=== PATIENT | female | born 1960 | race Caucasian/White ===

== ENCOUNTER 2016-10-20 07:35 | Day surgery (SDC) | payer OTHER ==
[2016-10-20] MEDS ORDERED: NS 1000 ML 1,000 ML ONE (08:29)
[2016-10-20] MEDS ORDERED: DIPRIVAN VIAL 20 ML ONE (09:33)
[2016-10-20 09:59] VITALS: BP 138/68
== END 2016-10-20 10:10 | disposition home or self-care (01) ==
LOC: SURG1 07:35
PROVIDERS: ATTEND Internal Medicine Gastroenterology
PROC: 0DB58ZX Excision of Esophagus, Via Natural or Artificial Opening Endoscopic, Diagnostic (ICD-10-PCS; principal; 2016-10-20 10:15)
PROC: 0DB68ZX Excision of Stomach, Via Natural or Artificial Opening Endoscopic, Diagnostic (ICD-10-PCS; principal; 2016-10-20 10:15)
PROC: 0DJ08ZZ Inspection of Upper Intestinal Tract, Via Natural or Artificial Opening Endoscopic (ICD-10-PCS; principal; 2016-10-20 10:15)
DX: K21.9 Gastro-esophageal reflux disease without esophagitis (principal); Z87.19 Personal history of other diseases of the digestive system; K29.60 Other gastritis without bleeding
CPT/HCPCS: A4217; J3490

== ENCOUNTER → 2017-04-19 | Outpatient (CLI) | payer OTHER ==
--- NOTE | 2017-04-19 12:37 | MRI ---
MRI SPINE LUMBAR WITHOUT CONTRAST CLINICAL HISTORY: 56-year-old female with chronic low back pain. COMPARISON: None. Technique: Multiplanar, multisequence MRI images of the lumbar spine were obtained without the admin istration of contrast. FINDINGS: The most caudad, fully-formed intervertebral disc will be labeled L5-S1 for the purpose of this dictation. Mild straightening of the lumbar lordosis as imaged. Alignment is maintained. There i s preservation of vertebral body and disc space height. Marrow signal is unremarkable with mild signa l loss of the disc at L5-S1. Remaining disc signal is normal. Rudimentary disc at S1-S2. Cord signal is normal. The conus medullaris is normal in signal characteristics and morphology and terminates at the L1-2 level. T11-T12: Small symmetric disc bulge without central canal or neural foraminal stenosis. T12-L1: Small symmetric disc bulge with mild facet hypertrophy without central canal or neural forami nal stenosis. L1-L2: Moderate symmetric disc bulge and facet hypertrophy without central canal or neural foraminal stenosis. L2-L3: Moderate symmetric disc bulge with moderate facet hypertrophy and mild thickening of ligamentu m flavum without central canal or neural foraminal stenosis. L3-L4: Large symmetric disc bulge with moderate facet hypertrophy without central canal or neural for aminal stenosis. L4-L5: Large symmetric disc bulge with severe facet hypertrophy and bilateral posterior subcentimeter synovial cysts. Mild bilateral neural foraminal stenosis with flattening of the dorsal aspect of the exiting L4 nerve roots. L5-S1: Large symmetric disc bulge with severe facet hypertrophy and thickening of the ligamentum flav um with fluid within the facet joints. Moderate left neural foraminal stenosis with flattening of the dorsal aspect of the exiting L5 nerve root with mild right-sided neural foraminal stenosis. Paraspinous soft tissues demonstrate mild fatty atrophy of the paraspinous musculature. Remaining par aspinous soft tissues are unremarkable. IMPRESSION: 1. 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 2. See level by level descriptions above. Reported By:
== END ==
LOC: RAD 09:15
PROVIDERS: ATTEND Internal Medicine
DX: M51.36 Other intervertebral disc degeneration, lumbar region (principal); M51.37 Other intervertebral disc degeneration, lumbosacral region
CPT/HCPCS: 72148

== ENCOUNTER 2017-05-04 16:08 | Observation (INO) | payer OTHER ==
[2017-05-04] MEDS: DUONEB 0.5 MG/3 MG NEB SCH ×2 (16:45→21:14)
[2017-05-04] MEDS ORDERED: DUONEB 0.5 MG/3 MG ONE (16:46)
[2017-05-04 18:03] VITALS: BMI 36.4
[2017-05-04 18:32] LABS: BASOPHILS % (AUTO) 0.4 % (0.2-1.0); EOSINOPHILS % (AUTO) 0.2 % (0.9-2.9); HEMATOCRIT 31.1 % (36.0-47.0); HEMOGLOBIN 10.6 g/dL (12.0-16.0); LYMPHOCYTES # (AUTO) 1.5 X10^3/uL (1.3-2.9); LYMPHOCYTES % (AUTO) 22.1 % (21.0-51.0); MEAN CORPUSCULAR HEMOGLOBIN 31.9 pg (27.0-34.0); MEAN CORPUSCULAR VOLUME 93.6 fL (80.0-100.0); MEAN PLATELET VOLUME 9.7 fL (7.4-11.0); MONOCYTES # (AUTO) 0.6 x10^3/uL (0.3-0.8); MONOCYTES % (AUTO) 8.6 % (0.0-13.0); NEUTROPHILS # (AUTO) 4.6 x10^3/uL (2.2-4.8); NEUTROPHILS % (AUTO) 68.7 % (42.0-75.0); PLATELET COUNT 250 X10^3/uL (150.0-450.0); RED BLOOD COUNT 3.32 X10^6/uL (3.5-5.4); RED CELL DISTRIBUTION WIDTH 15.7 % (11.6-16.5); WHITE BLOOD COUNT 6.7 X10^3/uL (3.6-10.0)
[2017-05-04 18:55] LABS: ALANINE AMINOTRANSFERASE 31 Units/L (12-78); ALBUMIN 3.4 g/dL (3.4-5.0); ALKALINE PHOSPHATASE 49 Units/L (46-116); ASPARTATE AMINO TRANSFERASE 17 Units/L (15-37); BLOOD UREA NITROGEN 10 mg/dL (7-18); CALCIUM 8.6 mg/dL (8.5-10.1); CHLORIDE 105 mmol/L (98-107); COR NA(FOR HYPERGLY) 143 mmol/L (136-145); SODIUM 141 mmol/L (136-145); TOTAL PROTEIN 6.8 g/dL (6.4-8.2); eGFR BLACK RACES 55 (>60); eGFR NON BLACK RACES 45 (>60)
--- NOTE | 2017-05-04 18:56 | RAD ---
History: Cough and shortness of breath Study: PA and lateral chest Comparison: April 22, 2016 Reported By:
[2017-05-04] MEDS ORDERED: LEVAQUIN PREMIX IV 750 MG 750 MG/150 ML BAG IV SCH (19:00)
[2017-05-04] MEDS ORDERED: POTASSIUM CHL 40 MEQ/NS 0.45% 500 ML IV PRN (19:16)
[2017-05-04] MEDS ORDERED: POTASSIUM CHLORIDE LIQ 20 MEQ UDC PO PRN (19:16)
[2017-05-04] MEDS ORDERED: MAGNESIUM SULFATE 1 GM/100 mL PREMIX 1 GM/100 ML BAG IV PRN (19:16)
[2017-05-04] MEDS ORDERED: POTASSIUM CHL 60 MEQ/NS 0.45% 500 ML IV PRN (19:16)
[2017-05-04] MEDS ORDERED: K-RIDER 10 MEQ/NS 100 ML 10 MEQ/100 ML BAG IV PRN (19:16)
[2017-05-04] MEDS ORDERED: MAG-OX TAB PO PRN (19:16)
[2017-05-04] MEDS ORDERED: NS 1/2 1000 ML IV 1,000 ML IV ONE (19:19)
[2017-05-04] MEDS: NS 1/2 1000 ML IV 1,000 ML IV SCH (19:27)
[2017-05-04] MEDS: SOLU-Medrol 125 MG VIAL IVP SCH ×2 (19:27→22:48)
[2017-05-04] MEDS: SNACK - Diabetic Appropriate PO SCH (20:45)
[2017-05-04] MEDS: HumuLIN R SUBCUT PRN (21:11)
[2017-05-04] MEDS: K-LYTE EFFERVESCENT PO PRN (21:41)
[2017-05-04] MEDS ORDERED: AMBIEN PO PRN (21:44)
[2017-05-04] MEDS: ZOSYN VIAL 4.5 GM 4.5 GM in NS 100 ML IV + SPIKE MINIBAG* 100 ML IV SCH (22:47)
[2017-05-04] MEDS: ROBITUSSIN DM PO SCH (22:48)
[2017-05-05] MEDS: DUONEB 0.5 MG/3 MG NEB SCH ×6 (01:11→21:40)
[2017-05-05] MEDS: SOLU-Medrol 125 MG VIAL IVP SCH ×3 (05:32→22:13)
[2017-05-05] MEDS: ZOSYN VIAL 4.5 GM 4.5 GM in NS 100 ML IV + SPIKE MINIBAG* 100 ML IV SCH (05:33)
[2017-05-05] MEDS: HumuLIN R SUBCUT PRN ×6 (06:23→22:40)
[2017-05-05 06:31] LABS: BASOPHILS % (AUTO) 0.3 % (0.2-1.0); HEMATOCRIT 32.8 % (36.0-47.0); HEMOGLOBIN 10.9 g/dL (12.0-16.0); LYMPHOCYTES # (AUTO) 0.6 X10^3/uL (1.3-2.9); LYMPHOCYTES % (AUTO) 10.1 % (21.0-51.0); MEAN CORPUSCULAR HEMOGLOBIN 31.5 pg (27.0-34.0); MEAN CORPUSCULAR HGB CONC 33.2 g/dL (33.0-35.0); MEAN CORPUSCULAR VOLUME 94.9 fL (80.0-100.0); MEAN PLATELET VOLUME 10.1 fL (7.4-11.0); MONOCYTES # (AUTO) 0.1 x10^3/uL (0.3-0.8); MONOCYTES % (AUTO) 2.3 % (0.0-13.0); NEUTROPHILS # (AUTO) 5.5 x10^3/uL (2.2-4.8); NEUTROPHILS % (AUTO) 87.3 % (42.0-75.0); PLATELET COUNT 222 X10^3/uL (150.0-450.0); RED BLOOD COUNT 3.46 X10^6/uL (3.5-5.4); RED CELL DISTRIBUTION WIDTH 15.5 % (11.6-16.5); WHITE BLOOD COUNT 6.3 X10^3/uL (3.6-10.0)
[2017-05-05 06:43] LABS: ALBUMIN 3.2 g/dL (3.4-5.0); CALCIUM 8.5 mg/dL (8.5-10.1); CARBON DIOXIDE 18.9 mmol/L (21-32); COR CA(FOR HYPOALB) 9.1 mg/dL (8.5-10.1); CREATININE 1.41 mg/dL (0.55-1.02); MAGNESIUM 1.7 mg/dL (1.7-2.9)
[2017-05-05] MEDS: TUSSIONEX PENNKINETIC SUSP PO PRN (09:50)
[2017-05-05] MEDS: ROBITUSSIN DM PO SCH ×4 (10:01→22:12)
[2017-05-05] MEDS: K-LYTE EFFERVESCENT PO PRN (10:15)
[2017-05-05] MEDS ORDERED: PHENERGAN TAB 25 MG PO PRN (10:46)
[2017-05-05] MEDS ORDERED: LASIX PO PRN (10:46)
[2017-05-05] MEDS ORDERED: AMBIEN PO PRN (10:46)
[2017-05-05] MEDS ORDERED: PriLOSEC PO SCH (11:00)
[2017-05-05] MEDS: BROVANA IN SCH ×2 (11:00→21:40)
[2017-05-05] MEDS: MUCOMYST (RESPIRATORY USE ONLY) NEB SCH ×2 (11:00→21:40)
[2017-05-05] MEDS ORDERED: ZANAFLEX PO PRN (11:09)
[2017-05-05] MEDS: XANAX PO PRN (11:09)
[2017-05-05] MEDS: BUSPAR PO SCH ×2 (11:34→22:10)
[2017-05-05] MEDS: LOPRESSOR TAB 50 MG PO SCH ×2 (11:35→22:11)
[2017-05-05] MEDS: LIPITOR TAB 40 MG PO SCH (11:35)
[2017-05-05] MEDS: MOBIC TAB 15 MG PO SCH (11:35)
[2017-05-05] MEDS: ZESTRIL TAB 5 MG PO SCH (11:36)
[2017-05-05] MEDS: SINGULAIR TAB 10 MG PO SCH (11:36)
[2017-05-05] MEDS: PROTONIX TAB 40 MG PO SCH (11:36)
[2017-05-05] MEDS: AMARYL TAB 4 MG PO SCH (11:38)
[2017-05-05] MEDS: NORCO 10/325 TAB PO PRN ×2 (12:27→22:27)
[2017-05-05] MEDS: TRICOR TAB 160 MG PO SCH (12:28)
[2017-05-05] MEDS: MICRO K EXTEN CAP 10 MEQ PO SCH (12:29)
[2017-05-05] MEDS: ZOSYN VIAL 4.5 GM 4.5 GM in NS 100 ML IV 100 ML IV SCH ×2 (15:43→22:15)
[2017-05-05] MEDS: NEURONTIN CAP 300 MG PO SCH ×2 (15:43→22:13)
--- NOTE | 2017-05-05 15:45 | DR.H&P ---
H&P - History & Physical for Day of: H&P Date: 05/04/17 - Chief Complaint Chief Complaint: FEVER, CHILLS, N/V, CCC - Allergies Allergies/Adverse Reactions: Allergies Allergy/AdvReac Type Severity Reaction Status Date / Time No Known Drug Allergies Allergy Verified 05/04/17 17:08 [NKDA] - History of Present Illness History of Present Illness: PATIENT IS A 56-YEAR-OLD WHITE FEMALE WHO WAS A DIRECT ADMIT FROM dR. Duran'S OFFICE AFTER PRESENTING WITH COMPLAINTS OF FEVER OR CHILLS NAUSEA VOMITING COUGH COLD AND CONGESTION. pATIENT STATES SHE WAS AROUND HER GRANDDAUGHTER WHO WAS SEEING AND HAD A SUDDEN ONSET OF SYMPTOMS. pATIENT DOES HAVE A PAST MEDICAL HISTORY OF copd, DIABETES, HYPERTENSION, AND OSTEOARTHRITIS. pLAN TO ADMIT PATIENT FOR FURTHER EVALUATION OF RESPIRATORY ILLNESS. bLOOD AND SPUTUM CULTURES COLLECTED ON ADMISSION START iv ANTIBIOTICS AND RESPIRATORY THERAPY. - Past Medical History Past Medical History: Anxiety, Arthritis, COPD, Depression, Diabetes, Dyslipidemia, GERD, Hypertension - Past Surgical History Surgical History: Cholecystectomy, Hysterectomy, Ortho Surgery - Family History Family Medical History: Diabetes Mellitus, Cancer, [place], Coronary Artery Disease, Hypertension - Social History Does patient currently use any type of tobacco product: Yes Have you used tobacco products in the last 12 months: Yes Type of Tobacco Use: Cigarettes How many years tobacco product used: 30 Packs per day or dips/chews per day: 1 Does any household member use tobacco: No Alcohol Use: None Drug Use: None - Medications Home Medications: Alprazolam 1 tab PO BID PRN 05/04/17 [History Confirmed 05/04/17] Pantoprazole Sodium 40 mg [PROTONIX 40 MG *] 1 tab PO DAILY 05/04/17 [History Confirmed 05/04/17] Promethazine HCl 1 tab PO Q6H PRN 05/04/17 [History Confirmed 05/04/17] Sertraline HCl [ZOLOFT 100 MG *] 1 tab PO HS 05/04/17 [History Confirmed ] Zolpidem Tartrate [AMBIEN 10 MG *] 10 mg PO HS PRN 05/04/17 [History Confirmed 05/04/17] - Review of Systems Constitutional: Fever, Chills, Weakness Eyes: No Symptoms Reported ENT: No Symptoms Reported Respiratory: Cough, Shortness of Breath, Sputum, Wheezing Cardiovascular: No Symptoms Reported Gastrointestinal: Nausea, Vomiting Genitourinary: No Symptoms Reported Musculoskeletal: Back Pain, Leg Pain Skin: No Symptoms Reported Neurological: Weakness - Physical Exam Vital Signs: Temperature 97.6 F Pulse Rate [Right Brachial] 93 Pulse Rate 83 Respiratory Rate 20 Blood Pressure [Left Arm] 119/56 Blood Pressure [Right Arm] 135/62 Blood Pressure 138/68 O2 Sat by Pulse Oximetry 95 Oriented: Normal Eyes: Normal Ear: Normal Nose: Normal Throat: Red, Dry Respiratory: Wheezes Throughout, RLL Diminished, LLL Diminished Cardiovascular: Tachycardia : Normal Auscultation: Bowel Sounds: Normal Palpation: Normal Tenderness: Epigastric Skin: Decreased Turgur Musculoskeletal: Right, Left, Knee, Back:Lumbar Psychiatric: Anxiety Affect: Anxious Speech Pattern: Clear, Appropriate - Assessment/Plan (1) Flu-like symptoms Status: Acute Plan: ADMIT, IV ATBX THERAPY. BLOOD AND SPUTUM CULTURES. IV HYDRATION, RESP THERAPY, SUPPLEMENTAL O2. SSI, IV STEROIDS, FLU SWAB, RESUME HOME MEDS (2) Acute bronchitis with COPD Status: Acute (3) Essential hypertension Status: Chronic (4) MOE (generalized anxiety disorder) Status: Chronic (5) GERD (gastroesophageal reflux disease) Status: Chronic (6) Hypertension Qualifiers: Status: Chronic
[2017-05-05] MEDS: GLUCOPHAGE PO SCH (17:16)
[2017-05-05] MEDS ORDERED: GLUCOPHAGE ONE (17:19)
[2017-05-05] MEDS: NS 1/2 1000 ML IV 1,000 ML IV SCH (18:57)
[2017-05-05] MEDS: SNACK - Diabetic Appropriate PO SCH (20:30)
[2017-05-05] MEDS ORDERED: ZOLOFT PO ONE (20:51)
[2017-05-05] MEDS: ZOLOFT PO SCH (22:12)
[2017-05-05] MEDS: AMBIEN PO PRN (22:27)
[2017-05-06] MEDS: DUONEB 0.5 MG/3 MG NEB SCH ×6 (01:20→21:24)
[2017-05-06 06:11] LABS: BASOPHILS % (AUTO) 0.2 % (0.2-1.0); HEMATOCRIT 30.1 % (36.0-47.0); HEMOGLOBIN 10.3 g/dL (12.0-16.0); LYMPHOCYTES # (AUTO) 0.7 X10^3/uL (1.3-2.9); LYMPHOCYTES % (AUTO) 6.3 % (21.0-51.0); MEAN CORPUSCULAR HEMOGLOBIN 32.3 pg (27.0-34.0); MEAN CORPUSCULAR HGB CONC 34.4 g/dL (33.0-35.0); MEAN CORPUSCULAR VOLUME 93.9 fL (80.0-100.0); MEAN PLATELET VOLUME 9.8 fL (7.4-11.0); MONOCYTES # (AUTO) 0.5 x10^3/uL (0.3-0.8); MONOCYTES % (AUTO) 4.4 % (0.0-13.0); NEUTROPHILS # (AUTO) 9.6 x10^3/uL (2.2-4.8); NEUTROPHILS % (AUTO) 89.1 % (42.0-75.0); PLATELET COUNT 280 X10^3/uL (150.0-450.0); WHITE BLOOD COUNT 10.8 X10^3/uL (3.6-10.0)
[2017-05-06] MEDS ORDERED: GLUCOPHAGE ONE ×2 (06:15→17:02)
[2017-05-06 06:25] LABS: ALBUMIN 3.1 g/dL (3.4-5.0); CALCIUM 8.4 mg/dL (8.5-10.1); CARBON DIOXIDE 22.9 mmol/L (21-32); COR CA(FOR HYPOALB) 9.1 mg/dL (8.5-10.1); CREATININE 1.32 mg/dL (0.55-1.02); TOTAL PROTEIN 6.4 g/dL (6.4-8.2)
[2017-05-06] MEDS: AMARYL TAB 4 MG PO SCH (06:25)
[2017-05-06] MEDS: NEURONTIN CAP 300 MG PO SCH ×3 (06:25→21:32)
[2017-05-06] MEDS: SOLU-Medrol 125 MG VIAL IVP SCH ×3 (06:26→22:26)
[2017-05-06] MEDS: GLUCOPHAGE PO SCH ×2 (06:28→17:19)
[2017-05-06] MEDS: HumuLIN R SUBCUT PRN ×2 (06:28→22:41)
[2017-05-06] MEDS: ZOSYN VIAL 4.5 GM 4.5 GM in NS 100 ML IV 100 ML IV SCH ×3 (06:31→21:33)
[2017-05-06] MEDS ORDERED: LEVAQUIN PREMIX IV 750 MG 750 MG/150 ML BAG IV SCH (09:00)
[2017-05-06] MEDS: BUSPAR PO SCH ×2 (09:21→21:41)
[2017-05-06] MEDS: NORCO 10/325 TAB PO PRN ×2 (09:21→18:48)
[2017-05-06] MEDS: ZyrTEC TAB 10 MG PO SCH (09:22)
[2017-05-06] MEDS: LOPRESSOR TAB 50 MG PO SCH ×2 (09:22→21:33)
[2017-05-06] MEDS: PROTONIX TAB 40 MG PO SCH (09:22)
[2017-05-06] MEDS: ZESTRIL TAB 5 MG PO SCH (09:22)
[2017-05-06] MEDS: SINGULAIR TAB 10 MG PO SCH (09:23)
[2017-05-06] MEDS: ROBITUSSIN DM PO SCH ×4 (09:23→21:32)
[2017-05-06] MEDS: MICRO K EXTEN CAP 10 MEQ PO SCH (09:23)
[2017-05-06] MEDS: LIPITOR TAB 40 MG PO SCH (09:23)
[2017-05-06] MEDS: MOBIC TAB 15 MG PO SCH (09:23)
[2017-05-06] MEDS: TUSSIONEX PENNKINETIC SUSP PO PRN (09:23)
[2017-05-06] MEDS: TRICOR TAB 160 MG PO SCH (09:23)
[2017-05-06] MEDS: XANAX PO PRN ×2 (09:28→21:41)
[2017-05-06] MEDS: MUCOMYST (RESPIRATORY USE ONLY) NEB SCH ×2 (09:40→21:24)
[2017-05-06] MEDS: BROVANA IN SCH ×2 (09:40→21:24)
[2017-05-06] MEDS: NS 1/2 1000 ML IV 1,000 ML IV SCH (17:19)
[2017-05-06] MEDS ORDERED: ZOLOFT PO ONE (19:34)
[2017-05-06] MEDS: SNACK - Diabetic Appropriate PO SCH (20:00)
[2017-05-06] MEDS: ZOLOFT PO SCH (21:33)
[2017-05-06] MEDS: AMBIEN PO PRN (21:42)
[2017-05-07] MEDS: DUONEB 0.5 MG/3 MG NEB SCH ×4 (01:14→12:16)
[2017-05-07] MEDS: NS 1/2 1000 ML IV 1,000 ML IV SCH (02:40)
[2017-05-07] MEDS ORDERED: GLUCOPHAGE ONE (05:28)
[2017-05-07] MEDS: ZOSYN VIAL 4.5 GM 4.5 GM in NS 100 ML IV 100 ML IV SCH (05:39)
[2017-05-07] MEDS: NEURONTIN CAP 300 MG PO SCH ×2 (05:39→14:14)
[2017-05-07] MEDS: SOLU-Medrol 125 MG VIAL IVP SCH ×2 (05:40→14:14)
[2017-05-07 06:02] LABS: BASOPHILS % (AUTO) 0.2 % (0.2-1.0); HEMATOCRIT 30.8 % (36.0-47.0); HEMOGLOBIN 10.4 g/dL (12.0-16.0); LYMPHOCYTES # (AUTO) 0.8 X10^3/uL (1.3-2.9); LYMPHOCYTES % (AUTO) 7.4 % (21.0-51.0); MEAN CORPUSCULAR HEMOGLOBIN 32.2 pg (27.0-34.0); MEAN CORPUSCULAR HGB CONC 33.8 g/dL (33.0-35.0); MEAN CORPUSCULAR VOLUME 95.3 fL (80.0-100.0); MEAN PLATELET VOLUME 9.8 fL (7.4-11.0); MONOCYTES # (AUTO) 0.4 x10^3/uL (0.3-0.8); MONOCYTES % (AUTO) 3.9 % (0.0-13.0); NEUTROPHILS # (AUTO) 9.6 x10^3/uL (2.2-4.8); NEUTROPHILS % (AUTO) 88.5 % (42.0-75.0); PLATELET COUNT 267 X10^3/uL (150.0-450.0); RED BLOOD COUNT 3.24 X10^6/uL (3.5-5.4); WHITE BLOOD COUNT 10.8 X10^3/uL (3.6-10.0)
[2017-05-07] MEDS: AMARYL TAB 4 MG PO SCH (06:03)
[2017-05-07] MEDS: GLUCOPHAGE PO SCH (06:04)
[2017-05-07] MEDS: HumuLIN R SUBCUT PRN ×2 (06:18→11:56)
[2017-05-07 06:56] LABS: CALCIUM 8.1 mg/dL (8.5-10.1); CARBON DIOXIDE 21.2 mmol/L (21-32); COR CA(FOR HYPOALB) 8.9 mg/dL (8.5-10.1); CREATININE 1.35 mg/dL (0.55-1.02); TOTAL PROTEIN 6.3 g/dL (6.4-8.2)
--- NOTE | 2017-05-07 07:59 | RAD ---
The Examination: Portable AP upright chest History: COPD Comparison reference 05/04/2017 Findings: Continued normal heart size. There is moderate distention and congestion of the central pul monary vessels. This is probably significant in light of the erect patient position on this mobile ex amination. There is no evidence for superimposed consolidation, pleural fluid or pulmonary edema. Impression: Pulmonary vascular congestion. No evidence for pneumonia or pulmonary edema. Reported By:
[2017-05-07] MEDS: MUCOMYST (RESPIRATORY USE ONLY) NEB SCH (08:53)
[2017-05-07] MEDS: BROVANA IN SCH (08:53)
[2017-05-07] MEDS: MICRO K EXTEN CAP 10 MEQ PO SCH (09:41)
[2017-05-07] MEDS: LOPRESSOR TAB 50 MG PO SCH (09:41)
[2017-05-07] MEDS: ZyrTEC TAB 10 MG PO SCH (09:41)
[2017-05-07] MEDS: ROBITUSSIN DM PO SCH ×2 (09:41→14:14)
[2017-05-07] MEDS: ZESTRIL TAB 5 MG PO SCH (09:41)
[2017-05-07] MEDS: MOBIC TAB 15 MG PO SCH (09:41)
[2017-05-07] MEDS: SINGULAIR TAB 10 MG PO SCH (09:41)
[2017-05-07] MEDS: LIPITOR TAB 40 MG PO SCH (09:41)
[2017-05-07] MEDS: TRICOR TAB 160 MG PO SCH (09:41)
[2017-05-07] MEDS: BUSPAR PO SCH (09:42)
[2017-05-07] MEDS: PROTONIX TAB 40 MG PO SCH (09:42)
[2017-05-07 12:20] VITALS: BP 150/70
== END 2017-05-07 15:30 | disposition home or self-care (01) ==
LOC: MED/SURG 16:08
PROVIDERS: ADMIT Internal Medicine; ATTEND Internal Medicine
DX: J20.8 Acute bronchitis due to other specified organisms (principal); J44.9 Chronic obstructive pulmonary disease, unspecified; E11.65 Type 2 diabetes mellitus with hyperglycemia; R11.2 Nausea with vomiting, unspecified; I10 Essential (primary) hypertension; F41.8 Other specified anxiety disorders; E78.2 Mixed hyperlipidemia; K21.9 Gastro-esophageal reflux disease without esophagitis; R06.02 Shortness of breath
CPT/HCPCS: 36415; 71010; 71020; 80053; 83735; 84132; 85025; 87040; 87070; 87205; 87502; 94640; 94760; 99231; 99238; A4222; G0378; J1815; J1956; J2543; J2930; J7620

== ENCOUNTER 2017-11-14 16:58 | Inpatient (IN) ==
[2017-11-14 19:10] VITALS: BMI 33.2
[2017-11-14 19:43] LABS: ABG BASE EXCESS 1.1 mmol/L (-2.0-2.0); ABG HCO3 26.6 mmol/L (22-26)
[2017-11-14 19:44] LABS: ABG ALLEN TEST POS
[2017-11-14 19:53] LABS: BASOPHILS # (AUTO) 0.1 X10^3/uL (0.0-0.1); BASOPHILS % (AUTO) 0.9 % (0.2-1.0); EOSINOPHILS # (AUTO) 0.1 x10^3/uL (0.0-0.2); EOSINOPHILS % (AUTO) 1.2 % (0.9-2.9); HEMATOCRIT 35.8 % (36.0-47.0); HEMOGLOBIN 12.2 g/dL (12.0-16.0); LYMPHOCYTES # (AUTO) 2.2 X10^3/uL (1.3-2.9); LYMPHOCYTES % (AUTO) 25.1 % (21.0-51.0); MEAN CORPUSCULAR HEMOGLOBIN 31.1 pg (27.0-34.0); MEAN CORPUSCULAR VOLUME 91.7 fL (80.0-100.0); MEAN PLATELET VOLUME 9.1 fL (7.4-11.0); MONOCYTES # (AUTO) 0.7 x10^3/uL (0.3-0.8); MONOCYTES % (AUTO) 7.5 % (0.0-13.0); NEUTROPHILS # (AUTO) 5.8 x10^3/uL (2.2-4.8); NEUTROPHILS % (AUTO) 65.3 % (42.0-75.0); PLATELET COUNT 274 X10^3/uL (150.0-450.0); RED CELL DISTRIBUTION WIDTH 14.9 % (11.6-16.5)
[2017-11-14 20:01] LABS: CALCIUM 9.1 mg/dL (8.5-10.1); CARBON DIOXIDE 27.8 mmol/L (21-32); CREATININE 1.99 mg/dL (0.55-1.02)
[2017-11-14] MEDS: ROBITUSSIN DM PO PRN (20:24)
[2017-11-14] MEDS: NORCO 5/325 MG TAB PO PRN (20:25)
[2017-11-14] MEDS: ZITHROMAX INJ 500 MG VIAL 500 MG in NS 250 ML IV 250 ML IV SCH (20:25)
[2017-11-14] MEDS: NS 1000 ML 1,000 ML IV SCH (20:26)
[2017-11-14] MEDS: DUONEB 0.5 MG/3 MG NEB SCH (20:39)
[2017-11-14] MEDS ORDERED: NS 100 ML IV + SPIKE MINIBAG* 100 ML IV ONE (20:57)
--- NOTE | 2017-11-14 20:58 | RAD ---
Chest, PA and lateral Indication: Cough, congestion Comparison: 05/07/2017 Findings: The cardiac silhouette is unremarkable. The lungs are grossly clear. No pleural effusion or pneumothorax. Impression: No acute chest process. Reported By:
[2017-11-14] MEDS: FORTAZ or TAZICEF VIAL INJ 1 G in NS 50 ML IV + SPIKE MINIBAG* 50 ML IV SCH (21:20)
[2017-11-14] MEDS ORDERED: LASIX PO PRN (22:08)
--- NOTE | 2017-11-14 23:18 | DR.H&P ---
H&P - History & Physical for Day of: H&P Date: 11/14/17 - Chief Complaint Chief Complaint: Cough and Congestion with SOB - History of Present Illness History of Present Illness: Patient presents today with upper respiratory congestion X 1 weeks . Patient reports productive clear sputum with cough. Does have wheezing and SOB with exertion. The patient reports fever with chills . Patient reports nasal congestion , sore throat , no dizziness , decreased oral intake , fatigue . Patient has been taking Nebs and not helping. Has taken Robitussin, used essential oils without improvement as well. - Past Medical History Past Medical History: Anxiety, Arthritis, COPD, Depression, Diabetes, Dyslipidemia, GERD, Hypertension - Past Surgical History Surgical History: Cholecystectomy, Hysterectomy, Ortho Surgery - Family History Family Medical History: Diabetes Mellitus, Cancer, [place], Coronary Artery Disease, Hypertension - Social History Does patient currently use any type of tobacco product: Yes Have you used tobacco products in the last 12 months: Yes Type of Tobacco Use: Cigarettes How many years tobacco product used: 21 Does any household member use tobacco: No Alcohol Use: None Drug Use: None - Medications Home Medications: No Known Drug Allergies [NKDA] Allergy (Verified 05/04/17 17:08) CONTINUE taking the following medications zolpidem [Ambien] 10 mg PO HS 11/14/17 [History] - Review of Systems Constitutional: Malaise Eyes: No Symptoms Reported ENT: Nose Congestion Respiratory: Cough, Shortness of Breath, SOB with Excertion, Sputum, Wheezing Cardiovascular: No Symptoms Reported Gastrointestinal: No Symptoms Reported Genitourinary: No Symptoms Reported Musculoskeletal: No Symptoms Reported Skin: No Symptoms Reported Neurological: No Symptoms Reported - Physical Exam Vital Signs: Temperature 98.3 F Pulse Rate [Right Radial] 87 Pulse Rate 88 Respiratory Rate 20 Blood Pressure [Left Arm] 91/55 Blood Pressure [Right Arm] 135/62 Blood Pressure 150/70 O2 Sat by Pulse Oximetry 93 Oriented: Normal Eyes: Normal Ear: Normal Nose: Normal Throat: Normal Respiratory: Diminished Throughout (Coarse) Cardiovascular: Normal : Normal Auscultation: Bowel Sounds: Normal Palpation: Normal Tenderness: Normal Skin: Normal Musculoskeletal: Normal Psychiatric: Normal Mood Description: Calm Affect: Normal Speech Pattern: Clear - Assessment/Plan (1) Acute bronchitis with COPD Status: Acute Plan: CXR. IV ANTIBIOTICS, NEBS. LABS (2) COPD exacerbation Status: Acute Plan: CXR. IV ANTIBIOTICS, NEBS. LABS (3) Diabetes mellitus type 2 Status: Chronic Plan: MONITOR BS. SSRI. (4) Essential hypertension Status: Chronic Plan: MONITOR BP. HOME MEDS. - Allergies Allergies/Adverse Reactions: Allergies Allergy/AdvReac Type Severity Reaction Status Date / Time No Known Drug Allergies Allergy Verified 05/04/17 17:08 [NKDA]
[2017-11-14] MEDS: LOPRESSOR TAB 50 MG PO SCH (23:22)
[2017-11-15] MEDS: DUONEB 0.5 MG/3 MG NEB SCH ×6 (00:31→20:59)
[2017-11-15] MEDS ORDERED: NS 100 ML IV + SPIKE MINIBAG* 100 ML IV ONE ×2 (01:35→20:39)
[2017-11-15] MEDS ORDERED: FORTAZ or TAZICEF VIAL INJ ONE ×2 (01:35→20:39)
[2017-11-15 02:52] LABS: BILIRUBIN,URINE NEGATIVE (NEGATIVE); BLOOD/HEMOGLOBIN,URINE 1+ (NEGATIVE); GLUCOSE, URINE NEGATIVE (NEGATIVE); KETONES,URINE NEGATIVE (NEGATIVE); LEUKOCYTE ESTERASE ,URINE 3+ (NEGATIVE); NITRITES,URINE NEGATIVE (NEGATIVE); PROTEIN,URINE 1+ (NEGATIVE); UROBILINOGEN,URINE NORMAL (NORMAL)
[2017-11-15 03:05] LABS: APPEARANCE,URINE CLOUDY (CLEAR); COLOR,URINE YELLOW (YELLOW)
[2017-11-15 03:06] LABS: BACTERIA,URINE TRACE /HPF (NEGATIVE); SQUAMOUS EPITHELIAL CELL,UR FEW /HPF (NEGATIVE)
[2017-11-15 05:07] LABS: BASOPHILS % (AUTO) 0.7 % (0.2-1.0); EOSINOPHILS # (AUTO) 0.1 x10^3/uL (0.0-0.2); EOSINOPHILS % (AUTO) 1.4 % (0.9-2.9); HEMATOCRIT 31.4 % (36.0-47.0); HEMOGLOBIN 10.9 g/dL (12.0-16.0); LYMPHOCYTES # (AUTO) 2.1 X10^3/uL (1.3-2.9); LYMPHOCYTES % (AUTO) 36.6 % (21.0-51.0); MEAN CORPUSCULAR HEMOGLOBIN 31.9 pg (27.0-34.0); MEAN CORPUSCULAR HGB CONC 34.9 g/dL (33.0-35.0); MEAN CORPUSCULAR VOLUME 91.6 fL (80.0-100.0); MEAN PLATELET VOLUME 9.2 fL (7.4-11.0); MONOCYTES # (AUTO) 0.5 x10^3/uL (0.3-0.8); MONOCYTES % (AUTO) 8.5 % (0.0-13.0); NEUTROPHILS % (AUTO) 52.8 % (42.0-75.0); PLATELET COUNT 236 X10^3/uL (150.0-450.0); RED BLOOD COUNT 3.42 X10^6/uL (3.5-5.4); WHITE BLOOD COUNT 5.6 X10^3/uL (3.6-10.0)
[2017-11-15 05:15] LABS: ALANINE AMINOTRANSFERASE 29 Units/L (12-78); ALBUMIN 3.3 g/dL (3.4-5.0); ALKALINE PHOSPHATASE 53 Units/L (46-116); ASPARTATE AMINO TRANSFERASE 21 Units/L (15-37); BLOOD UREA NITROGEN 28 mg/dL (7-18); CALCIUM 8.4 mg/dL (8.5-10.1); CARBON DIOXIDE 28.9 mmol/L (21-32); CHLORIDE 105 mmol/L (98-107); CREATININE 1.59 mg/dL (0.55-1.02); SODIUM 142 mmol/L (136-145); TOTAL PROTEIN 6.7 g/dL (6.4-8.2); eGFR NON BLACK RACES 36 (>60)
[2017-11-15] MEDS: NEURONTIN CAP 300 MG PO SCH ×3 (05:55→21:03)
[2017-11-15] MEDS: FORTAZ or TAZICEF VIAL INJ 1 G in NS 50 ML IV + SPIKE MINIBAG* 50 ML IV SCH ×3 (05:55→21:02)
[2017-11-15] MEDS: AMARYL TAB 4 MG PO SCH (05:59)
[2017-11-15] MEDS ORDERED: GLUCOPHAGE PO SCH (09:00)
[2017-11-15] MEDS ORDERED: FENOFIBRATE PO SCH (09:00)
[2017-11-15] MEDS ORDERED: PATIENT'S HOME MEDICATION (Levocetirizine [Levocetirizine] 1 TAB) PO SCH (09:00)
[2017-11-15] MEDS ORDERED: GLIMEPIRIDE PO SCH (09:00)
[2017-11-15] MEDS ORDERED: PATIENT'S HOME MEDICATION (Lisinopril 5 MG) PO SCH (09:00)
[2017-11-15] MEDS ORDERED: PATIENT'S HOME MEDICATION (Potassium Chloride [K-Tab] 1 TAB) PO SCH (09:00)
[2017-11-15] MEDS: PROTONIX TAB 40 MG PO SCH (09:26)
[2017-11-15] MEDS: SINGULAIR TAB 10 MG PO SCH (09:26)
[2017-11-15] MEDS: ZyrTEC TAB 10 MG PO SCH (09:27)
[2017-11-15] MEDS: LIPITOR TAB 40 MG PO SCH (09:27)
[2017-11-15] MEDS: BUSPAR PO SCH ×2 (09:27→20:17)
[2017-11-15] MEDS: MICRO K EXTEN CAP 10 MEQ PO SCH (09:28)
[2017-11-15] MEDS: TRICOR TAB 160 MG PO SCH (09:28)
[2017-11-15] MEDS: LOPRESSOR TAB 50 MG PO SCH ×2 (09:29→20:18)
[2017-11-15] MEDS: ZESTRIL TAB 5 MG PO SCH (09:30)
[2017-11-15] MEDS: ZITHROMAX INJ 500 MG VIAL 500 MG in NS 250 ML IV 250 ML IV SCH (09:30)
[2017-11-15] MEDS: SOLU-Medrol 40 MG VIAL IVP SCH ×2 (09:38→17:49)
[2017-11-15] MEDS: ROBITUSSIN DM PO PRN (09:39)
[2017-11-15] MEDS: XANAX PO PRN ×2 (10:25→20:30)
[2017-11-15] MEDS: HumuLIN R SUBCUT PRN ×3 (11:30→21:22)
--- NOTE | 2017-11-15 12:14 | PCM.PROG ---
Progress Note - Progress Note for Day of Date of Exam: 11/15/17 - Subjective Subjective: 57YO WF ADMITTED WITH COPD EXACERBATION. CONTINUES TO HAVE CONGESTED COUGH, NASAL CONGESTION AND DYSPNEA. STATES SOB WITH EXERTION. WAS NOTED TO HAVE UTI. KIDNEY FUNCTION IMPROVED WITH HYDRATION. - Past Medical Family Social History Past Med/Fam/Surg Hx: No changes since H&P Allergies: Allergies No Known Drug Allergies [NKDA] Allergy (Verified 05/04/17 17:08) - Review of Systems ROS: No change since H&P - Vital Signs and I&O's Vital Signs: Temperature 97.7 F Pulse Rate [Right Radial] 107 Pulse Rate 89 Respiratory Rate 22 Blood Pressure [Left Arm] 107/52 Blood Pressure [Right Arm] 135/62 Blood Pressure 150/70 O2 Sat by Pulse Oximetry 91 Intake and Output: Intake & Output 11/13/17 11/14/17 11/15/17 11/16/17 11:59 11:59 11:59 11:59 Intake Total 2440 / 2440 Balance 2440 / 2440 - Physical Exam Oriented: Normal Eyes: Normal Ear: Normal Nose: Normal Throat: Normal Cardiovascular: Normal : Normal Auscultation: Bowel Sounds: Normal Palpation: Normal Tenderness: Normal Skin: Normal Musculoskeletal: Normal Psychiatric: Normal Mood Description: Calm Affect: Normal Speech Pattern: Clear, Appropriate - Laboratory and Diagnostics Result Diagrams: 11/15/17 04:24 11/15/17 04:24 Labs: 11/15/17 02:28 Sputum - Expectorated Sputum - Final Laboratory WBC 5.6 X10^3/uL (3.6-10.0) 11/15/17 04:24 RBC 3.42 X10^6/uL (3.5-5.4) L 11/15/17 04:24 Hgb 10.9 g/dL (12.0-16.0) L 11/15/17 04:24 Hct 31.4 % (36.0-47.0) L 11/15/17 04:24 MCV 91.6 fL (80.0-100.0) 11/15/17 04:24 MCH 31.9 pg (27.0-34.0) 11/15/17 04:24 MCHC 34.9 g/dL (33.0-35.0) 11/15/17 04:24 RDW 15.0 % (11.6-16.5) 11/15/17 04:24 Plt Count 236 X10^3/uL (150.0-450.0) 11/15/17 04:24 MPV 9.2 fL (7.4-11.0) 11/15/17 04:24 Neut % (Auto) 52.8 % (42.0-75.0) 11/15/17 04:24 Lymph % (Auto) 36.6 % (21.0-51.0) 11/15/17 04:24 [place] % (Auto) 8.5 % (0.0-13.0) 11/15/17 04:24 Eos % (Auto) 1.4 % (0.9-2.9) 11/15/17 04:24 Baso % (Auto) 0.7 % (0.2-1.0) 11/15/17 04:24 Neut # (Auto) 3.0 x10^3/uL (2.2-4.8) 11/15/17 04:24 Lymph # (Auto) 2.1 X10^3/uL (1.3-2.9) 11/15/17 04:24 [place] # (Auto) 0.5 x10^3/uL (0.3-0.8) 11/15/17 04:24 Eos # (Auto) 0.1 x10^3/uL (0.0-0.2) 11/15/17 04:24 Baso # (Auto) 0.0 X10^3/uL (0.0-0.1) 11/15/17 04:24 Absolute Nucleated RBC 0.0 /100WBC 11/15/17 04:24 Sample Site Lr 11/14/17 19:32 ABG pH 7.380 (7.35-7.45) 11/14/17 19:32 ABG pCO2 45.0 mmHg (35.0-45.0) 11/14/17 19:32 ABG pO2 68.0 mmHg (80.0-100.0) L 11/14/17 19:32 ABG HCO3 26.6 mmol/L (22-26) H 11/14/17 19:32 ABG O2 Saturation 93.0 % (90-100) 11/14/17 19:32 ABG Base Excess 1.1 mmol/L (-2.0-2.0) 11/14/17 19:32 Rip Test Pos 11/14/17 19:32 A-a Gradient 75.0 mmHg 11/14/17 19:32 FiO2 28.000 11/14/17 19:32 Blood Gas Comments Jeff well ae 11/14/17 19:32 Sodium 142 mmol/L (136-145) 11/15/17 04:24 Corrected Sodium TNP 11/15/17 04:24 Potassium 3.8 mmol/L (3.5-5.1) 11/15/17 04:24 Chloride 105 mmol/L (98-107) 11/15/17 04:24 Carbon Dioxide 28.9 mmol/L (21-32) 11/15/17 04:24 BUN 28 mg/dL (7-18) H 11/15/17 04:24 Creatinine 1.59 mg/dL (0.55-1.02) H 11/15/17 04:24 Est GFR (MDRD) Af Amer 43 (>60) L 11/15/17 04:24 Est GFR (MDRD) Non-Af 36 (>60) L 11/15/17 04:24 Glucose 91 mg/dL (65-99) 11/15/17 04:24 POC Glucose (mg/dL) 339 mg/dL (65-99) H 11/15/17 11:15 Calcium 8.4 mg/dL (8.5-10.1) L 11/15/17 04:24 Corrected Calcium 9.0 mg/dL (8.5-10.1) 11/15/17 04:24 Total Bilirubin 0.30 mg/dL (0.2-1.0) 11/15/17 04:24 AST 21 Units/L (15-37) 11/15/17 04:24 ALT 29 Units/L (12-78) 11/15/17 04:24 Alkaline Phosphatase 53 Units/L (46-116) 11/15/17 04:24 Total Protein 6.7 g/dL (6.4-8.2) 11/15/17 04:24 Albumin 3.3 g/dL (3.4-5.0) L 11/15/17 04:24 Globulin 3.4 g/dL (2.5-4.5) 11/15/17 04:24 Albumin/Globulin Ratio 1.0 Ratio (1.1-2.1) L 11/15/17 04:24 Specimen Type Clean catch urine 11/15/17 02:38 Urine Color Yellow (YELLOW) 11/15/17 02:38 Urine Appearance Cloudy (CLEAR) 11/15/17 02:38 Urine pH 6.0 (5.0 - 8.0) 11/15/17 02:38 Ur Specific [place] 1.005 (1.000-1.030) 11/15/17 02:38 Urine Protein 1+ (NEGATIVE) 11/15/17 02:38 Urine Glucose (UA) Negative (NEGATIVE) 11/15/17 02:38 Urine Ketones Negative (NEGATIVE) 11/15/17 02:38 Urine Occult Blood 1+ (NEGATIVE) 11/15/17 02:38 Urine Nitrite Negative (NEGATIVE) 11/15/17 02:38 Urine Bilirubin Negative (NEGATIVE) 11/15/17 02:38 Urine Urobilinogen Normal (NORMAL) 11/15/17 02:38 Ur Leukocyte Esterase 3+ (NEGATIVE) 11/15/17 02:38 Urine RBC 3-5 /HPF (NONE SEEN) 11/15/17 02:38 Urine WBC 20-30 /HPF (NONE SEEN) 11/15/17 02:38 Ur Squamous Epith Cells Few /HPF (NEGATIVE) 11/15/17 02:38 Urine Bacteria Trace /HPF (NEGATIVE) 11/15/17 02:38 Ur Culture Indicated? Yes/culture set up 11/15/17 02:38 - Plan (1) Acute bronchitis with COPD Status: Acute Plan: CXR. IV ANTIBIOTICS, NEBS. LABS (2) COPD exacerbation Status: Acute Plan: CXR. IV ANTIBIOTICS, NEBS. LABS (3) Diabetes mellitus type 2 Status: Chronic Plan: MONITOR BS. SSRI. (4) Essential hypertension Status: Chronic Plan: MONITOR BP. HOME MEDS. (5) Acute on chronic kidney failure Status: Acute Plan: IV HYDRATION. MONITOR KIDNEY FUNCTION (6) UTI (urinary tract infection) Status: Acute Plan: IV ANTIBIOTICS
[2017-11-15] MEDS: NORCO 10/325 TAB PO PRN (13:22)
[2017-11-15] MEDS ORDERED: NS 100 ML IV + SPIKE MINIBAG IV ONE (13:22)
[2017-11-15] MEDS: NS 1000 ML 1,000 ML IV SCH ×2 (17:50→20:34)
[2017-11-15] MEDS ORDERED: ZOLOFT PO ONE (19:47)
[2017-11-15] MEDS: AMBIEN PO SCH (20:19)
[2017-11-15] MEDS: SNACK - Diabetic Appropriate PO SCH (20:29)
[2017-11-15] MEDS: LOVENOX INJ 40 MG SYR SC SCH (20:29)
[2017-11-15] MEDS: NORCO 5/325 MG TAB PO PRN (20:30)
[2017-11-15] MEDS: ZOLOFT PO SCH (20:43)
[2017-11-16] MEDS: SOLU-Medrol 40 MG VIAL IVP SCH ×3 (01:05→17:11)
[2017-11-16] MEDS: ROBITUSSIN DM PO PRN ×4 (01:05→20:13)
[2017-11-16] MEDS: DUONEB 0.5 MG/3 MG NEB SCH ×6 (01:08→20:03)
[2017-11-16] MEDS ORDERED: NS 100 ML IV + SPIKE MINIBAG* 100 ML IV ONE (05:15)
[2017-11-16] MEDS ORDERED: FORTAZ or TAZICEF VIAL INJ ONE (05:15)
[2017-11-16] MEDS: FORTAZ or TAZICEF VIAL INJ 1 G in NS 50 ML IV + SPIKE MINIBAG* 50 ML IV SCH (05:24)
[2017-11-16] MEDS: NEURONTIN CAP 300 MG PO SCH ×3 (05:24→21:08)
[2017-11-16 05:28] LABS: BASOPHILS % (AUTO) 0.1 % (0.2-1.0); HEMATOCRIT 30.1 % (36.0-47.0); HEMOGLOBIN 10.4 g/dL (12.0-16.0); LYMPHOCYTES # (AUTO) 0.7 X10^3/uL (1.3-2.9); LYMPHOCYTES % (AUTO) 5.3 % (21.0-51.0); MEAN CORPUSCULAR HEMOGLOBIN 31.7 pg (27.0-34.0); MEAN CORPUSCULAR HGB CONC 34.4 g/dL (33.0-35.0); MEAN CORPUSCULAR VOLUME 92.1 fL (80.0-100.0); MEAN PLATELET VOLUME 9.6 fL (7.4-11.0); MONOCYTES # (AUTO) 0.4 x10^3/uL (0.3-0.8); MONOCYTES % (AUTO) 2.9 % (0.0-13.0); NEUTROPHILS # (AUTO) 12.8 x10^3/uL (2.2-4.8); NEUTROPHILS % (AUTO) 91.7 % (42.0-75.0); PLATELET COUNT 264 X10^3/uL (150.0-450.0); RED BLOOD COUNT 3.27 X10^6/uL (3.5-5.4); WHITE BLOOD COUNT 13.9 X10^3/uL (3.6-10.0)
[2017-11-16] MEDS: HumuLIN R SUBCUT PRN ×4 (05:30→20:55)
[2017-11-16 05:34] LABS: ALBUMIN 3.2 g/dL (3.4-5.0); CALCIUM 8.3 mg/dL (8.5-10.1); CARBON DIOXIDE 23.8 mmol/L (21-32); COR CA(FOR HYPOALB) 8.9 mg/dL (8.5-10.1); CREATININE 1.4 mg/dL (0.55-1.02); TOTAL PROTEIN 6.6 g/dL (6.4-8.2)
[2017-11-16 05:52] LABS: BAND NEUTROPHILS % 3 % (0-10); PLATELET MORPHOLOGY COMMENT NORMAL (NORMAL)
[2017-11-16] MEDS: AMARYL TAB 4 MG PO SCH (06:05)
--- NOTE | 2017-11-16 06:42 | RAD ---
HISTORY: Cough, congestion Study: Chest AP portable Comparison: 11/14/2017 Findings: The heart is within normal limits in size. The radha are normal. The lung amado are clear. No pleural effusions are identified. The bony thorax is unremarkable. IMPRESSION: No significant abnormality identified Reported By:
[2017-11-16] MEDS: ZITHROMAX INJ 500 MG VIAL 500 MG in NS 250 ML IV 250 ML IV SCH (08:45)
[2017-11-16] MEDS: ZESTRIL TAB 5 MG PO SCH (08:46)
[2017-11-16] MEDS: PROTONIX TAB 40 MG PO SCH (08:46)
[2017-11-16] MEDS: LIPITOR TAB 40 MG PO SCH (08:46)
[2017-11-16] MEDS: TRICOR TAB 160 MG PO SCH (08:46)
[2017-11-16] MEDS: LOPRESSOR TAB 50 MG PO SCH ×2 (08:46→20:19)
[2017-11-16] MEDS: SINGULAIR TAB 10 MG PO SCH (08:46)
[2017-11-16] MEDS: MICRO K EXTEN CAP 10 MEQ PO SCH (08:47)
[2017-11-16] MEDS: BUSPAR PO SCH ×2 (08:47→20:14)
[2017-11-16] MEDS: LOVENOX INJ 40 MG SYR SC SCH (08:48)
[2017-11-16] MEDS: XANAX PO PRN ×2 (08:56→20:20)
[2017-11-16] MEDS: ZyrTEC TAB 10 MG PO SCH (08:57)
[2017-11-16] MEDS: NORCO 5/325 MG TAB PO PRN (13:32)
[2017-11-16] MEDS: FORTAZ or TAZICEF VIAL INJ 1 G in NS 100 ML IV + SPIKE MINIBAG* 100 ML IV SCH ×2 (14:01→21:08)
[2017-11-16] MEDS: ZANAFLEX PO PRN ×2 (14:02→22:03)
[2017-11-16] MEDS ORDERED: ZOLOFT PO ONE (19:56)
[2017-11-16] MEDS: AMBIEN PO SCH (20:19)
[2017-11-16] MEDS: SNACK - Diabetic Appropriate PO SCH (20:19)
[2017-11-16] MEDS: NS 1000 ML 1,000 ML IV SCH ×2 (20:19→23:49)
[2017-11-16] MEDS: ZOLOFT PO SCH (20:19)
[2017-11-16] MEDS: NORCO 10/325 TAB PO PRN (20:21)
[2017-11-17] MEDS: SOLU-Medrol 40 MG VIAL IVP SCH ×3 (00:03→16:20)
[2017-11-17] MEDS: DUONEB 0.5 MG/3 MG NEB SCH ×6 (01:15→20:59)
[2017-11-17 05:22] LABS: BASOPHILS % (AUTO) 0.2 % (0.2-1.0); HEMATOCRIT 28.8 % (36.0-47.0); HEMOGLOBIN 9.7 g/dL (12.0-16.0); LYMPHOCYTES % (AUTO) 6.6 % (21.0-51.0); MEAN CORPUSCULAR HGB CONC 33.6 g/dL (33.0-35.0); MEAN CORPUSCULAR VOLUME 92.4 fL (80.0-100.0); MEAN PLATELET VOLUME 9.2 fL (7.4-11.0); MONOCYTES # (AUTO) 0.4 x10^3/uL (0.3-0.8); MONOCYTES % (AUTO) 2.9 % (0.0-13.0); NEUTROPHILS # (AUTO) 13.1 x10^3/uL (2.2-4.8); NEUTROPHILS % (AUTO) 90.3 % (42.0-75.0); PLATELET COUNT 260 X10^3/uL (150.0-450.0); RED BLOOD COUNT 3.12 X10^6/uL (3.5-5.4); RED CELL DISTRIBUTION WIDTH 14.8 % (11.6-16.5); WHITE BLOOD COUNT 14.5 X10^3/uL (3.6-10.0)
[2017-11-17] MEDS: NEURONTIN CAP 300 MG PO SCH ×3 (05:29→21:05)
[2017-11-17] MEDS: FORTAZ or TAZICEF VIAL INJ 1 G in NS 100 ML IV + SPIKE MINIBAG* 100 ML IV SCH ×3 (05:29→21:05)
[2017-11-17] MEDS: HumuLIN R SUBCUT PRN ×4 (05:36→21:05)
[2017-11-17 05:41] LABS: ALBUMIN 3.2 g/dL (3.4-5.0); CALCIUM 8.1 mg/dL (8.5-10.1); CARBON DIOXIDE 21.2 mmol/L (21-32); COR CA(FOR HYPOALB) 8.7 mg/dL (8.5-10.1); CREATININE 1.31 mg/dL (0.55-1.02); TOTAL PROTEIN 6.5 g/dL (6.4-8.2)
[2017-11-17 05:52] LABS: BAND NEUTROPHILS % 7 % (0-10); PLATELET MORPHOLOGY COMMENT NORMAL (NORMAL)
[2017-11-17] MEDS: AMARYL TAB 4 MG PO SCH (06:00)
[2017-11-17] MEDS: ROBITUSSIN DM PO PRN ×3 (09:02→21:50)
[2017-11-17] MEDS: SINGULAIR TAB 10 MG PO SCH (09:02)
[2017-11-17] MEDS: ZANAFLEX PO PRN ×2 (09:02→21:51)
[2017-11-17] MEDS: LIPITOR TAB 40 MG PO SCH (09:02)
[2017-11-17] MEDS: ZESTRIL TAB 5 MG PO SCH (09:03)
[2017-11-17] MEDS: PROTONIX TAB 40 MG PO SCH (09:03)
[2017-11-17] MEDS: TRICOR TAB 160 MG PO SCH (09:03)
[2017-11-17] MEDS: BUSPAR PO SCH ×2 (09:03→20:40)
[2017-11-17] MEDS: ZyrTEC TAB 10 MG PO SCH (09:03)
[2017-11-17] MEDS: MICRO K EXTEN CAP 10 MEQ PO SCH (09:03)
[2017-11-17] MEDS: LOPRESSOR TAB 50 MG PO SCH ×2 (09:03→20:41)
[2017-11-17] MEDS: ZITHROMAX INJ 500 MG VIAL 500 MG in NS 250 ML IV 250 ML IV SCH (09:04)
[2017-11-17] MEDS: LOVENOX INJ 40 MG SYR SC SCH (09:04)
[2017-11-17] MEDS: XANAX PO PRN ×2 (15:42→22:51)
[2017-11-17] MEDS ORDERED: ZOLOFT PO ONE (19:59)
[2017-11-17] MEDS: SNACK - Diabetic Appropriate PO SCH (20:40)
[2017-11-17] MEDS: NS 1000 ML 1,000 ML IV SCH (20:40)
[2017-11-17] MEDS: AMBIEN PO SCH (20:40)
[2017-11-17] MEDS: ZOLOFT PO SCH (20:41)
[2017-11-18] MEDS: SOLU-Medrol 40 MG VIAL IVP SCH (00:22)
[2017-11-18] MEDS: DUONEB 0.5 MG/3 MG NEB SCH ×6 (01:38→20:50)
[2017-11-18] MEDS: NEURONTIN CAP 300 MG PO SCH ×3 (05:09→21:57)
[2017-11-18] MEDS: FORTAZ or TAZICEF VIAL INJ 1 G in NS 100 ML IV + SPIKE MINIBAG* 100 ML IV SCH ×3 (05:09→21:57)
[2017-11-18] MEDS: HumuLIN R SUBCUT PRN ×2 (05:40→11:46)
[2017-11-18] MEDS: AMARYL TAB 4 MG PO SCH (06:01)
--- NOTE | 2017-11-18 06:15 | RAD ---
Examination: Portable AP chest History: SOB Comparison reference 11/16/2017 Findings: Continued normal transverse heart diameter with no acute pulmonary or pleural abnormality d emonstrated. Impression: No change; no acute findings. Reported By:
[2017-11-18 06:46] LABS: ALANINE AMINOTRANSFERASE 27 Units/L (12-78); ALBUMIN 3.1 g/dL (3.4-5.0); ALKALINE PHOSPHATASE 48 Units/L (46-116); BLOOD UREA NITROGEN 22 mg/dL (7-18); CARBON DIOXIDE 21.4 mmol/L (21-32); CHLORIDE 107 mmol/L (98-107); COR CA(FOR HYPOALB) 8.7 mg/dL (8.5-10.1); COR NA(FOR HYPERGLY) 142 mmol/L (136-145); CREATININE 1.16 mg/dL (0.55-1.02); SODIUM 139 mmol/L (136-145); TOTAL PROTEIN 6.3 g/dL (6.4-8.2); eGFR NON BLACK RACES 52 (>60)
[2017-11-18 06:54] LABS: ASPARTATE AMINO TRANSFERASE 15 Units/L (15-37)
[2017-11-18 07:06] LABS: BASOPHILS % (AUTO) 0.3 % (0.2-1.0); HEMATOCRIT 28.4 % (36.0-47.0); HEMOGLOBIN 9.6 g/dL (12.0-16.0); LYMPHOCYTES # (AUTO) 1.5 X10^3/uL (1.3-2.9); LYMPHOCYTES % (AUTO) 9.2 % (21.0-51.0); MEAN CORPUSCULAR HEMOGLOBIN 31.3 pg (27.0-34.0); MEAN CORPUSCULAR HGB CONC 33.9 g/dL (33.0-35.0); MEAN CORPUSCULAR VOLUME 92.4 fL (80.0-100.0); MEAN PLATELET VOLUME 9.8 fL (7.4-11.0); MONOCYTES # (AUTO) 0.5 x10^3/uL (0.3-0.8); MONOCYTES % (AUTO) 3.4 % (0.0-13.0); NEUTROPHILS # (AUTO) 14.1 x10^3/uL (2.2-4.8); NEUTROPHILS % (AUTO) 87.1 % (42.0-75.0); PLATELET COUNT 261 X10^3/uL (150.0-450.0); RED BLOOD COUNT 3.07 X10^6/uL (3.5-5.4); RED CELL DISTRIBUTION WIDTH 15.3 % (11.6-16.5); WHITE BLOOD COUNT 16.1 X10^3/uL (3.6-10.0)
[2017-11-18 07:10] LABS: PLATELET MORPHOLOGY COMMENT NORMAL (NORMAL)
[2017-11-18] MEDS: LIPITOR TAB 40 MG PO SCH (09:15)
[2017-11-18] MEDS: LOPRESSOR TAB 50 MG PO SCH ×2 (09:15→20:54)
[2017-11-18] MEDS: BUSPAR PO SCH ×2 (09:15→20:54)
[2017-11-18] MEDS: ZITHROMAX INJ 500 MG VIAL 500 MG in NS 250 ML IV 250 ML IV SCH (09:16)
[2017-11-18] MEDS: TRICOR TAB 160 MG PO SCH (09:16)
[2017-11-18] MEDS: ZyrTEC TAB 10 MG PO SCH (09:16)
[2017-11-18] MEDS: MILK OF MAGNESIA PO SCH ×2 (09:16→10:14)
[2017-11-18] MEDS: MICRO K EXTEN CAP 10 MEQ PO SCH (09:16)
[2017-11-18] MEDS: SINGULAIR TAB 10 MG PO SCH (09:17)
[2017-11-18] MEDS: LOVENOX INJ 40 MG SYR SC SCH (09:17)
[2017-11-18] MEDS: PROTONIX TAB 40 MG PO SCH (09:17)
[2017-11-18] MEDS: ZESTRIL TAB 5 MG PO SCH (09:17)
[2017-11-18] MEDS: NORCO 5/325 MG TAB PO PRN (09:29)
[2017-11-18] MEDS: XANAX PO PRN ×2 (09:29→20:56)
[2017-11-18] MEDS: ZANAFLEX PO PRN ×2 (09:30→20:56)
[2017-11-18] MEDS: ROBITUSSIN DM PO PRN ×2 (11:47→20:56)
[2017-11-18] MEDS: NS 1000 ML 1,000 ML IV SCH ×2 (13:35→20:53)
--- NOTE | 2017-11-18 18:04 | PCM.PROG ---
Progress Note - Progress Note for Day of Date of Exam: 11/16/17 - Subjective Subjective: WAS ADMITTED FOR COPD EXACERBATION WITH ACUTE BRONCHITIS. TODAY, SHE CONTINUES WITH COMPLAINTS OF SHORTNESS OF BREATH AND A PRODUCTIVE COUGH. SHE REPORTS THAT SPUTUM IS THICK AND YELLOW IN COLOR. ON EXAMINATION, BILATERAL LUNGS ARE NOTED WITH SCATTERED WHEEZING THROUGHOUT. HER VITALS TODAY ARE 98.0-107-20-97%-124/71. ABNORMAL LAB VALUES INCLUDE THE FOLLOWING: WBC 13.9 , RBC 3.27, HGB 10.4, HCT 30.1, BUN 22, AST 13, CREATININE 1.40, GLUCOSE 358, CALCIUM 8.3, ALBUMIN 3.2. SHE IS CURRENTLY RECEIVING IV ANTIBIOTICS, RESPIRATORY TREATMENTS, AND IV STEROIDS. WE WILL CONTINUE WITH CURRENT PLAN OF CARE TODAY. OTHERWISE, WE WILL FOLLOW UP WITH AM LABS AND CONTINUE TO MONITOR PATIENT. - Past Medical Family Social History Past Med/Fam/Surg Hx: No changes since H&P Allergies: Allergies No Known Drug Allergies [NKDA] Allergy (Verified 05/04/17 17:08) - Review of Systems ROS: No change since H&P - Vital Signs and I&O's Vital Signs: Temperature 97.7 F Pulse Rate [Left Brachial] 79 Pulse Rate [Right Radial] 74 Pulse Rate 86 Respiratory Rate 22 Blood Pressure [Left Arm] 143/78 Blood Pressure [Right Arm] 134/67 Blood Pressure 150/70 O2 Sat by Pulse Oximetry 97 Intake and Output: Intake & Output 11/16/17 11/17/17 11/18/17 11/19/17 11:59 11:59 11:59 11:59 Intake Total 4400 / 4400 4440 / 4440 3730 / 3730 1680 / 1680 Balance 4400 / 4400 4440 / 4440 3730 / 3730 1680 / 1680 - Physical Exam Oriented: Normal Eyes: Normal Ear: Normal Nose: Normal Throat: Normal Respiratory: Generalized, Wheezes Cardiovascular: Normal : Normal Auscultation: Bowel Sounds: Normal Palpation: Normal Tenderness: Normal Skin: Normal Musculoskeletal: Normal Psychiatric: Normal Mood Description: Calm Affect: Normal Speech Pattern: Clear, Appropriate - Laboratory and Diagnostics Result Diagrams: 11/18/17 05:30 11/18/17 05:30 Labs: 11/17/17 12:12 Sputum - Expectorated Sputum Sputum Culture - Final 11/17/17 12:12 Sputum - Expectorated Sputum - Final 11/15/17 02:37 Urine,Clean Catch Urine Culture - Final 11/15/17 02:28 Sputum - Expectorated Sputum Sputum Culture - Final 11/15/17 02:28 Sputum - Expectorated Sputum - Final 11/14/17 19:43 Blood Blood Culture - Preliminary Laboratory WBC 16.1 X10^3/uL (3.6-10.0) H 11/18/17 05:30 RBC 3.07 X10^6/uL (3.5-5.4) L 11/18/17 05:30 Hgb 9.6 g/dL (12.0-16.0) L 11/18/17 05:30 Hct 28.4 % (36.0-47.0) L 11/18/17 05:30 MCV 92.4 fL (80.0-100.0) 11/18/17 05:30 MCH 31.3 pg (27.0-34.0) 11/18/17 05:30 MCHC 33.9 g/dL (33.0-35.0) 11/18/17 05:30 RDW 15.3 % (11.6-16.5) 11/18/17 05:30 Plt Count 261 X10^3/uL (150.0-450.0) 11/18/17 05:30 Plt Count Comment Adequate (ADEQUATE) 11/18/17 05:30 MPV 9.8 fL (7.4-11.0) 11/18/17 05:30 Neut % (Auto) 87.1 % (42.0-75.0) H 11/18/17 05:30 Lymph % (Auto) 9.2 % (21.0-51.0) L 11/18/17 05:30 [place] % (Auto) 3.4 % (0.0-13.0) 11/18/17 05:30 Eos % (Auto) 0.0 % (0.9-2.9) L 11/18/17 05:30 Baso % (Auto) 0.3 % (0.2-1.0) 11/18/17 05:30 Neut # (Auto) 14.1 x10^3/uL (2.2-4.8) H 11/18/17 05:30 Lymph # (Auto) 1.5 X10^3/uL (1.3-2.9) 11/18/17 05:30 [place] # (Auto) 0.5 x10^3/uL (0.3-0.8) 11/18/17 05:30 Eos # (Auto) 0.0 x10^3/uL (0.0-0.2) 11/18/17 05:30 Baso # (Auto) 0.0 X10^3/uL (0.0-0.1) 11/18/17 05:30 Absolute Nucleated RBC 0.1 /100WBC 11/18/17 05:30 Total Counted 100 11/17/17 04:56 Neutrophils % (Manual) 86 % (39-76) H 11/17/17 04:56 Band Neutrophils % 7 % (0-10) 11/17/17 04:56 Lymphocytes % (Manual) 4 % (13-43) L 11/17/17 04:56 Monocytes % (Manual) 3 % (4-9) L 11/17/17 04:56 Plt Clumps, EDTA Rare 11/18/17 05:30 Plt Morphology Comment Normal (NORMAL) 11/18/17 05:30 RBC Morphology Normal (NORMAL) 11/18/17 05:30 Sample Site Lr 11/14/17 19:32 ABG pH 7.380 (7.35-7.45) 11/14/17 19:32 ABG pCO2 45.0 mmHg (35.0-45.0) 11/14/17 19:32 ABG pO2 68.0 mmHg (80.0-100.0) L 11/14/17 19:32 ABG HCO3 26.6 mmol/L (22-26) H 11/14/17 19:32 ABG O2 Saturation 93.0 % (90-100) 11/14/17 19:32 ABG Base Excess 1.1 mmol/L (-2.0-2.0) 11/14/17 19:32 Rip Test Pos 11/14/17 19:32 A-a Gradient 75.0 mmHg 11/14/17 19:32 FiO2 28.000 11/14/17 19:32 Blood Gas Comments Jeff well ae 11/14/17 19:32 Sodium 139 mmol/L (136-145) 11/18/17 05:30 Corrected Sodium 142 mmol/L (136-145) 11/18/17 05:30 Potassium 4.9 mmol/L (3.5-5.1) 11/18/17 05:30 Chloride 107 mmol/L (98-107) 11/18/17 05:30 Carbon Dioxide 21.4 mmol/L (21-32) 11/18/17 05:30 BUN 22 mg/dL (7-18) H 11/18/17 05:30 Creatinine 1.16 mg/dL (0.55-1.02) H 11/18/17 05:30 Est GFR (MDRD) Af Amer > 60 (>60) 11/18/17 05:30 Est GFR (MDRD) Non-Af 52 (>60) L 11/18/17 05:30 Glucose 227 mg/dL (65-99) H 11/18/17 05:30 POC Glucose (mg/dL) 119 mg/dL (65-99) H 11/18/17 16:33 Calcium 8.0 mg/dL (8.5-10.1) L 11/18/17 05:30 Corrected Calcium 8.7 mg/dL (8.5-10.1) 11/18/17 05:30 Total Bilirubin 0.20 mg/dL (0.2-1.0) 11/18/17 05:30 AST 15 Units/L (15-37) 11/18/17 05:30 ALT 27 Units/L (12-78) 11/18/17 05:30 Alkaline Phosphatase 48 Units/L (46-116) 11/18/17 05:30 Total Protein 6.3 g/dL (6.4-8.2) L 11/18/17 05:30 Albumin 3.1 g/dL (3.4-5.0) L 11/18/17 05:30 Globulin 3.2 g/dL (2.5-4.5) 11/18/17 05:30 Albumin/Globulin Ratio 1.0 Ratio (1.1-2.1) L 11/18/17 05:30 Specimen Type Clean catch urine 11/15/17 02:38 Urine Color Yellow (YELLOW) 11/15/17 02:38 Urine Appearance Cloudy (CLEAR) 11/15/17 02:38 Urine pH 6.0 (5.0 - 8.0) 11/15/17 02:38 Ur Specific [place] 1.005 (1.000-1.030) 11/15/17 02:38 Urine Protein 1+ (NEGATIVE) 11/15/17 02:38 Urine Glucose (UA) Negative (NEGATIVE) 11/15/17 02:38 Urine Ketones Negative (NEGATIVE) 11/15/17 02:38 Urine Occult Blood 1+ (NEGATIVE) 11/15/17 02:38 Urine Nitrite Negative (NEGATIVE) 11/15/17 02:38 Urine Bilirubin Negative (NEGATIVE) 11/15/17 02:38 Urine Urobilinogen Normal (NORMAL) 11/15/17 02:38 Ur Leukocyte Esterase 3+ (NEGATIVE) 11/15/17 02:38 Urine RBC 3-5 /HPF (NONE SEEN) 11/15/17 02:38 Urine WBC 20-30 /HPF (NONE SEEN) 11/15/17 02:38 Ur Squamous Epith Cells Few /HPF (NEGATIVE) 11/15/17 02:38 Urine Bacteria Trace /HPF (NEGATIVE) 11/15/17 02:38 Ur Culture Indicated? Yes/culture set up 11/15/17 02:38
[2017-11-18] MEDS ORDERED: ZOLOFT PO ONE (19:46)
[2017-11-18] MEDS: AMBIEN PO SCH (20:54)
[2017-11-18] MEDS: SNACK - Diabetic Appropriate PO SCH (20:54)
[2017-11-18] MEDS: NORCO 10/325 TAB PO PRN (20:55)
[2017-11-18] MEDS: ZOLOFT PO SCH (20:55)
[2017-11-18] MEDS ORDERED: COLACE CAP 100 MG PO SCH (21:00)
--- NOTE | 2017-11-18 21:50 | PCM.PROG ---
Progress Note - Progress Note for Day of Date of Exam: 11/17/17 - Subjective Subjective: WAS ADMITTED FOR COPD EXACERBATION WITH ACUTE BRONCHITIS. TODAY, SHE CONTINUES WITH COMPLAINTS OF SHORTNESS OF BREATH AND A PRODUCTIVE COUGH. SHE REPORTS THAT SYMPTOMS HAVE SLIGHTLY IMPROVED SINCE YESTERDAY. ON EXAMINATION, BILATERAL LUNGS ARE NOTED WITH SCATTERED WHEEZING THROUGHOUT. HER VITALS TODAY ARE 98.0-106-20-96%-128/64. ABNORMAL LAB VALUES INCLUDE THE FOLLOWING: WBC 14.5, RBC 3.12, HGB 9.7, HCT 28.8, BUN 22, CREATININE 1.31, GLUCOSE 284, CALCIUM 8.1, AST 9, ALBUMIN 3.2. BLOOD, URINE, AND SPUTUM CULTURES ARE PENDING. SHE IS CURRENTLY RECEIVING IV ANTIBIOTICS, RESPIRATORY TREATMENTS, AND IV STEROIDS. WE WILL CONTINUE WITH CURRENT PLAN OF CARE TODAY. OTHERWISE, WE WILL FOLLOW UP WITH AM LABS AND CONTINUE TO MONITOR PATIENT. - Past Medical Family Social History Past Med/Fam/Surg Hx: No changes since H&P Allergies: Allergies No Known Drug Allergies [NKDA] Allergy (Verified 05/04/17 17:08) - Review of Systems ROS: No change since H&P - Vital Signs and I&O's Vital Signs: Temperature 98.6 F Pulse Rate [Left Brachial] 102 Pulse Rate [Right Radial] 74 Pulse Rate 81 Respiratory Rate 20 Blood Pressure [Left Arm] 150/75 Blood Pressure [Right Arm] 134/67 Blood Pressure 150/70 O2 Sat by Pulse Oximetry 95 Intake and Output: Intake & Output 11/16/17 11/17/17 11/18/17 11/19/17 11:59 11:59 11:59 11:59 Intake Total 4400 / 4400 4440 / 4440 3730 / 3730 1680 / 1680 Balance 4400 / 4400 4440 / 4440 3730 / 3730 1680 / 1680 - Physical Exam Oriented: Normal Eyes: Normal Ear: Normal Nose: Normal Throat: Normal Respiratory: Generalized, Wheezes Cardiovascular: Normal : Normal Auscultation: Bowel Sounds: Normal Tenderness: Normal Skin: Normal Musculoskeletal: Normal Psychiatric: Normal Mood Description: Calm Affect: Normal Speech Pattern: Clear, Appropriate - Laboratory and Diagnostics Result Diagrams: 11/18/17 05:30 11/18/17 05:30 Labs: 11/17/17 12:12 Sputum - Expectorated Sputum Sputum Culture - Final 11/17/17 12:12 Sputum - Expectorated Sputum - Final 11/15/17 02:37 Urine,Clean Catch Urine Culture - Final 11/15/17 02:28 Sputum - Expectorated Sputum Sputum Culture - Final 11/15/17 02:28 Sputum - Expectorated Sputum - Final 11/14/17 19:43 Blood Blood Culture - Preliminary Laboratory WBC 16.1 X10^3/uL (3.6-10.0) H 11/18/17 05:30 RBC 3.07 X10^6/uL (3.5-5.4) L 11/18/17 05:30 Hgb 9.6 g/dL (12.0-16.0) L 11/18/17 05:30 Hct 28.4 % (36.0-47.0) L 11/18/17 05:30 MCV 92.4 fL (80.0-100.0) 11/18/17 05:30 MCH 31.3 pg (27.0-34.0) 11/18/17 05:30 MCHC 33.9 g/dL (33.0-35.0) 11/18/17 05:30 RDW 15.3 % (11.6-16.5) 11/18/17 05:30 Plt Count 261 X10^3/uL (150.0-450.0) 11/18/17 05:30 Plt Count Comment Adequate (ADEQUATE) 11/18/17 05:30 MPV 9.8 fL (7.4-11.0) 11/18/17 05:30 Neut % (Auto) 87.1 % (42.0-75.0) H 11/18/17 05:30 Lymph % (Auto) 9.2 % (21.0-51.0) L 11/18/17 05:30 [place] % (Auto) 3.4 % (0.0-13.0) 11/18/17 05:30 Eos % (Auto) 0.0 % (0.9-2.9) L 11/18/17 05:30 Baso % (Auto) 0.3 % (0.2-1.0) 11/18/17 05:30 Neut # (Auto) 14.1 x10^3/uL (2.2-4.8) H 11/18/17 05:30 Lymph # (Auto) 1.5 X10^3/uL (1.3-2.9) 11/18/17 05:30 [place] # (Auto) 0.5 x10^3/uL (0.3-0.8) 11/18/17 05:30 Eos # (Auto) 0.0 x10^3/uL (0.0-0.2) 11/18/17 05:30 Baso # (Auto) 0.0 X10^3/uL (0.0-0.1) 11/18/17 05:30 Absolute Nucleated RBC 0.1 /100WBC 11/18/17 05:30 Total Counted 100 11/17/17 04:56 Neutrophils % (Manual) 86 % (39-76) H 11/17/17 04:56 Band Neutrophils % 7 % (0-10) 11/17/17 04:56 Lymphocytes % (Manual) 4 % (13-43) L 11/17/17 04:56 Monocytes % (Manual) 3 % (4-9) L 11/17/17 04:56 Plt Clumps, EDTA Rare 11/18/17 05:30 Plt Morphology Comment Normal (NORMAL) 11/18/17 05:30 RBC Morphology Normal (NORMAL) 11/18/17 05:30 Sample Site Lr 11/14/17 19:32 ABG pH 7.380 (7.35-7.45) 11/14/17 19:32 ABG pCO2 45.0 mmHg (35.0-45.0) 11/14/17 19:32 ABG pO2 68.0 mmHg (80.0-100.0) L 11/14/17 19:32 ABG HCO3 26.6 mmol/L (22-26) H 11/14/17 19:32 ABG O2 Saturation 93.0 % (90-100) 11/14/17 19:32 ABG Base Excess 1.1 mmol/L (-2.0-2.0) 11/14/17 19:32 Rip Test Pos 11/14/17 19:32 A-a Gradient 75.0 mmHg 11/14/17 19:32 FiO2 28.000 11/14/17 19:32 Blood Gas Comments Jeff well ae 11/14/17 19:32 Sodium 139 mmol/L (136-145) 11/18/17 05:30 Corrected Sodium 142 mmol/L (136-145) 11/18/17 05:30 Potassium 4.9 mmol/L (3.5-5.1) 11/18/17 05:30 Chloride 107 mmol/L (98-107) 11/18/17 05:30 Carbon Dioxide 21.4 mmol/L (21-32) 11/18/17 05:30 BUN 22 mg/dL (7-18) H 11/18/17 05:30 Creatinine 1.16 mg/dL (0.55-1.02) H 11/18/17 05:30 Est GFR (MDRD) Af Amer > 60 (>60) 11/18/17 05:30 Est GFR (MDRD) Non-Af 52 (>60) L 11/18/17 05:30 Glucose 227 mg/dL (65-99) H 11/18/17 05:30 POC Glucose (mg/dL) 124 mg/dL (65-99) H 11/18/17 20:14 Calcium 8.0 mg/dL (8.5-10.1) L 11/18/17 05:30 Corrected Calcium 8.7 mg/dL (8.5-10.1) 11/18/17 05:30 Total Bilirubin 0.20 mg/dL (0.2-1.0) 11/18/17 05:30 AST 15 Units/L (15-37) 11/18/17 05:30 ALT 27 Units/L (12-78) 11/18/17 05:30 Alkaline Phosphatase 48 Units/L (46-116) 11/18/17 05:30 Total Protein 6.3 g/dL (6.4-8.2) L 11/18/17 05:30 Albumin 3.1 g/dL (3.4-5.0) L 11/18/17 05:30 Globulin 3.2 g/dL (2.5-4.5) 11/18/17 05:30 Albumin/Globulin Ratio 1.0 Ratio (1.1-2.1) L 11/18/17 05:30 Specimen Type Clean catch urine 11/15/17 02:38 Urine Color Yellow (YELLOW) 11/15/17 02:38 Urine Appearance Cloudy (CLEAR) 11/15/17 02:38 Urine pH 6.0 (5.0 - 8.0) 11/15/17 02:38 Ur Specific [place] 1.005 (1.000-1.030) 11/15/17 02:38 Urine Protein 1+ (NEGATIVE) 11/15/17 02:38 Urine Glucose (UA) Negative (NEGATIVE) 11/15/17 02:38 Urine Ketones Negative (NEGATIVE) 11/15/17 02:38 Urine Occult Blood 1+ (NEGATIVE) 11/15/17 02:38 Urine Nitrite Negative (NEGATIVE) 11/15/17 02:38 Urine Bilirubin Negative (NEGATIVE) 11/15/17 02:38 Urine Urobilinogen Normal (NORMAL) 11/15/17 02:38 Ur Leukocyte Esterase 3+ (NEGATIVE) 11/15/17 02:38 Urine RBC 3-5 /HPF (NONE SEEN) 11/15/17 02:38 Urine WBC 20-30 /HPF (NONE SEEN) 11/15/17 02:38 Ur Squamous Epith Cells Few /HPF (NEGATIVE) 11/15/17 02:38 Urine Bacteria Trace /HPF (NEGATIVE) 11/15/17 02:38 Ur Culture Indicated? Yes/culture set up 11/15/17 02:38
--- NOTE | 2017-11-19 00:09 | PCM.PROG ---
Progress Note - Progress Note for Day of Date of Exam: 11/18/17 - Subjective Subjective: WAS ADMITTED FOR COPD EXACERBATION WITH ACUTE BRONCHITIS. TODAY, SHE CONTINUES WITH COMPLAINTS OF SHORTNESS OF BREATH AND A PRODUCTIVE COUGH. SHE REPORTS THAT SYMPTOMS HAVE SLIGHTLY IMPROVED SINCE YESTERDAY. ON EXAMINATION, BILATERAL LUNGS ARE NOTED WITH SCATTERED WHEEZING THROUGHOUT. HER VITALS TODAY ARE 97.7-79-20-95%NC-143/78. ABNORMAL LAB VALUES INCLUDE THE FOLLOWING: WBC 16.1, RBC 3.07, HGB 9.6, HCT 28.4, BUN 22, CREATININE 1.16, GLUCOSE 227, CALCIUM 8.0, TOTAL PROTEIN 6.3, ALBUMIN 3.1. TODAYS CHEST XRAY REVEALED: Continued normal transverse heart diameter with no acute pulmonary or pleural abnormality demonstrated. SHE IS CURRENTLY RECEIVING IV ANTIBIOTICS, RESPIRATORY TREATMENTS, AND IV STEROIDS. WE WILL CONTINUE WITH CURRENT PLAN OF CARE TODAY. OTHERWISE, WE WILL FOLLOW UP WITH AM LABS AND CONTINUE TO MONITOR PATIENT. - Past Medical Family Social History Past Med/Fam/Surg Hx: No changes since H&P Allergies: Allergies No Known Drug Allergies [NKDA] Allergy (Verified 05/04/17 17:08) - Review of Systems ROS: No change since H&P - Vital Signs and I&O's Vital Signs: Temperature 99.1 F Pulse Rate [Left Brachial] 78 Pulse Rate [Right Radial] 74 Pulse Rate 81 Respiratory Rate 21 Blood Pressure [Left Arm] 115/57 Blood Pressure [Right Arm] 134/67 Blood Pressure 150/70 O2 Sat by Pulse Oximetry 95 Intake and Output: Intake & Output 11/16/17 11/17/17 11/18/17 11/19/17 11:59 11:59 11:59 11:59 Intake Total 4400 / 4400 4440 / 4440 3730 / 3730 3060 / 3060 Balance 4400 / 4400 4440 / 4440 3730 / 3730 3060 / 3060 - Physical Exam Oriented: Normal Eyes: Normal Ear: Normal Nose: Normal Throat: Normal Respiratory: Generalized, Wheezes Cardiovascular: Normal : Normal Auscultation: Bowel Sounds: Normal Tenderness: Normal Skin: Normal Musculoskeletal: Normal Psychiatric: Normal Mood Description: Calm Affect: Normal Speech Pattern: Clear, Appropriate - Laboratory and Diagnostics Result Diagrams: 11/18/17 05:30 11/18/17 05:30 Labs: 11/17/17 12:12 Sputum - Expectorated Sputum Sputum Culture - Final 11/17/17 12:12 Sputum - Expectorated Sputum - Final 11/15/17 02:37 Urine,Clean Catch Urine Culture - Final 11/15/17 02:28 Sputum - Expectorated Sputum Sputum Culture - Final 11/15/17 02:28 Sputum - Expectorated Sputum - Final 11/14/17 19:43 Blood Blood Culture - Preliminary Laboratory WBC 16.1 X10^3/uL (3.6-10.0) H 11/18/17 05:30 RBC 3.07 X10^6/uL (3.5-5.4) L 11/18/17 05:30 Hgb 9.6 g/dL (12.0-16.0) L 11/18/17 05:30 Hct 28.4 % (36.0-47.0) L 11/18/17 05:30 MCV 92.4 fL (80.0-100.0) 11/18/17 05:30 MCH 31.3 pg (27.0-34.0) 11/18/17 05:30 MCHC 33.9 g/dL (33.0-35.0) 11/18/17 05:30 RDW 15.3 % (11.6-16.5) 11/18/17 05:30 Plt Count 261 X10^3/uL (150.0-450.0) 11/18/17 05:30 Plt Count Comment Adequate (ADEQUATE) 11/18/17 05:30 MPV 9.8 fL (7.4-11.0) 11/18/17 05:30 Neut % (Auto) 87.1 % (42.0-75.0) H 11/18/17 05:30 Lymph % (Auto) 9.2 % (21.0-51.0) L 11/18/17 05:30 [place] % (Auto) 3.4 % (0.0-13.0) 11/18/17 05:30 Eos % (Auto) 0.0 % (0.9-2.9) L 11/18/17 05:30 Baso % (Auto) 0.3 % (0.2-1.0) 11/18/17 05:30 Neut # (Auto) 14.1 x10^3/uL (2.2-4.8) H 11/18/17 05:30 Lymph # (Auto) 1.5 X10^3/uL (1.3-2.9) 11/18/17 05:30 [place] # (Auto) 0.5 x10^3/uL (0.3-0.8) 11/18/17 05:30 Eos # (Auto) 0.0 x10^3/uL (0.0-0.2) 11/18/17 05:30 Baso # (Auto) 0.0 X10^3/uL (0.0-0.1) 11/18/17 05:30 Absolute Nucleated RBC 0.1 /100WBC 11/18/17 05:30 Total Counted 100 11/17/17 04:56 Neutrophils % (Manual) 86 % (39-76) H 11/17/17 04:56 Band Neutrophils % 7 % (0-10) 11/17/17 04:56 Lymphocytes % (Manual) 4 % (13-43) L 11/17/17 04:56 Monocytes % (Manual) 3 % (4-9) L 11/17/17 04:56 Plt Clumps, EDTA Rare 11/18/17 05:30 Plt Morphology Comment Normal (NORMAL) 11/18/17 05:30 RBC Morphology Normal (NORMAL) 11/18/17 05:30 Sample Site Lr 11/14/17 19:32 ABG pH 7.380 (7.35-7.45) 11/14/17 19:32 ABG pCO2 45.0 mmHg (35.0-45.0) 11/14/17 19:32 ABG pO2 68.0 mmHg (80.0-100.0) L 11/14/17 19:32 ABG HCO3 26.6 mmol/L (22-26) H 11/14/17 19:32 ABG O2 Saturation 93.0 % (90-100) 11/14/17 19:32 ABG Base Excess 1.1 mmol/L (-2.0-2.0) 11/14/17 19:32 Rip Test Pos 11/14/17 19:32 A-a Gradient 75.0 mmHg 11/14/17 19:32 FiO2 28.000 11/14/17 19:32 Blood Gas Comments Jeff well ae 11/14/17 19:32 Sodium 139 mmol/L (136-145) 11/18/17 05:30 Corrected Sodium 142 mmol/L (136-145) 11/18/17 05:30 Potassium 4.9 mmol/L (3.5-5.1) 11/18/17 05:30 Chloride 107 mmol/L (98-107) 11/18/17 05:30 Carbon Dioxide 21.4 mmol/L (21-32) 11/18/17 05:30 BUN 22 mg/dL (7-18) H 11/18/17 05:30 Creatinine 1.16 mg/dL (0.55-1.02) H 11/18/17 05:30 Est GFR (MDRD) Af Amer > 60 (>60) 11/18/17 05:30 Est GFR (MDRD) Non-Af 52 (>60) L 11/18/17 05:30 Glucose 227 mg/dL (65-99) H 11/18/17 05:30 POC Glucose (mg/dL) 124 mg/dL (65-99) H 11/18/17 20:14 Calcium 8.0 mg/dL (8.5-10.1) L 11/18/17 05:30 Corrected Calcium 8.7 mg/dL (8.5-10.1) 11/18/17 05:30 Total Bilirubin 0.20 mg/dL (0.2-1.0) 11/18/17 05:30 AST 15 Units/L (15-37) 11/18/17 05:30 ALT 27 Units/L (12-78) 11/18/17 05:30 Alkaline Phosphatase 48 Units/L (46-116) 11/18/17 05:30 Total Protein 6.3 g/dL (6.4-8.2) L 11/18/17 05:30 Albumin 3.1 g/dL (3.4-5.0) L 11/18/17 05:30 Globulin 3.2 g/dL (2.5-4.5) 11/18/17 05:30 Albumin/Globulin Ratio 1.0 Ratio (1.1-2.1) L 11/18/17 05:30 Specimen Type Clean catch urine 11/15/17 02:38 Urine Color Yellow (YELLOW) 11/15/17 02:38 Urine Appearance Cloudy (CLEAR) 11/15/17 02:38 Urine pH 6.0 (5.0 - 8.0) 11/15/17 02:38 Ur Specific [place] 1.005 (1.000-1.030) 11/15/17 02:38 Urine Protein 1+ (NEGATIVE) 11/15/17 02:38 Urine Glucose (UA) Negative (NEGATIVE) 11/15/17 02:38 Urine Ketones Negative (NEGATIVE) 11/15/17 02:38 Urine Occult Blood 1+ (NEGATIVE) 11/15/17 02:38 Urine Nitrite Negative (NEGATIVE) 11/15/17 02:38 Urine Bilirubin Negative (NEGATIVE) 11/15/17 02:38 Urine Urobilinogen Normal (NORMAL) 11/15/17 02:38 Ur Leukocyte Esterase 3+ (NEGATIVE) 11/15/17 02:38 Urine RBC 3-5 /HPF (NONE SEEN) 11/15/17 02:38 Urine WBC 20-30 /HPF (NONE SEEN) 11/15/17 02:38 Ur Squamous Epith Cells Few /HPF (NEGATIVE) 11/15/17 02:38 Urine Bacteria Trace /HPF (NEGATIVE) 11/15/17 02:38 Ur Culture Indicated? Yes/culture set up 11/15/17 02:38
[2017-11-19] MEDS: DUONEB 0.5 MG/3 MG NEB SCH ×3 (00:27→09:34)
[2017-11-19 05:16] LABS: BASOPHILS % (AUTO) 0.2 % (0.2-1.0); EOSINOPHILS % (AUTO) 0.5 % (0.9-2.9); HEMOGLOBIN 9.6 g/dL (12.0-16.0); LYMPHOCYTES # (AUTO) 2.4 X10^3/uL (1.3-2.9); LYMPHOCYTES % (AUTO) 29.1 % (21.0-51.0); MEAN CORPUSCULAR HEMOGLOBIN 31.6 pg (27.0-34.0); MEAN CORPUSCULAR HGB CONC 34.2 g/dL (33.0-35.0); MEAN CORPUSCULAR VOLUME 92.6 fL (80.0-100.0); MEAN PLATELET VOLUME 8.9 fL (7.4-11.0); MONOCYTES # (AUTO) 0.5 x10^3/uL (0.3-0.8); MONOCYTES % (AUTO) 6.5 % (0.0-13.0); NEUTROPHILS # (AUTO) 5.3 x10^3/uL (2.2-4.8); NEUTROPHILS % (AUTO) 63.7 % (42.0-75.0); PLATELET COUNT 236 X10^3/uL (150.0-450.0); RED BLOOD COUNT 3.03 X10^6/uL (3.5-5.4); RED CELL DISTRIBUTION WIDTH 15.1 % (11.6-16.5); WHITE BLOOD COUNT 8.3 X10^3/uL (3.6-10.0)
[2017-11-19] MEDS: FORTAZ or TAZICEF VIAL INJ 1 G in NS 100 ML IV + SPIKE MINIBAG* 100 ML IV SCH (05:20)
[2017-11-19] MEDS: NEURONTIN CAP 300 MG PO SCH (05:21)
[2017-11-19 05:34] LABS: ALANINE AMINOTRANSFERASE 23 Units/L (12-78); ALBUMIN 2.9 g/dL (3.4-5.0); ALKALINE PHOSPHATASE 42 Units/L (46-116); ASPARTATE AMINO TRANSFERASE 9 Units/L (15-37); BLOOD UREA NITROGEN 21 mg/dL (7-18); CARBON DIOXIDE 24.3 mmol/L (21-32); CHLORIDE 111 mmol/L (98-107); COR CA(FOR HYPOALB) 8.9 mg/dL (8.5-10.1); CREATININE 1.28 mg/dL (0.55-1.02); SODIUM 143 mmol/L (136-145); TOTAL PROTEIN 5.8 g/dL (6.4-8.2); eGFR NON BLACK RACES 46 (>60)
[2017-11-19] MEDS: AMARYL TAB 4 MG PO SCH (06:11)
--- NOTE | 2017-11-19 06:37 | RAD ---
Examination: Portable AP chest History: SOB, bronchitis Comparison reference 11/18/2017 Findings: Continued normal heart size and configuration with essentially clear lungs and pleural spac es. Impression: No interval change or acute abnormality demonstrated. Reported By:
[2017-11-19 07:53] VITALS: BP 128/62
[2017-11-19] MEDS: TRICOR TAB 160 MG PO SCH (08:25)
[2017-11-19] MEDS: ZESTRIL TAB 5 MG PO SCH (08:25)
[2017-11-19] MEDS: LIPITOR TAB 40 MG PO SCH (08:25)
[2017-11-19] MEDS: BUSPAR PO SCH (08:25)
[2017-11-19] MEDS: LOPRESSOR TAB 50 MG PO SCH (08:26)
[2017-11-19] MEDS: PROTONIX TAB 40 MG PO SCH (08:26)
[2017-11-19] MEDS: MICRO K EXTEN CAP 10 MEQ PO SCH (08:26)
[2017-11-19] MEDS: SINGULAIR TAB 10 MG PO SCH (08:27)
[2017-11-19] MEDS: ZyrTEC TAB 10 MG PO SCH (08:27)
[2017-11-19] MEDS: ZITHROMAX INJ 500 MG VIAL 500 MG in NS 250 ML IV 250 ML IV SCH (08:27)
[2017-11-19] MEDS: LOVENOX INJ 40 MG SYR SC SCH (08:28)
[2017-11-19] MEDS: MILK OF MAGNESIA PO SCH (08:30)
--- NOTE | 2017-11-29 14:45 | DR.CARTERD ---
- Discharge Summary for: Discharge Summary for Date of:: 11/19/17 - Admission Date Date of Admission: 11/14/17 - Admission Diagnoses Admission Diagnosis: (1) COPD exacerbation (2) Shortness of breath (3) Acute bronchitis with COPD (4) Diabetes mellitus type 2 (5) Essential hypertension - Discharge Date Discharge Date: 11/19/17 - Discharge Diagnoses Discharge Diagnosis: (1) COPD exacerbation (2) Shortness of breath (3) Acute bronchitis with COPD (4) Diabetes mellitus type 2 (5) Essential hypertension - Hospital Course Hospital Course: Day one, Ms. Mohamud presented to the [facility] as a direct admit from the services of Dr. Ferrell. Patient reported going to the MDs office prior to arrival with complaints of a sinus headache, drainage going to lungs, fever with chills, nasal congestion, sore throat, fatigue, and decreased oral intake. She reported she was administering breathing treatments, Robitussin, and essential oils at home but they were not successful with improvement of symptoms. Dr. Coon office reported upper respiratory congestion for 1 week , productive cough with clear sputum, wheezing on auscultation, shortness of breath with exertion. A chest x-ray was obtained on admission to the hospital and revealed no acute chest process. Labs were drawn and revealed a HCT 35.8, BUN 30, Creatinine 1.99, Glucose 173. An ABG was collected and results were po2 68.0, hco3 26.6. Urinalysis revealed: Appearance Cloudy, Protein 1+, Occult Blood 1+, Leukocyte Esterase 3+, RBC 3-5, WBC 20-30, Squamous Epith Cells Few, Bacteria Trace, Culture set-up. Blood and sputum cultures were obtained. EKG showed sinus rhythm with a heart rate of 88. Medical HX: CAD, Sleep Apnea, GERD , Constipation, Diarrhea, UTI, Endometriosis, DM II, Anxiety, Depression, PTSD, Cholecystectomy, Hysterectomy, Ortho Surgery. Patient started on Duoneb 0.5 MG/ 3 MG Q4H, Azithromycin 500 MG IV Daily, Ceftazidime 1 GM IV Q8H, Solu-medrol 80 MG IVP Q8H, and NS 1000 ML IV @ 75 MLS/HR. Day two, Patient noted with continued shortness of breath. Patient noted with continued cough, nasal congestion, and dyspnea. On auscultation of lung amado patient noted with wheezing throughout. Patient remained on supplemental oxygen at 2L/min via nasal cannula. Patient continued with IV fluids, IV antibiotics, and IV steroids. Day three, Ms. Mohamud continued treatment for COPD exacerbation with acute bronchitis. She continued with complaints of shortness of breath and a productive cough. She reported that sputum was thick and yellow in color. On examination, lungs were noted with scattered wheezing throughout. Vitals were: 98.0-107-20-97%-124/71. Abnormal labs were: Wbc 13.9, rbc 3.27, hgb 10.4, hct 30.1, bun 22, ast 13, creatinine 1.40, glucose 358, calcium 8.3, albumin 3.2. We continued IV fluids, IV antibiotics, IV steroids, and respiratory treatments. We continued to monitor. Day four, Ms. Mohamud continued with complaints of shortness of breath and a productive cough. She reported that symptoms had improved slightly. On examination, lungs were noted with scattered wheezing throughout. Vitals were: 98.0-106-20-96%-128/64. Abnormal labs were: Wbc 14.5, rbc 3.12, hgb 9.7, hct 28.8, bun 22, ast 9, creatinine 1.31, glucose 284, albumin 3.2. We continued IV fluids, IV antibiotics, IV steroids, and respiratory treatments. We continued to monitor. Day five, Patient continued with complaints of shortness of breath and a productive cough. She continued to report improvement in symptoms. On examination, lungs were noted with scattered wheezing throughout. Vitals were: 97.7-79-20-95%-143/78. Abnormal labs were: Wbc 16.1, rbc 3.07, hgb 9.6, hct 28.4 , bun 22, creatinine 1.16, glucose 227, calcium 8.0, total protein 6.3, albumin 3.1. Chest xray reported continued normal transverse heart diameter with no acute pulmonary or pleural abnormality demonstrated. We continued IV fluids, IV antibiotics, IV steroids, and respiratory treatments. We continued to monitor. Day six, Patient reported she was feeling better. She reported significant improvement in symptoms. She denied shortness of breath and reported cough was intermittent and sputum thin and easy to expel. Final blood, sputum, and urine cultures were negative for growth. On auscultation, lungs were noted with scattered rhonchi throughout. Vital signs stable. Labs wnl. We planned for discharge. Instructions for medications and follow up were discussed with patient and family, both voiced understanding. Patient discharged home in stable condition with family. - Discharge Medications Discharge Medications: Home Medication List zolpidem [Ambien] 10 mg PO HS 11/14/17 [History] amoxicillin-pot clavulanate [Augmentin] 1 tab PO BID #20 tab 11/19/17 [Rx] ipratropium-albuterol 1 ea NEB TID #50 ml 11/19/17 [Rx] methylprednisolone [Medrol (Urban)] See Label Instructions .ROUTE .COMPLEX #1 ea 11/19/17 [Rx] Prescriptions: amoxicillin-pot clavulanate [Augmentin] Ronald Elaine ipratropium-albuterol Ronald Elaine methylprednisolone [Medrol (Urban)] Ronald Elaine Home medications Fenofibrate [Fenofibrate 160 mg] 1 tab PO DAILY 04/19/16 Lisinopril 5 mg PO DAILY 04/19/16 atorvastatin [Lipitor] 40 tab PO DAILY 04/19/16 buspirone 1 tab PO BID 04/19/16 furosemide 1 tab PO DAILY PRN 04/19/16 gabapentin 2 cap PO TID 04/19/16 glimepiride [Amaryl] 2 tab PO DAILY 04/19/16 hydrocodone-acetaminophen 0.5 - 1 tab PO Q8H PRN 04/19/16 levocetirizine 1 tab PO DAILY 04/19/16 metformin 1,000 mg PO BID 04/19/16 metoprolol tartrate 1 tab PO BID 04/19/16 montelukast 1 tab PO DAILY 04/19/16 omeprazole 1 cap PO DAILY 04/19/16 potassium chloride [K-Tab] 1 tab PO DAILY 04/19/16 tizanidine [Zanaflex] 2 tab PO Q8H PRN 04/19/16 alprazolam 1 tab PO BID PRN 05/04/17 pantoprazole 1 tab PO DAILY 05/04/17 sertraline 1 tab PO HS 05/04/17 - Discharge Disposition Discharge Disposition: Patient is to follow up with Dr. Ferrell in one week.
== END 2017-11-19 10:50 | disposition home or self-care (01) | DRG 202 ==
LOC: MED/SURG
PROVIDERS: ADMIT Internal Medicine; ATTEND Internal Medicine
DX: J44.0 Chronic obstructive pulmonary disease with (acute) lower respiratory infection; K21.9 Gastro-esophageal reflux disease without esophagitis; N39.0 Urinary tract infection, site not specified; J20.8 Acute bronchitis due to other specified organisms; N18.9 Chronic kidney disease, unspecified; F41.8 Other specified anxiety disorders; N17.8 Other acute kidney failure; I12.9 Hypertensive chronic kidney disease with stage 1 through stage 4 chronic kidney disease, or unspecified chronic kidney disease; J44.1 Chronic obstructive pulmonary disease with (acute) exacerbation; E11.65 Type 2 diabetes mellitus with hyperglycemia; R06.02 Shortness of breath; E78.2 Mixed hyperlipidemia
CPT/HCPCS: 36415; 36600; 71010; 71020; 71045; 71046; 80048; 80053; 81001; 82803; 82947; 85025; 87040; 87070; 87086; 87205; 93005; 93010; 94640; 94760; A4216; A4222; G0378; J0456; J0713; J1650; J1815; J2920; J7030; J7050; J7620

== ENCOUNTER 2018-12-17 17:52 | Inpatient (IN) ==
[~2018-12-17 17:52] MED LIST: ROCEPHIN VIAL 1 GRAM ONE
--- NOTE | 2018-12-17 18:15 | DR.SOBA ---
HPI Time Seen Time Seen by Provider: 12/17/18 18:15 HPI Comment HPI Comment: 58 yo CF w/ prev hx of non home o2 dependent copd, ckd, MOE, ptsd presents w/ 3-4 day hx of increasing SOB/ wheezing along w/ productive cough w/ white sputum. Clear rhinorrhea+ No f/c. Does complain of some parasternal disc omfort present only while coughing. No other CP. Denies f/c, n/v/d, diaphoresis. Seen by pmd 2 weeks ago for similar sx's. Placed on Medrol dose pack however sx's recurred and came to ER. PMH PMH Past Surgical History: Yes Family History Family Medical History: Diabetes Mellitus, Cancer, [place], Coronary Artery Disease and Hypertension Social History Do you use any recreational Drugs:: No ROS Review of Systems Constitutional: No Symptoms Reported Eyes: No Symptoms Reported ENTM: See HPI and Nose Congestion; negative Mouth Pain and Throat Pain Respiratoy: Productive Cough, Short of Breath and Wheezing; negative Hemoptysis Cardiovascular: See HPI and Chest Pain; negative Edema, Palpitations, Syncope and Cyanosis Gastrointestinal/Abdominal: No Symptoms Reported Genitourinary: No Symptoms Reported Neurological: No Symptoms Reported Musculoskeletal: No Symptoms Reported Integumentary: No Symptoms Reported Hematologic/Lymphatic: No Symptoms Reported Endocrine: No Symptoms Reported Psychiatric: No Symptoms Reported All Other Systems: Reviewed and Negative PE Vital Signs Vitals: Temperature 98.1 F Pulse Rate 101 Respiratory Rate 22 Blood Pressure [Left Arm] 128/62 Blood Pressure [Right Arm] 134/67 Blood Pressure 141/90 O2 Sat by Pulse Oximetry 91 General Limitations: No Limitations General Appearance: Alert and In Distress (mild respiratory distress ) Head Head Exam: Normal Inspection Eyes Eye exam: Normal Appearance ENT ENT Exam: Normal Exam Neck Neck Exam: Normal Inspection Chest Chest Inspection: Normal Inspection Respiratory Respiratory Exam: Prolonged Expiratory Phase and Respiratory Distress (mild RD, diff end exp wheezing ) Respiratory Exam: Bilateral: Clear to Auscultation Cardiovascular Cardiovascular Exam: Regular Rate and Normal Rhythm Abdominal Exam Abdominal Exam: Normal Inspection, Normal Bowel Sounds and Soft Extremities Extremities Exam: Normal Inspection Back Back Exam: Normal Inspection Neurologic Neurological Exam: Alert and Oriented X3 Psychiatric Psychiatric Exam: Normal Affect and Normal Mood Skin Skin Exam: Warm, Dry, Intact and Normal Color Other Exam Other Exam: obese body habitus. MDM Additional Information Obtained Additional Information Obtained From: Old Records and Family Differential Diagnosis Differential Diagnosis: Anxiety, Asthma, Bronchitis, CHF, COPD, Mycardial Infarction, Panic Attack, Pneumonia, Pulmonary embolism and Respiratory Failure COURSE Treatment Treatment: 58 yo f w/ known copd, non home o2 dependent at home presents w/ SOB. wheezing along with productive cough in setting of recent episode of acute bronchitis dx'd 2 weeks ago and treated w/ Medrol dose pack by pcp. Returns w/ recurrent sx's. On arrival to ED in mild respiratory distress w/ noted end expiratory wheezing. 88% on RA pulse ox. Placed on supplemental o2 and given duonebs. Loaded with solumedrol iv. Respiratory distress improved. currently 90% on 3L NC. Due to failed outpatient therapy for copd exacerbation as well as new onset hypoxia, will admit for copd exacerbation. Rocephin initiated to empirically treat bronchitis. QTC 500, will defer on macrolides/ fluroquinilones at this time. Consultation Consultation Comments: Discussed all details of case with Dr Chester whom agrees to admit the patient. Education/Counseling Education/Counseling: Patient, Family and Education Educated On: Treatment, Diagnosis and Needs for Follow Up ROR Labs Reviewed Result Diagrams: 12/17/18 18:39 12/17/18 18:39 Laboratory: WBC 15.1 X10^3/uL (3.6-10.0) H 12/17/18 18:39 RBC 3.89 X10^6/uL (3.5-5.4) 12/17/18 18:39 Hgb 12.2 g/dL (12.0-16.0) 12/17/18 18:39 Hct 37.1 % (36.0-47.0) 12/17/18 18:39 MCV 95.4 fL (80.0-100.0) 12/17/18 18:39 MCH 31.3 pg (27.0-34.0) 12/17/18 18:39 MCHC 32.8 g/dL (33.0-35.0) L 12/17/18 18:39 RDW 15.1 % (11.6-16.5) 12/17/18 18:39 Plt Count 340 X10^3/uL (150.0-450.0) 12/17/18 18:39 MPV 9.6 fL (7.4-11.0) 12/17/18 18:39 Neut % (Auto) 87.7 % (42.0-75.0) H 12/17/18 18:39 Lymph % (Auto) 6.8 % (21.0-51.0) L 12/17/18 18:39 [place] % (Auto) 4.6 % (0.0-13.0) 12/17/18 18:39 Eos % (Auto) 0.2 % (0.9-2.9) L 12/17/18 18:39 Baso % (Auto) 0.7 % (0.2-1.0) 12/17/18 18:39 Neut # (Auto) 13.2 x10^3/uL (2.2-4.8) H 12/17/18 18:39 Lymph # (Auto) 1.0 X10^3/uL (1.3-2.9) L 12/17/18 18:39 [place] # (Auto) 0.7 x10^3/uL (0.3-0.8) 12/17/18 18:39 Eos # (Auto) 0.0 x10^3/uL (0.0-0.2) 12/17/18 18:39 Baso # (Auto) 0.1 X10^3/uL (0.0-0.1) 12/17/18 18:39 Absolute Nucleated RBC 0.0 /100WBC 12/17/18 18:39 Sodium 141 mmol/L (136-145) 12/17/18 18:39 Corrected Sodium 144 mmol/L (136-145) 12/17/18 18:39 Potassium 3.7 mmol/L (3.5-5.1) 12/17/18 18:39 Chloride 102 mmol/L (98-107) 12/17/18 18:39 Carbon Dioxide 26.4 mmol/L (21-32) 12/17/18 18:39 BUN 9 mg/dL (7-18) 12/17/18 18:39 Creatinine 1.51 mg/dL (0.55-1.02) H 12/17/18 18:39 Est GFR (MDRD) Af Amer 46 (>60) L 12/17/18 18:39 Est GFR (MDRD) Non-Af 38 (>60) L 12/17/18 18:39 Glucose 225 mg/dL (65-99) H 12/17/18 18:39 Calcium 8.7 mg/dL (8.5-10.1) 12/17/18 18:39 Troponin I < 0.02 ng/mL (0-1.5) 12/17/18 18:39 XRAY XRAY Interpreted by: Radiologist XRAY Findings: mild intersitcial edema no pna EKG Rate: 99 Rhythm: NSR (prolonged qtc 505, low voltage qrs, t wave flattening I/ avr/ avl, no st elevation ) Opioid Opioid Risk Tool Age (Franco box if 16-45): No History of Preadolescent Sexual Abuse: No Psychological Disease: PTSD Total: 0 Total Score Risk Category: Low Risk Copyright: Mack GOULD predicting aberrant behaviors ADDITIONAL NOTES Additional Notes Additional Notes: Admit to medicine floor on copd protocol.
[2018-12-17] MEDS ORDERED: DUONEB 0.5 MG/3 MG ONE (18:36)
[2018-12-17 18:45] LABS: BASOPHILS # (AUTO) 0.1 X10^3/uL (0.0-0.1); BASOPHILS % (AUTO) 0.7 % (0.2-1.0); EOSINOPHILS % (AUTO) 0.2 % (0.9-2.9); HEMATOCRIT 37.1 % (36.0-47.0); HEMOGLOBIN 12.2 g/dL (12.0-16.0); LYMPHOCYTES % (AUTO) 6.8 % (21.0-51.0); MEAN CORPUSCULAR HEMOGLOBIN 31.3 pg (27.0-34.0); MEAN CORPUSCULAR HGB CONC 32.8 g/dL (33.0-35.0); MEAN CORPUSCULAR VOLUME 95.4 fL (80.0-100.0); MEAN PLATELET VOLUME 9.6 fL (7.4-11.0); MONOCYTES # (AUTO) 0.7 x10^3/uL (0.3-0.8); MONOCYTES % (AUTO) 4.6 % (0.0-13.0); NEUTROPHILS # (AUTO) 13.2 x10^3/uL (2.2-4.8); NEUTROPHILS % (AUTO) 87.7 % (42.0-75.0); PLATELET COUNT 340 X10^3/uL (150.0-450.0); RED BLOOD COUNT 3.89 X10^6/uL (3.5-5.4); RED CELL DISTRIBUTION WIDTH 15.1 % (11.6-16.5); WHITE BLOOD COUNT 15.1 X10^3/uL (3.6-10.0)
--- NOTE | 2018-12-17 18:45 | RAD ---
History: Pain and shortness of breath Exam: Chest x-ray Comparison: 11/19/2017 Technique: PA and lateral Findings: The heart is normal. The pulmonary vessels are engorged ill-defined centrally. There are mild increased interstitial markings throughout which are more prominent along the lung bases and have increased since the prior study. No consolidation or effusion is seen. IMPRESSION: Mild pulmonary interstitial edema. Reported By:
[2018-12-17] MEDS ORDERED: SOLU-Medrol 125 MG VIAL IVP ONE (18:56)
[2018-12-17] MEDS ORDERED: ROCEPHIN VIAL 1 GRAM IVP ONE (18:57)
[2018-12-17] MEDS ORDERED: SOLU-Medrol 125 MG VIAL ONE (18:59)
[2018-12-17 19:02] LABS: BLOOD UREA NITROGEN 9 mg/dL (7-18); CALCIUM 8.7 mg/dL (8.5-10.1); CARBON DIOXIDE 26.4 mmol/L (21-32); CHLORIDE 102 mmol/L (98-107); COR NA(FOR HYPERGLY) 144 mmol/L (136-145); CREATININE 1.51 mg/dL (0.55-1.02); SODIUM 141 mmol/L (136-145); TROPONIN I < 0.02 ng/mL (0-1.5); eGFR NON BLACK RACES 38 (>60)
[2018-12-17] MEDS ORDERED: TYLENOL 500 MG TAB EXTRA STRENGTH PO PRN (19:49)
[2018-12-17] MEDS ORDERED: TYLENOL 325 MG TAB PO PRN ×2 (20:04)
[2018-12-17] MEDS ORDERED: MILK OF MAGNESIA PO PRN (20:04)
[2018-12-17] MEDS ORDERED: ROBITUSSIN DM PO PRN (20:04)
[2018-12-17] MEDS ORDERED: ZOFRAN TAB 4 MG SL PRN (20:04)
[2018-12-17] MEDS ORDERED: HumuLIN R SUBCUT PRN (20:05)
[2018-12-17] MEDS ORDERED: ULTRAM PO PRN (20:15)
[2018-12-17] MEDS ORDERED: DUONEB 0.5 MG/3 MG NEB SCH (21:00)
[2018-12-17] MEDS: NICOTINE PATCH TD SCH (21:09)
[2018-12-17] MEDS: CHECK PATCH XX SCH (21:09)
[2018-12-17] MEDS: HumuLIN R SUBCUT PRN (21:19)
[2018-12-17 22:25] VITALS: BMI 33.9
[2018-12-18] MEDS ORDERED: LASIX PO PRN (00:07)
[2018-12-18] MEDS ORDERED: ZANAFLEX PO PRN (00:11)
[2018-12-18] MEDS ORDERED: PATIENT'S HOME MEDICATION PO PRN (00:11)
[2018-12-18] MEDS ORDERED: LOPRESSOR TAB 50 MG ONE (03:14)
[2018-12-18] MEDS ORDERED: ZESTRIL TAB 5 MG ONE (03:14)
[2018-12-18] MEDS: LOPRESSOR TAB 50 MG PO SCH ×2 (03:18→20:31)
[2018-12-18] MEDS: ZESTRIL TAB 5 MG PO SCH (03:18)
[2018-12-18] MEDS ORDERED: GLUCOPHAGE ONE ×2 (05:01→17:07)
[2018-12-18] MEDS: NEURONTIN TAB 600 MG PO SCH ×3 (05:31→21:17)
[2018-12-18] MEDS: XANAX PO SCH ×4 (05:31→20:32)
[2018-12-18] MEDS: HumuLIN R SUBCUT PRN ×3 (05:35→20:33)
[2018-12-18 05:39] LABS: BASOPHILS # (AUTO) 0.1 X10^3/uL (0.0-0.1); BASOPHILS % (AUTO) 0.8 % (0.2-1.0); HEMATOCRIT 37.8 % (36.0-47.0); HEMOGLOBIN 12.2 g/dL (12.0-16.0); LYMPHOCYTES # (AUTO) 0.5 X10^3/uL (1.3-2.9); LYMPHOCYTES % (AUTO) 6.5 % (21.0-51.0); MEAN CORPUSCULAR HEMOGLOBIN 30.8 pg (27.0-34.0); MEAN CORPUSCULAR HGB CONC 32.2 g/dL (33.0-35.0); MEAN CORPUSCULAR VOLUME 95.5 fL (80.0-100.0); MEAN PLATELET VOLUME 10.3 fL (7.4-11.0); MONOCYTES # (AUTO) 0.3 x10^3/uL (0.3-0.8); MONOCYTES % (AUTO) 3.1 % (0.0-13.0); NEUTROPHILS # (AUTO) 7.4 x10^3/uL (2.2-4.8); NEUTROPHILS % (AUTO) 89.6 % (42.0-75.0); PLATELET COUNT 270 X10^3/uL (150.0-450.0); RED BLOOD COUNT 3.96 X10^6/uL (3.5-5.4); RED CELL DISTRIBUTION WIDTH 15.7 % (11.6-16.5); WHITE BLOOD COUNT 8.3 X10^3/uL (3.6-10.0)
[2018-12-18 05:53] LABS: ALANINE AMINOTRANSFERASE 16 Units/L (12-78); ALBUMIN 3.8 g/dL (3.4-5.0); ALKALINE PHOSPHATASE 45 Units/L (46-116); ASPARTATE AMINO TRANSFERASE 18 Units/L (15-37); BLOOD UREA NITROGEN 12 mg/dL (7-18); CALCIUM 8.6 mg/dL (8.5-10.1); CARBON DIOXIDE 25.9 mmol/L (21-32); CHLORIDE 100 mmol/L (98-107); COR NA(FOR HYPERGLY) 144 mmol/L (136-145); CREATININE 1.49 mg/dL (0.55-1.02); SODIUM 140 mmol/L (136-145); TOTAL PROTEIN 7.8 g/dL (6.4-8.2); eGFR NON BLACK RACES 38 (>60)
[2018-12-18] MEDS: DUONEB 0.5 MG/3 MG NEB SCH ×3 (05:56→20:30)
[2018-12-18] MEDS ORDERED: PROVENTIL NEB TX 0.083% 2.5MG/ 3ML NEB SCH (06:00)
[2018-12-18] MEDS: TRICOR TAB 160 MG PO SCH (06:03)
[2018-12-18] MEDS: GLUCOPHAGE PO SCH ×2 (06:03→17:07)
[2018-12-18] MEDS: AMARYL TAB 4 MG PO SCH (06:03)
[2018-12-18] MEDS ORDERED: ZOFRAN INJ 4 MG VIAL IVP PRN (07:20)
[2018-12-18] MEDS ORDERED: ZOFRAN INJ 4 MG VIAL ONE (07:21)
[2018-12-18 08:46] LABS: ABG ALLEN TEST POS; ABG HCO3 26.5 mmol/L (22-26)
[2018-12-18] MEDS ORDERED: ROCEPHIN VIAL 1 GRAM IVP SCH (09:00)
[2018-12-18] MEDS ORDERED: ZESTRIL TAB 5 MG PO SCH (09:00)
[2018-12-18] MEDS ORDERED: LOPRESSOR TAB 50 MG PO SCH (09:00)
[2018-12-18] MEDS ORDERED: VSL#3 PO SCH (09:00)
[2018-12-18] MEDS ORDERED: NICOTINE PATCH TD SCH (09:00)
[2018-12-18] MEDS ORDERED: SOLU-Medrol 40 MG VIAL IVP SCH (09:00)
[2018-12-18] MEDS: BUSPAR PO SCH ×2 (09:25→20:31)
[2018-12-18] MEDS: CHECK PATCH XX SCH ×2 (09:25→20:31)
[2018-12-18] MEDS: PROzac PO SCH (09:26)
[2018-12-18] MEDS: PROTONIX TAB 40 MG PO SCH (09:26)
[2018-12-18] MEDS: LIPITOR TAB 40 MG PO SCH (09:26)
[2018-12-18] MEDS: NICOTINE PATCH TD SCH (09:26)
[2018-12-18] MEDS: MICRO K EXTEN CAP 10 MEQ PO SCH (09:26)
[2018-12-18 09:30] LABS: CKMB % 1.5 % (<4); CREATINE KINASE MB 1.4 ng/mL (0-4.0); TROPONIN I 0.04 ng/mL (0-1.5)
[2018-12-18] MEDS: SOLU-Medrol 40 MG VIAL IVP SCH ×3 (10:11→21:17)
[2018-12-18] MEDS: NORCO 10/325 TAB PO PRN (11:36)
[2018-12-18 14:41] LABS: CKMB % 1.4 % (<4); CREATINE KINASE MB 1.4 ng/mL (0-4.0); TROPONIN I 0.03 ng/mL (0-1.5)
--- NOTE | 2018-12-18 18:07 | DR.H&P ---
H&P - History & Physical for Day of: H&P Date: 12/17/18 - Chief Complaint Chief Complaint: SOB - History of Present Illness History of Present Illness: 58 yo CF w/ prev hx of non home o2 dependent copd, ckd, MOE, ptsd presents w/ 3-4 day hx of increasing SOB/ wheezing along w/ productive cough w/ white sputum. Clear rhinorrhea+ No f/c. Does complain of some parasternal discomfort present only while coughing. No other CP. Denies f/c, n/v/d, diaphoresis. - Past Medical History Past Medical History: Anxiety, Arthritis, COPD, Depression, Diabetes, Dyslipidemia, GERD, Hypertension - Past Surgical History Surgical History: Cholecystectomy, Hysterectomy, Ortho Surgery - Family History Family Medical History: Diabetes Mellitus, Cancer, [place], Coronary Artery Disease, Sudden Cardiac , Hypertension - Social History Does patient currently use any type of tobacco product: Yes Have you used tobacco products in the last 12 months: Yes Type of Tobacco Use: Cigarettes How many years tobacco product used: 40 Does any household member use tobacco: Yes Alcohol Use: Occasionally Drug Use: None - Medications Home Medications: No Known Drug Allergies [NKDA] Allergy (Verified 05/04/17 17:08) CONTINUE taking the following medications alprazolam 1 mg PO HS 12/17/18 [History] fluoxetine [Prozac] 40 mg PO DAILY 12/17/18 [History] melatonin 10 mg PO HS PRN 12/17/18 [History] montelukast 10 mg PO HS 12/17/18 [History] quetiapine 150 mg PO HS 12/17/18 [History] - Review of Systems Constitutional: Fever, Chills, Weakness Eyes: No Symptoms Reported ENT: No Symptoms Reported Respiratory: Cough, Shortness of Breath, SOB with Excertion, Sputum Cardiovascular: Chest Pain Gastrointestinal: Nausea Genitourinary: No Symptoms Reported Musculoskeletal: Back Pain Skin: No Symptoms Reported Neurological: No Symptoms Reported - Physical Exam Vital Signs: Temperature 97.9 F Pulse Rate [Right Brachial] 89 Pulse Rate 96 Respiratory Rate 22 Blood Pressure [Left Arm] 122/62 Blood Pressure [Right Arm] 167/78 Blood Pressure 141/90 O2 Sat by Pulse Oximetry 90 Oriented: Normal Eyes: Normal Ear: Normal Nose: Normal Throat: Normal Respiratory: Wheezes Throughout, RLL Diminished, LLL Diminished Cardiovascular: Normal, Edema (MILD BILATERAL EVAN) : Normal Auscultation: Bowel Sounds: Normal Palpation: Normal Tenderness: Normal Skin: Decreased Turgur Musculoskeletal: Back:Lumbar Psychiatric: Anxiety Affect: Anxious Speech Pattern: Clear, Appropriate - Assessment/Plan (1) SOB (shortness of breath) Status: Acute Plan: ADMIT ICU, SUPPLEMENTAL O2. RESP THERAPY, SPUTUM CULTURE. IV ATBX, IV LASIX, STRICT I & OS. CARDIAC ENZYMES, ABG. BP AND BS CONTROL (2) Acute bronchitis with COPD Status: Acute (3) Diabetes mellitus type 2 Status: Chronic (4) Essential hypertension Status: Chronic (5) MOE (generalized anxiety disorder) Status: Chronic - Allergies Allergies/Adverse Reactions: Allergies Allergy/AdvReac Type Severity Reaction Status Date / Time No Known Drug Allergies Allergy Verified 05/04/17 17:08 [NKDA]
[2018-12-18] MEDS: LASIX IVP SCH (20:29)
[2018-12-18] MEDS: SNACK - Diabetic Appropriate PO SCH (20:31)
[2018-12-18] MEDS: SEROquel TAB 100 MG PO SCH (20:32)
[2018-12-18] MEDS: SINGULAIR TAB 10 MG PO SCH (20:32)
[2018-12-18 20:38] LABS: CKMB % 1.5 % (<4); CREATINE KINASE MB 1.4 ng/mL (0-4.0); TROPONIN I 0.02 ng/mL (0-1.5)
[2018-12-19] MEDS ORDERED: GLUCOPHAGE ONE ×2 (04:31→17:16)
[2018-12-19 05:00] LABS: BASOPHILS % (AUTO) 0.1 % (0.2-1.0); HEMATOCRIT 35.2 % (36.0-47.0); HEMOGLOBIN 11.4 g/dL (12.0-16.0); LYMPHOCYTES # (AUTO) 0.7 X10^3/uL (1.3-2.9); LYMPHOCYTES % (AUTO) 8.2 % (21.0-51.0); MEAN CORPUSCULAR HGB CONC 32.4 g/dL (33.0-35.0); MEAN CORPUSCULAR VOLUME 95.9 fL (80.0-100.0); MEAN PLATELET VOLUME 10.3 fL (7.4-11.0); MONOCYTES # (AUTO) 0.4 x10^3/uL (0.3-0.8); MONOCYTES % (AUTO) 4.4 % (0.0-13.0); NEUTROPHILS # (AUTO) 7.9 x10^3/uL (2.2-4.8); NEUTROPHILS % (AUTO) 87.3 % (42.0-75.0); PLATELET COUNT 270 X10^3/uL (150.0-450.0); RED BLOOD COUNT 3.67 X10^6/uL (3.5-5.4); RED CELL DISTRIBUTION WIDTH 15.5 % (11.6-16.5)
[2018-12-19] MEDS: DUONEB 0.5 MG/3 MG NEB SCH ×4 (05:15→20:47)
[2018-12-19] MEDS: NEURONTIN TAB 600 MG PO SCH ×3 (05:17→21:20)
[2018-12-19 05:21] LABS: ALANINE AMINOTRANSFERASE 15 Units/L (12-78); ALBUMIN 3.6 g/dL (3.4-5.0); ALKALINE PHOSPHATASE 40 Units/L (46-116); ASPARTATE AMINO TRANSFERASE 13 Units/L (15-37); BLOOD UREA NITROGEN 20 mg/dL (7-18); CALCIUM 8.5 mg/dL (8.5-10.1); CARBON DIOXIDE 26.2 mmol/L (21-32); CHLORIDE 102 mmol/L (98-107); COR NA(FOR HYPERGLY) 142 mmol/L (136-145); SODIUM 140 mmol/L (136-145); TOTAL PROTEIN 7.5 g/dL (6.4-8.2); eGFR NON BLACK RACES 35 (>60)
[2018-12-19] MEDS: XANAX PO SCH ×4 (05:34→20:28)
[2018-12-19] MEDS: GLUCOPHAGE PO SCH ×2 (06:04→17:25)
[2018-12-19] MEDS: AMARYL TAB 4 MG PO SCH (06:04)
[2018-12-19] MEDS: TRICOR TAB 160 MG PO SCH (06:05)
--- NOTE | 2018-12-19 06:22 | RAD ---
HISTORY: Shortness of breath Study: Chest AP portable Comparison 12/17/2018 Findings: Patient is rotated significantly to the left. The heart remains enlarged. Pulmonary venous congestion is present. The previously noted interstitial edema appears to have resolved. No alveolar infiltrates, alveolar edema or pleural effusions are identified. The bony thorax is unremarkable. IMPRESSION: Continued cardiomegaly with pulmonary venous congestion but with resolution of the previously noted interstitial edema No acute infiltrates Reported By:
[2018-12-19] MEDS: LASIX IVP SCH (09:04)
[2018-12-19] MEDS: MICRO K EXTEN CAP 10 MEQ PO SCH (09:04)
[2018-12-19] MEDS: LIPITOR TAB 40 MG PO SCH (09:04)
[2018-12-19] MEDS: LOPRESSOR TAB 50 MG PO SCH ×2 (09:04→20:25)
[2018-12-19] MEDS: BUSPAR PO SCH ×2 (09:04→20:24)
[2018-12-19] MEDS: PROzac PO SCH (09:05)
[2018-12-19] MEDS: PROTONIX TAB 40 MG PO SCH (09:05)
[2018-12-19] MEDS: ZESTRIL TAB 5 MG PO SCH (09:07)
[2018-12-19] MEDS ORDERED: NS 1000 ML 1,000 ML ONE (09:16)
[2018-12-19] MEDS: NS 1000 ML 1,000 ML IV SCH (10:16)
[2018-12-19] MEDS ORDERED: PHARMACY CONSULT - DOSE _____ XX SCH (11:00)
[2018-12-19] MEDS ORDERED: LOVENOX INJ 40 MG SYR SC SCH (16:00)
--- NOTE | 2018-12-19 17:46 | PCM.PROG ---
Progress Note - Progress Note for Day of Date of Exam: 12/18/18 - Subjective Subjective: 58 WF ER ADMISSION YESTERDAY WITH SOB, COPD AND PULMONARY CONGESTION. PT WAS GIVEN LASIX WITH XRAY WITH IMPROVING PULMONDARY EDEMA. PT CONTINUES WITH COUGH AND WHEEZING. PT CO GENERALIZED WEAKNESS. WBC 15.1 ON ADMISSION, QBC 8.3 THIS AM. CREAT 1.49 - Past Medical Family Social History Past Med/Fam/Surg Hx: No changes since H&P Allergies: Allergies No Known Drug Allergies [NKDA] Allergy (Verified 05/04/17 17:08) - Review of Systems ROS: No change since H&P - Vital Signs and I&O's Vital Signs: Temperature 98.1 F Pulse Rate [Right Brachial] 90 Pulse Rate 80 Respiratory Rate 20 Blood Pressure [Left Arm] 172/84 Blood Pressure [Right Arm] 167/78 Blood Pressure 141/90 O2 Sat by Pulse Oximetry 100 Intake and Output: Intake & Output 12/17/18 12/18/18 12/19/18 12/20/18 11:59 11:59 11:59 11:59 Intake Total 720 / 720 910 / 910 620 / 620 Output Total 0 / 0 400 / 400 Balance 720 / 720 510 / 510 620 / 620 - Physical Exam Oriented: Normal Eyes: Normal Ear: Normal Nose: Normal Throat: Normal Respiratory: Diminished, Wheezes, Rhonchi Cardiovascular: Normal, Edema (MILD BILATERAL EVAN) : Normal Auscultation: Bowel Sounds: Normal Tenderness: Normal Skin: Decreased Turgur Musculoskeletal: Back:Lumbar Psychiatric: Anxiety Affect: Anxious Speech Pattern: Clear, Appropriate - Laboratory and Diagnostics Result Diagrams: 12/19/18 04:04 12/19/18 04:04 Labs: 12/17/18 19:53 Sputum - Expectorated Sputum Sputum Culture - Final 12/17/18 19:53 Sputum - Expectorated Sputum - Final Laboratory WBC 9.0 X10^3/uL (3.6-10.0) 12/19/18 04:04 RBC 3.67 X10^6/uL (3.5-5.4) 12/19/18 04:04 Hgb 11.4 g/dL (12.0-16.0) L 12/19/18 04:04 Hct 35.2 % (36.0-47.0) L 12/19/18 04:04 MCV 95.9 fL (80.0-100.0) 12/19/18 04:04 MCH 31.0 pg (27.0-34.0) 12/19/18 04:04 MCHC 32.4 g/dL (33.0-35.0) L 12/19/18 04:04 RDW 15.5 % (11.6-16.5) 12/19/18 04:04 Plt Count 270 X10^3/uL (150.0-450.0) 12/19/18 04:04 MPV 10.3 fL (7.4-11.0) 12/19/18 04:04 Neut % (Auto) 87.3 % (42.0-75.0) H 12/19/18 04:04 Lymph % (Auto) 8.2 % (21.0-51.0) L 12/19/18 04:04 [place] % (Auto) 4.4 % (0.0-13.0) 12/19/18 04:04 Eos % (Auto) 0.0 % (0.9-2.9) L 12/19/18 04:04 Baso % (Auto) 0.1 % (0.2-1.0) L 12/19/18 04:04 Neut # (Auto) 7.9 x10^3/uL (2.2-4.8) H 12/19/18 04:04 Lymph # (Auto) 0.7 X10^3/uL (1.3-2.9) L 12/19/18 04:04 [place] # (Auto) 0.4 x10^3/uL (0.3-0.8) 12/19/18 04:04 Eos # (Auto) 0.0 x10^3/uL (0.0-0.2) 12/19/18 04:04 Baso # (Auto) 0.0 X10^3/uL (0.0-0.1) 12/19/18 04:04 Absolute Nucleated RBC 0.0 /100WBC 12/19/18 04:04 Sample Site Rrad 12/18/18 08:36 ABG pH 7.430 (7.35-7.45) 12/18/18 08:36 ABG pCO2 40.0 mmHg (35.0-45.0) 12/18/18 08:36 ABG pO2 87.0 mmHg (80.0-100.0) 12/18/18 08:36 ABG HCO3 26.5 mmol/L (22-26) H 12/18/18 08:36 ABG O2 Saturation 97.0 % (90-100) 12/18/18 08:36 ABG Base Excess 2.0 mmol/L (-2.0-2.0) 12/18/18 08:36 Rip Test Pos 12/18/18 08:36 A-a Gradient 63.0 mmHg 12/18/18 08:36 FiO2 28.0 12/18/18 08:36 Blood Gas Comments Pt viki well elj 12/18/18 08:36 Sodium 140 mmol/L (136-145) 12/19/18 04:04 Corrected Sodium 142 mmol/L (136-145) 12/19/18 04:04 Potassium 4.0 mmol/L (3.5-5.1) 12/19/18 04:04 Chloride 102 mmol/L (98-107) 12/19/18 04:04 Carbon Dioxide 26.2 mmol/L (21-32) 12/19/18 04:04 BUN 20 mg/dL (7-18) H 12/19/18 04:04 Creatinine 1.60 mg/dL (0.55-1.02) H 12/19/18 04:04 Est GFR (MDRD) Af Amer 43 (>60) L 12/19/18 04:04 Est GFR (MDRD) Non-Af 35 (>60) L 12/19/18 04:04 Glucose 181 mg/dL (65-99) H 12/19/18 04:04 Calcium 8.5 mg/dL (8.5-10.1) 12/19/18 04:04 Corrected Calcium TNP 12/19/18 04:04 Total Bilirubin 0.20 mg/dL (0.2-1.0) 12/19/18 04:04 AST 13 Units/L (15-37) L 12/19/18 04:04 ALT 15 Units/L (12-78) 12/19/18 04:04 Alkaline Phosphatase 40 Units/L (46-116) L 12/19/18 04:04 Creatine Kinase 92 Units/L (26-192) 12/18/18 20:09 CK-MB (CK-2) 1.4 ng/mL (0-4.0) 12/18/18 20:09 CK/CKMB % Calc 1.5 % (<4) 12/18/18 20:09 Troponin I 0.02 ng/mL (0-1.5) 12/18/18 20:09 Total Protein 7.5 g/dL (6.4-8.2) 12/19/18 04:04 Albumin 3.6 g/dL (3.4-5.0) 12/19/18 04:04 Globulin 3.9 g/dL (2.5-4.5) 12/19/18 04:04 Albumin/Globulin Ratio 0.9 Ratio (1.1-2.1) L 12/19/18 04:04 - Plan (1) SOB (shortness of breath) Status: Acute Plan: SUPPLEMENTAL O2. RESP THERAPY, SPUTUM CULTURE. IV ATBX, IV LASIX, STRICT I & OS. CARDIAC ENZYMES, ABG. BP AND BS CONTROL (2) Acute bronchitis with COPD Status: Acute (3) Diabetes mellitus type 2 Status: Chronic (4) Essential hypertension Status: Chronic (5) MOE (generalized anxiety disorder) Status: Chronic
--- NOTE | 2018-12-19 17:53 | PCM.PROG ---
Progress Note - Progress Note for Day of Date of Exam: 12/19/18 - Subjective Subjective: 58 WF ER ADMISSION YESTERDAY WITH SOB, COPD AND PULMONARY CONGESTION. PT WAS GIVEN LASIX WITH XRAY WITH IMPROVING PULMONDARY EDEMA. PT CONTINUES WITH COUGH AND WHEEZING. PT CO GENERALIZED WEAKNESS. WBC 15.1 ON ADMISSION, WBC 9.0 THIS AM. CREAT 1.60. NS AT KVO STARTED FOR GENTLE HYDRATION. ENCOURAGE PT, ORAL HYDRATION AND WILL REPEAT AM CXR 2 VIEW AND ABG. - Past Medical Family Social History Past Med/Fam/Surg Hx: No changes since H&P Allergies: Allergies No Known Drug Allergies [NKDA] Allergy (Verified 05/04/17 17:08) - Review of Systems ROS: No change since H&P - Vital Signs and I&O's Vital Signs: Temperature 98.1 F Pulse Rate [Right Brachial] 90 Pulse Rate 80 Respiratory Rate 20 Blood Pressure [Left Arm] 172/84 Blood Pressure [Right Arm] 167/78 Blood Pressure 141/90 O2 Sat by Pulse Oximetry 100 Intake and Output: Intake & Output 12/17/18 12/18/18 12/19/18 12/20/18 11:59 11:59 11:59 11:59 Intake Total 720 / 720 910 / 910 620 / 620 Output Total 0 / 0 400 / 400 Balance 720 / 720 510 / 510 620 / 620 - Physical Exam Oriented: Normal Eyes: Normal Ear: Normal Nose: Normal Throat: Normal Respiratory: Diminished, Wheezes, Rhonchi Cardiovascular: Normal, Edema (MILD BILATERAL EVAN) : Normal Auscultation: Bowel Sounds: Normal Tenderness: Normal Skin: Decreased Turgur Musculoskeletal: Back:Lumbar Psychiatric: Anxiety Affect: Anxious Speech Pattern: Clear, Appropriate - Laboratory and Diagnostics Result Diagrams: 12/19/18 04:04 12/19/18 04:04 Labs: 12/17/18 19:53 Sputum - Expectorated Sputum Sputum Culture - Final 12/17/18 19:53 Sputum - Expectorated Sputum - Final Laboratory WBC 9.0 X10^3/uL (3.6-10.0) 12/19/18 04:04 RBC 3.67 X10^6/uL (3.5-5.4) 12/19/18 04:04 Hgb 11.4 g/dL (12.0-16.0) L 12/19/18 04:04 Hct 35.2 % (36.0-47.0) L 12/19/18 04:04 MCV 95.9 fL (80.0-100.0) 12/19/18 04:04 MCH 31.0 pg (27.0-34.0) 12/19/18 04:04 MCHC 32.4 g/dL (33.0-35.0) L 12/19/18 04:04 RDW 15.5 % (11.6-16.5) 12/19/18 04:04 Plt Count 270 X10^3/uL (150.0-450.0) 12/19/18 04:04 MPV 10.3 fL (7.4-11.0) 12/19/18 04:04 Neut % (Auto) 87.3 % (42.0-75.0) H 12/19/18 04:04 Lymph % (Auto) 8.2 % (21.0-51.0) L 12/19/18 04:04 [place] % (Auto) 4.4 % (0.0-13.0) 12/19/18 04:04 Eos % (Auto) 0.0 % (0.9-2.9) L 12/19/18 04:04 Baso % (Auto) 0.1 % (0.2-1.0) L 12/19/18 04:04 Neut # (Auto) 7.9 x10^3/uL (2.2-4.8) H 12/19/18 04:04 Lymph # (Auto) 0.7 X10^3/uL (1.3-2.9) L 12/19/18 04:04 [place] # (Auto) 0.4 x10^3/uL (0.3-0.8) 12/19/18 04:04 Eos # (Auto) 0.0 x10^3/uL (0.0-0.2) 12/19/18 04:04 Baso # (Auto) 0.0 X10^3/uL (0.0-0.1) 12/19/18 04:04 Absolute Nucleated RBC 0.0 /100WBC 12/19/18 04:04 Sample Site Rrad 12/18/18 08:36 ABG pH 7.430 (7.35-7.45) 12/18/18 08:36 ABG pCO2 40.0 mmHg (35.0-45.0) 12/18/18 08:36 ABG pO2 87.0 mmHg (80.0-100.0) 12/18/18 08:36 ABG HCO3 26.5 mmol/L (22-26) H 12/18/18 08:36 ABG O2 Saturation 97.0 % (90-100) 12/18/18 08:36 ABG Base Excess 2.0 mmol/L (-2.0-2.0) 12/18/18 08:36 Rip Test Pos 12/18/18 08:36 A-a Gradient 63.0 mmHg 12/18/18 08:36 FiO2 28.0 12/18/18 08:36 Blood Gas Comments Pt viki well elj 12/18/18 08:36 Sodium 140 mmol/L (136-145) 12/19/18 04:04 Corrected Sodium 142 mmol/L (136-145) 12/19/18 04:04 Potassium 4.0 mmol/L (3.5-5.1) 12/19/18 04:04 Chloride 102 mmol/L (98-107) 12/19/18 04:04 Carbon Dioxide 26.2 mmol/L (21-32) 12/19/18 04:04 BUN 20 mg/dL (7-18) H 12/19/18 04:04 Creatinine 1.60 mg/dL (0.55-1.02) H 12/19/18 04:04 Est GFR (MDRD) Af Amer 43 (>60) L 12/19/18 04:04 Est GFR (MDRD) Non-Af 35 (>60) L 12/19/18 04:04 Glucose 181 mg/dL (65-99) H 12/19/18 04:04 Calcium 8.5 mg/dL (8.5-10.1) 12/19/18 04:04 Corrected Calcium TNP 12/19/18 04:04 Total Bilirubin 0.20 mg/dL (0.2-1.0) 12/19/18 04:04 AST 13 Units/L (15-37) L 12/19/18 04:04 ALT 15 Units/L (12-78) 12/19/18 04:04 Alkaline Phosphatase 40 Units/L (46-116) L 12/19/18 04:04 Creatine Kinase 92 Units/L (26-192) 12/18/18 20:09 CK-MB (CK-2) 1.4 ng/mL (0-4.0) 12/18/18 20:09 CK/CKMB % Calc 1.5 % (<4) 12/18/18 20:09 Troponin I 0.02 ng/mL (0-1.5) 12/18/18 20:09 Total Protein 7.5 g/dL (6.4-8.2) 12/19/18 04:04 Albumin 3.6 g/dL (3.4-5.0) 12/19/18 04:04 Globulin 3.9 g/dL (2.5-4.5) 12/19/18 04:04 Albumin/Globulin Ratio 0.9 Ratio (1.1-2.1) L 12/19/18 04:04 - Plan (1) SOB (shortness of breath) Status: Acute Plan: SUPPLEMENTAL O2. RESP THERAPY, SPUTUM CULTURE. IV ATBX, IV LASIX, STRICT I & OS. CARDIAC ENZYMES, ABG. BP AND BS CONTROL (2) Acute bronchitis with COPD Status: Acute (3) Diabetes mellitus type 2 Status: Chronic (4) Essential hypertension Status: Chronic (5) MOE (generalized anxiety disorder) Status: Chronic
[2018-12-19] MEDS: NORCO 10/325 TAB PO PRN (19:53)
[2018-12-19] MEDS: SEROquel TAB 100 MG PO SCH (20:26)
[2018-12-19] MEDS: SINGULAIR TAB 10 MG PO SCH (20:27)
[2018-12-19] MEDS: SNACK - Diabetic Appropriate PO SCH (20:37)
[2018-12-20 05:04] LABS: ABG BASE EXCESS 4.7 mmol/L (-2.0-2.0); ABG HCO3 29.2 mmol/L (22-26)
[2018-12-20] MEDS: DUONEB 0.5 MG/3 MG NEB SCH (05:10)
[2018-12-20 05:20] LABS: BASOPHILS # (AUTO) 0.1 X10^3/uL (0.0-0.1); BASOPHILS % (AUTO) 0.9 % (0.2-1.0); EOSINOPHILS # (AUTO) 0.1 x10^3/uL (0.0-0.2); EOSINOPHILS % (AUTO) 0.6 % (0.9-2.9); HEMATOCRIT 39.7 % (36.0-47.0); HEMOGLOBIN 13.2 g/dL (12.0-16.0); LYMPHOCYTES % (AUTO) 36.1 % (21.0-51.0); MEAN CORPUSCULAR HEMOGLOBIN 31.1 pg (27.0-34.0); MEAN CORPUSCULAR HGB CONC 33.1 g/dL (33.0-35.0); MEAN PLATELET VOLUME 9.7 fL (7.4-11.0); MONOCYTES # (AUTO) 0.7 x10^3/uL (0.3-0.8); MONOCYTES % (AUTO) 8.7 % (0.0-13.0); NEUTROPHILS # (AUTO) 4.5 x10^3/uL (2.2-4.8); NEUTROPHILS % (AUTO) 53.7 % (42.0-75.0); PLATELET COUNT 274 X10^3/uL (150.0-450.0); RED BLOOD COUNT 4.23 X10^6/uL (3.5-5.4); RED CELL DISTRIBUTION WIDTH 15.8 % (11.6-16.5); WHITE BLOOD COUNT 8.3 X10^3/uL (3.6-10.0)
[2018-12-20 05:34] LABS: ALANINE AMINOTRANSFERASE 13 Units/L (12-78); ALBUMIN 3.9 g/dL (3.4-5.0); ALKALINE PHOSPHATASE 44 Units/L (46-116); ASPARTATE AMINO TRANSFERASE 15 Units/L (15-37); BLOOD UREA NITROGEN 26 mg/dL (7-18); CALCIUM 8.8 mg/dL (8.5-10.1); CARBON DIOXIDE 28.9 mmol/L (21-32); CHLORIDE 102 mmol/L (98-107); CREATININE 1.49 mg/dL (0.55-1.02); SODIUM 140 mmol/L (136-145); TOTAL PROTEIN 8.1 g/dL (6.4-8.2); eGFR NON BLACK RACES 38 (>60)
--- NOTE | 2018-12-20 06:01 | RAD ---
Chest radiograph, single view. History: Dyspnea Comparison: 12/19/2018. Findings: There is cardiomegaly with continued interval improvement in pulmonary vasculature congestion. No new lung consolidation. No sizable pleural effusion or pneumothorax. Conclusion: Cardiomegaly with continued interval improvement in pulmonary vasculature congestion. Reported By:
[2018-12-20] MEDS: GLUCOPHAGE PO SCH (06:07)
[2018-12-20] MEDS: XANAX PO SCH (06:07)
[2018-12-20] MEDS: AMARYL TAB 4 MG PO SCH (06:07)
[2018-12-20] MEDS: NEURONTIN TAB 600 MG PO SCH (06:07)
[2018-12-20] MEDS: NS 1000 ML 1,000 ML IV SCH ×2 (06:08→10:13)
[2018-12-20] MEDS: TRICOR TAB 160 MG PO SCH (06:08)
[2018-12-20] MEDS ORDERED: GLUCOPHAGE ONE (06:09)
[2018-12-20] MEDS: BUSPAR PO SCH (10:05)
[2018-12-20] MEDS: PROTONIX TAB 40 MG PO SCH (10:06)
[2018-12-20] MEDS: MICRO K EXTEN CAP 10 MEQ PO SCH (10:06)
[2018-12-20] MEDS: LOPRESSOR TAB 50 MG PO SCH (10:06)
[2018-12-20] MEDS: ZESTRIL TAB 5 MG PO SCH (10:06)
[2018-12-20] MEDS: PROzac PO SCH (10:06)
[2018-12-20] MEDS: LASIX IVP SCH (10:07)
[2018-12-20] MEDS: LIPITOR TAB 40 MG PO SCH (10:07)
[2018-12-20 10:32] VITALS: BP 170/92
[2018-12-20] MEDS: NORCO 10/325 TAB PO PRN (10:58)
== END 2018-12-20 11:48 | disposition home or self-care (01) | DRG 192 ==
LOC: ER 17:52 → ICU 19:20
PROVIDERS: ADMIT Obstetrics & Gynecology Obstetrics; ATTEND Internal Medicine
DX: R94.31 Abnormal electrocardiogram [ECG] [EKG]; J44.0 Chronic obstructive pulmonary disease with (acute) lower respiratory infection; F41.8 Other specified anxiety disorders; J44.1 Chronic obstructive pulmonary disease with (acute) exacerbation; R09.02 Hypoxemia; I10 Essential (primary) hypertension; J20.8 Acute bronchitis due to other specified organisms; E11.65 Type 2 diabetes mellitus with hyperglycemia
CPT/HCPCS: 36415; 36600; 71010; 71020; 71045; 71046; 80048; 80053; 82550; 82553; 82803; 84484; 85025; 87070; 87205; 93005; 94640; 96365; 96374; 96375; 99284; J0696; J1650; J1815; J1940; J2405; J2920; J2930; J7030; J7620

== ENCOUNTER 2021-05-05 12:12 | Observation (INO) ==
[2021-05-05 12:19] VITALS: BMI 34.0
[2021-05-05] MEDS ORDERED: APRESOLINE INJ 20 MG VIAL IVP ONE ×3 (12:54→14:12)
[2021-05-05] MEDS ORDERED: APRESOLINE INJ 20 MG VIAL ONE ×2 (12:59→14:28)
--- NOTE | 2021-05-05 13:13 | DR.HTN ---
HPI Time Seen Time Seen by Provider: 05/05/21 12:46 Primary Care Physician Primary Care Physician: Richard HPI Comment HPI Comment: A 60 y/o female presenting to the ED as she was directed from her PCPs ofice due to elevated BP reading. She states that she felt "weird" on the Lt. side of her body this morningTHis is not chest pain. Shedenies SOB but has had nausea, vomiting and diarrhea since yesterday night. She denies headaches or visual impairment. Complaints Chief Complaint:: Pt c/o high blood pressure, n/v/d. She states Dr. Ramos told her to come to ER. Pt states " I feel funny right here." and points to left side of neck and left arm. She denies pain or shortness of breath. Pt states she has not missed any doses of bp medication. Pt also c/o feeling hot. COVID-19 Coronavirus risk:travel/contact w/high risk person: No Has patient experienced Coronavirus symptoms: No Reviewed Nurses Notes Reviewed: Yes Source History Provided: Patient Mode of Arrival Mode of Arrival: Ambulatory Timing Onset of Chief Complaint: 05/05/21 Severity What was the maximum recorded B/P?: 245/120 Context Circumstances: Spontaneous Onset Treatment of HTN Prior to Arrival: Taking meds as prescribed Associated Signs and Symptoms HTN Associated Signs and Symptoms: Headache, N/V and Weakness PMH PMH Past Medical History: Yes Past Medical History: Asthma, COPD, Diabetes, Dyslipidemia and Hypertension Past Surgical History: Yes Surgical History: Cholecystectomy, 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, Hysterectomy and Ortho Surgery Family History History of Family Medical Conditions: Yes Family Medical History: Diabetes Mellitus, Cancer and Hypertension Social History Does patient currently use any type of tobacco product: Yes Have you used tobacco products in the last 12 months: Yes Type of Tobacco Use: Cigarettes Does any household member use tobacco: No Alcohol Use: None Do you use any recreational Drugs:: Yes (marijuana) Lives With: Family Lives Where: Home Travel Risk Coronavirus risk:travel/contact w/high risk person: No Has patient experienced Coronavirus symptoms: No Infectious screening In the last 2 months have you had wt loss of >10#?: NO Have you had fever, night sweats or hemotysis?: No Have you traveled outside the country in the last 6 months?: No Isolation: Standard ROS Review of Systems Constitutional: No Symptoms Reported Eyes: No Symptoms Reported ENTM: No Symptoms Reported Respiratoy: No Symptoms Reported Cardiovascular: No Symptoms Reported Gastrointestinal/Abdominal: Diarrhea, Nausea and Vomiting Genitourinary: No Symptoms Reported Neurological: No Symptoms Reported Musculoskeletal: No Symptoms Reported Integumentary: No Symptoms Reported Hematologic/Lymphatic: No Symptoms Reported Endocrine: No Symptoms Reported Psychiatric: No Symptoms Reported PE Vital Signs Vitals: Temperature 98.8 F Pulse Rate 94 Respiratory Rate 20 Blood Pressure [Left Arm] 130/62 Blood Pressure 221/114 O2 Sat by Pulse Oximetry 94 General Limitations: No Limitations General Appearance: Alert and In No Apparent Distress Head Head Exam: Normal Inspection, Atraumatic and Normocephalic Eyes Eye exam: Normal Appearance and EOMI ENT ENT Exam: Normal Exam, Normal Oropharynx, Normal External Ear Exam and Mucous Membranes Moist Neck Neck Exam: Normal Inspection, Full ROM and Trachea Midline Chest Chest Inspection: Normal Inspection and Symmetric Chest Wall Rise Respiratory Respiratory Exam: Normal Lung Sounds Bilat Cardiovascular Cardiovascular Exam: Regular Rate, Normal Rhythm, Normal Heart Sounds, +S1 and +S2 Abdominal Exam Abdominal Exam: Normal Inspection, Normal Bowel Sounds and Soft Extremities Extremities Exam: Normal Inspection and Full ROM Back Back Exam: Normal Inspection and Full ROM Neurologic Neurological Exam: Alert, Oriented X3 and CN II-XII Intact Psychiatric Psychiatric Exam: Normal Affect and Normal Mood Skin Skin Exam: Intact COURSE Reevaluation 1st: Improved Consultation Consultation Comments: I spoke with her PCP (Dr. Ramos) who agrees with recommendation for placing her in nObs. status for BP management. Education/Counseling Education/Counseling: Patient, Family, Education and Counseling Educated On: Treatment, Diagnosis, Prognosis and Needs for Follow Up ROR Labs Reviewed Laboratory Results Reviewed?: Yes Result Diagrams: 05/05/21 13:10 05/05/21 13:10 Laboratory: WBC 9.5 X10^3/uL (3.6-10.0) 05/05/21 13:10 RBC 4.83 X10^6/uL (3.5-5.4) 05/05/21 13:10 Hgb 15.8 g/dL (12.0-16.0) 05/05/21 13:10 Hct 46.6 % (36.0-47.0) 05/05/21 13:10 MCV 96.5 fL (80.0-100.0) 05/05/21 13:10 MCH 32.7 pg (27.0-34.0) 05/05/21 13:10 MCHC 33.8 g/dL (33.0-35.0) 05/05/21 13:10 RDW 15.3 % (11.6-16.5) 05/05/21 13:10 Plt Count 264 X10^3/uL (150.0-450.0) 05/05/21 13:10 MPV 9.8 fL (7.4-11.0) 05/05/21 13:10 Neut % (Auto) 79.7 % (42.0-75.0) H 05/05/21 13:10 Lymph % (Auto) 13.7 % (21.0-51.0) L 05/05/21 13:10 [place] % (Auto) 5.4 % (0.0-13.0) 05/05/21 13:10 Eos % (Auto) 0.3 % (0.9-2.9) L 05/05/21 13:10 Baso % (Auto) 0.9 % (0.2-1.0) 05/05/21 13:10 Neut # (Auto) 7.6 x10^3/uL (2.2-4.8) H 05/05/21 13:10 Lymph # (Auto) 1.3 X10^3/uL (1.3-2.9) 05/05/21 13:10 [place] # (Auto) 0.5 x10^3/uL (0.3-0.8) 05/05/21 13:10 Eos # (Auto) 0.0 x10^3/uL (0.0-0.2) 05/05/21 13:10 Baso # (Auto) 0.1 X10^3/uL (0.0-0.1) 05/05/21 13:10 Absolute Nucleated RBC 0.2 /100WBC 05/05/21 13:10 Sodium 136 mmol/L (136-145) 05/05/21 13:10 Corrected Sodium 141 mmol/L (136-145) 05/05/21 13:10 Potassium 3.6 mmol/L (3.5-5.1) 05/05/21 13:10 Chloride 99 mmol/L (98-107) 05/05/21 13:10 Carbon Dioxide 29.3 mmol/L (21-32) 05/05/21 13:10 BUN 10 mg/dL (7-18) 05/05/21 13:10 Creatinine 1.42 mg/dL (0.55-1.02) H 05/05/21 13:10 Est GFR (MDRD) Af Amer 49 (>60) L 05/05/21 13:10 Est GFR (MDRD) Non-Af 40 (>60) L 05/05/21 13:10 Glucose 315 mg/dL (65-99) H 05/05/21 13:10 Calcium 9.1 mg/dL (8.5-10.1) 05/05/21 13:10 Corrected Calcium TNP 05/05/21 13:10 Total Bilirubin 0.40 mg/dL (0.2-1.0) 05/05/21 13:10 AST 36 Units/L (15-37) 05/05/21 13:10 ALT 36 Units/L (12-78) 05/05/21 13:10 Alkaline Phosphatase 86 Units/L (46-116) 05/05/21 13:10 Creatine Kinase 170 Units/L (26-192) 05/05/21 13:10 CK-MB (CK-2) 1.8 ng/mL (0-4.0) 05/05/21 13:10 CK/CKMB % Calc 1.1 % (<4) 05/05/21 13:10 Troponin I < 0.02 ng/mL (0-1.5) 05/05/21 13:10 Total Protein 8.1 g/dL (6.4-8.2) 05/05/21 13:10 Albumin 4.0 g/dL (3.4-5.0) 05/05/21 13:10 Globulin 4.1 g/dL (2.5-4.5) 05/05/21 13:10 Albumin/Globulin Ratio 1.0 Ratio (1.1-2.1) L 05/05/21 13:10 Specimen Type Clean catch urine 05/05/21 13:15 Urine Color Yellow (YELLOW) 05/05/21 13:15 Urine Appearance Hazy (CLEAR) 05/05/21 13:15 Urine pH 6.0 (5.0 - 8.0) 05/05/21 13:15 Ur Specific [place] 1.015 (1.000-1.030) 05/05/21 13:15 Urine Protein 2+ (NEGATIVE) 05/05/21 13:15 Urine Glucose (UA) 4+ (NEGATIVE) 05/05/21 13:15 Urine Ketones 1+ (NEGATIVE) 05/05/21 13:15 Urine Occult Blood 1+ (NEGATIVE) 05/05/21 13:15 Urine Nitrite Negative (NEGATIVE) 05/05/21 13:15 Urine Bilirubin Negative (NEGATIVE) 05/05/21 13:15 Urine Urobilinogen Normal (NORMAL) 05/05/21 13:15 Ur Leukocyte Esterase 3+ (NEGATIVE) 05/05/21 13:15 Urine RBC 3-5 /HPF (0-3) A 05/05/21 13:15 Urine WBC 30-50 /HPF (0-5) A 05/05/21 13:15 Ur Squamous Epith Cells Moderate /HPF (NEGATIVE) 05/05/21 13:15 Urine Bacteria Trace /HPF (NEGATIVE) 05/05/21 13:15 Ur Culture Indicated? Yes/culture set up 05/05/21 13:15 SARS CoV-2 RNA Rapid WALT Negative (NEGATIVE) 05/05/21 15:05 XRAY XRAY Interpreted by: Self X-ray Results: CXR: No acute cardiomegaly, No infiltrates noted. Opioid Opioid Risk Tool Family Hx of Substance Abuse: Alcohol Age (Franco box if 16-45): No History of Preadolescent Sexual Abuse: No Psychological Disease: PTSD Total: 0 Total Score Risk Category: Low Risk Copyright: [facility] predicting aberrant behaviors Diagnosis Discharge Problem: Hypertension, uncontrolled, Diabetes mellitus type 2, Depression, MOE (generalized anxiety disorder), Mixed hyperlipidemia Osteoarthritis of multiple joints Qualifiers: Osteoarthritis type: primary Qualified Code(s): M15.9 - Polyosteoarthritis, unspecified GERD (gastroesophageal reflux disease) Qualifiers: Esophagitis presence: without esophagitis Qualified Code(s): K21.9 - Gastro- esophageal reflux disease without esophagitis COPD (chronic obstructive pulmonary disease) Qualifiers: COPD type: chronic bronchitis Chronic bronchitis type: simple Qualified Code (s): J41.0 - Simple chronic bronchitis ADDITIONAL NOTES Additional Notes Additional Notes: [id number]: [id number] : 1960Sex: FLocation: ER Order Number(s): [id number](s):CHEST, 1 VIEW Ordering Physician: DARY JOLLEY Primary Care: Yesica Ramos M.D. Service Date: 05/05/21 Service Time: 1254 HISTORY Elevated blood pressure STUDY AP chest COMPARISON January 18, 2020 FINDINGS The heart is normal in size, unchanged. The lungs are clear of infiltrates. Slight prominence of the central pulmonary vasculature may be related to the nonstandard technical factors. There is no evidence for hilar enlargement, pneumothorax, atelectasis or pleural effusion. IMPRESSION No definite chest abnormality identified. Electronically signed by: GASPER ABDUL (May 05, 2021 14:42:54) Report Electronically signed: 05/05/21 1444 CC: Dary Jolley
[2021-05-05 13:20] LABS: BILIRUBIN,URINE NEGATIVE (NEGATIVE); BLOOD/HEMOGLOBIN,URINE 1+ (NEGATIVE); GLUCOSE, URINE 4+ (NEGATIVE); KETONES,URINE 1+ (NEGATIVE); LEUKOCYTE ESTERASE ,URINE 3+ (NEGATIVE); NITRITES,URINE NEGATIVE (NEGATIVE); PROTEIN,URINE 2+ (NEGATIVE); UROBILINOGEN,URINE NORMAL (NORMAL)
[2021-05-05 13:22] LABS: BASOPHILS # (AUTO) 0.1 X10^3/uL (0.0-0.1); BASOPHILS % (AUTO) 0.9 % (0.2-1.0); EOSINOPHILS % (AUTO) 0.3 % (0.9-2.9); HEMATOCRIT 46.6 % (36.0-47.0); HEMOGLOBIN 15.8 g/dL (12.0-16.0); LYMPHOCYTES # (AUTO) 1.3 X10^3/uL (1.3-2.9); LYMPHOCYTES % (AUTO) 13.7 % (21.0-51.0); MEAN CORPUSCULAR HEMOGLOBIN 32.7 pg (27.0-34.0); MEAN CORPUSCULAR HGB CONC 33.8 g/dL (33.0-35.0); MEAN CORPUSCULAR VOLUME 96.5 fL (80.0-100.0); MEAN PLATELET VOLUME 9.8 fL (7.4-11.0); MONOCYTES # (AUTO) 0.5 x10^3/uL (0.3-0.8); MONOCYTES % (AUTO) 5.4 % (0.0-13.0); NEUTROPHILS # (AUTO) 7.6 x10^3/uL (2.2-4.8); NEUTROPHILS % (AUTO) 79.7 % (42.0-75.0); PLATELET COUNT 264 X10^3/uL (150.0-450.0); RED BLOOD COUNT 4.83 X10^6/uL (3.5-5.4); RED CELL DISTRIBUTION WIDTH 15.3 % (11.6-16.5); WHITE BLOOD COUNT 9.5 X10^3/uL (3.6-10.0)
[2021-05-05 13:29] LABS: APPEARANCE,URINE HAZY (CLEAR); BACTERIA,URINE TRACE /HPF (NEGATIVE); COLOR,URINE YELLOW (YELLOW); SQUAMOUS EPITHELIAL CELL,UR MODERATE /HPF (NEGATIVE)
[2021-05-05 13:46] LABS: ALANINE AMINOTRANSFERASE 36 Units/L (12-78); ALKALINE PHOSPHATASE 86 Units/L (46-116); ASPARTATE AMINO TRANSFERASE 36 Units/L (15-37); BLOOD UREA NITROGEN 10 mg/dL (7-18); CALCIUM 9.1 mg/dL (8.5-10.1); CARBON DIOXIDE 29.3 mmol/L (21-32); CHLORIDE 99 mmol/L (98-107); CKMB % 1.1 % (<4); COR NA(FOR HYPERGLY) 141 mmol/L (136-145); CREATINE KINASE 170 Units/L (26-192); CREATINE KINASE MB 1.8 ng/mL (0-4.0); CREATININE 1.42 mg/dL (0.55-1.02); SODIUM 136 mmol/L (136-145); TOTAL PROTEIN 8.1 g/dL (6.4-8.2); TROPONIN I < 0.02 ng/mL (0-1.5); eGFR NON BLACK RACES 40 (>60)
--- NOTE | 2021-05-05 14:44 | RAD ---
HISTORYElevated blood pressureSTUDYAP chestCOMPARISONSeptember 2019FINDINGSThe heart is normal in size, unchanged. The lungs are clear of infiltrates. Slight prominence of the central pulmonary vasculature may be related to the nonstandard technical factors. There is no evidence for hilar enlargement, pneumothorax, atelectasis or pleural effusion.IMPRESSIONNo definite chest abnormality identified.Electronically signed by: GASPER ABDUL (May 05, 2021 14:42:54)
[2021-05-05] MEDS ORDERED: NORMODYNE INJ 100 MG VIAL IVP ONE (16:07)
[2021-05-05] MEDS ORDERED: NORMODYNE INJ 20 MG VIAL ONE (16:11)
[2021-05-05] MEDS ORDERED: ZOFRAN INJ 4 MG VIAL IVP ONE (16:23)
[2021-05-05] MEDS ORDERED: ZOFRAN INJ 4 MG VIAL ONE (16:23)
[2021-05-05] MEDS ORDERED: ROCEPHIN VIAL 1 GRAM IV ONE (17:16)
[2021-05-05] MEDS: NORCO 5/325 MG TAB PO PRN (18:28)
[2021-05-05] MEDS: APRESOLINE INJ 20 MG VIAL IVP PRN (18:28)
[2021-05-05] MEDS: XANAX PO PRN (18:29)
[2021-05-05] MEDS ORDERED: ZANAFLEX PO PRN (18:48)
[2021-05-05] MEDS ORDERED: SNACK - Diabetic Appropriate PO SCH (20:00)
[2021-05-05] MEDS: ROCEPHIN VIAL 1 GRAM 1 G in NS 100 ML IV + SPIKE MINIBAG* 100 ML IV SCH (20:16)
[2021-05-05] MEDS ORDERED: SINGULAIR TAB 10 MG PO SCH (21:00)
[2021-05-05] MEDS: LOPRESSOR TAB 50 MG PO SCH (21:20)
[2021-05-05] MEDS: NEURONTIN TAB 600 MG PO SCH (21:20)
[2021-05-05] MEDS: NovoLIN R (or HumuLIN R) SUBCUT PRN (21:30)
[2021-05-06 05:00] LABS: BASOPHILS # (AUTO) 0.1 X10^3/uL (0.0-0.1); BASOPHILS % (AUTO) 0.8 % (0.2-1.0); EOSINOPHILS % (AUTO) 0.2 % (0.9-2.9); HEMATOCRIT 41.7 % (36.0-47.0); LYMPHOCYTES # (AUTO) 1.9 X10^3/uL (1.3-2.9); LYMPHOCYTES % (AUTO) 16.6 % (21.0-51.0); MEAN CORPUSCULAR HGB CONC 33.5 g/dL (33.0-35.0); MEAN CORPUSCULAR VOLUME 95.5 fL (80.0-100.0); MEAN PLATELET VOLUME 9.6 fL (7.4-11.0); MONOCYTES # (AUTO) 0.8 x10^3/uL (0.3-0.8); MONOCYTES % (AUTO) 7.4 % (0.0-13.0); NEUTROPHILS # (AUTO) 8.5 x10^3/uL (2.2-4.8); PLATELET COUNT 255 X10^3/uL (150.0-450.0); RED BLOOD COUNT 4.37 X10^6/uL (3.5-5.4); RED CELL DISTRIBUTION WIDTH 15.1 % (11.6-16.5); WHITE BLOOD COUNT 11.4 X10^3/uL (3.6-10.0)
[2021-05-06 05:17] LABS: ALANINE AMINOTRANSFERASE 27 Units/L (12-78); ALBUMIN 3.6 g/dL (3.4-5.0); ALKALINE PHOSPHATASE 70 Units/L (46-116); ASPARTATE AMINO TRANSFERASE 26 Units/L (15-37); BLOOD UREA NITROGEN 10 mg/dL (7-18); CALCIUM 8.9 mg/dL (8.5-10.1); CARBON DIOXIDE 26.9 mmol/L (21-32); CHLORIDE 101 mmol/L (98-107); COR NA(FOR HYPERGLY) 137 mmol/L (136-145); CREATININE 1.19 mg/dL (0.55-1.02); SODIUM 136 mmol/L (136-145); TOTAL PROTEIN 7.2 g/dL (6.4-8.2); eGFR NON BLACK RACES 50 (>60)
[2021-05-06] MEDS: NEURONTIN TAB 600 MG PO SCH ×2 (05:35→13:07)
[2021-05-06] MEDS ORDERED: AMARYL TAB 4 MG PO SCH (07:00)
[2021-05-06] MEDS ORDERED: GLUCOPHAGE PO SCH (07:00)
[2021-05-06] MEDS ORDERED: GLUCOPHAGE ONE (07:35)
[2021-05-06] MEDS: XANAX PO PRN (08:01)
[2021-05-06] MEDS: LOPRESSOR TAB 50 MG PO SCH (08:42)
[2021-05-06] MEDS: ROCEPHIN VIAL 1 GRAM 1 G in NS 100 ML IV + SPIKE MINIBAG* 100 ML IV SCH (08:43)
[2021-05-06] MEDS ORDERED: ZESTRIL TAB 20 MG PO SCH ×2 (09:00)
[2021-05-06] MEDS ORDERED: LASIX PO SCH (09:00)
[2021-05-06] MEDS ORDERED: LOPRESSOR TAB 50 MG PO SCH (09:00)
[2021-05-06] MEDS ORDERED: TRICOR TAB 160 MG PO SCH (09:00)
[2021-05-06] MEDS ORDERED: LISINOPRIL 10 MG PO SCH (09:00)
[2021-05-06] MEDS ORDERED: PROTONIX TAB 40 MG PO SCH (09:00)
[2021-05-06] MEDS ORDERED: PROzac PO SCH (09:00)
[2021-05-06] MEDS ORDERED: MICRO K EXTEN CAP 10 MEQ PO SCH (09:00)
[2021-05-06] MEDS ORDERED: LOVENOX INJ 40 MG SYR SC SCH (09:00)
[2021-05-06] MEDS ORDERED: ZESTRIL TAB 20 MG ONE (09:08)
[2021-05-06] MEDS: NORCO 5/325 MG TAB PO PRN (11:31)
[2021-05-06] MEDS: NovoLIN R (or HumuLIN R) SUBCUT PRN (11:41)
[2021-05-06] MEDS: APRESOLINE INJ 20 MG VIAL IVP PRN (12:16)
--- NOTE | 2021-05-06 13:38 | DR.SSS ---
SHORT STAY SUMMARY Admission Date Date of Admission: 05/05/21 Discharge Date Discharge Date: 05/06/21 Admission Diagnoses Admission Diagnoses: Hypertension urgency Diarrhea UTI Discharge Diagnoses Discharge Diagnoses: Hypertension urgency UTI LAUREN Chief Complaint Chief Complaint: headache, elevated BP History of Present Illness History of Present Illness: Ms Mohamud is a 60y/o female with a PMH of COPD, Type 2 DM, HTN, HLD and chronic pain/anxiety was seen in the clinic on 05/05/21 for a routine follow up. Her BP was noted to be elevated 175/119 and she was feeling sick with nausea, abdominal pain, headache and diaphoresis. Patient was sent to the ER for further evaluation. In the ER, SBP was above 200. She was given IV hydralazine but remained elevated so was given IV labetalol. She was also found to have UTI. She was admitted to ICU for HTN urgency and UTI. Past Medical History Past Medical History: Asthma, COPD, Diabetes, Dyslipidemia and Hypertension Past Surgical History Surgical History: Cholecystectomy and Hysterectomy Allergies Allergies Allergy/AdvReac Type Severity Reaction Status Date / Time No Known Drug Allergies Allergy Verified 04/22/21 08:12 [NKDA] Medications Home Medications: No Known Drug Allergies [NKDA] Allergy (Verified 04/22/21 08:12) Family History Family Medical History: Diabetes Mellitus and Hypertension Social History Does patient currently use any type of tobacco product: Yes Have you used tobacco products in the last 12 months: Yes Type of Tobacco Use: Cigarettes How many years tobacco product used: 40 Does any household member use tobacco: Yes Alcohol Use: Occasionally Drug Use: Prescription Drugs and Marijuana Review of Systems Constitutional: Malaise Eyes: No Symptoms Reported ENT: No Symptoms Reported Respiratory: SOB with Excertion Cardiovascular: Chest Pain and Palpitations Gastrointestinal: Nausea, Vomiting, Abdominal Pain and Diarrhea Genitourinary: No Symptoms Reported Musculoskeletal: Back Pain Skin: No Symptoms Reported Neurological: No Symptoms Reported Physical Exam Vital Signs: Last Vital Signs Temp 98.9 F 05/06/21 12:00 Pulse 90 05/06/21 13:24 Resp 20 05/06/21 13:24 BP 159/75 05/06/21 13:24 Pulse Ox 92 L 05/06/21 13:24 Oriented: Normal Eyes: Normal Ear: Normal Nose: Normal Throat: Normal Respiratory: Clear Throughout Cardiovascular: Normal Auscultation: Bowel Sounds: Normal Palpation: Normal Tenderness: Normal Skin: Normal Musculoskeletal: Back:Thoracic, Back:Lumbar and Back:Paraspinous Psychiatric: Anxiety Mood Description: Calm Affect: Normal Speech Pattern: Clear and Appropriate Labs Labs: Laboratory Last Values WBC 11.4 X10^3/uL (3.6-10.0) H 05/06/21 04:30 RBC 4.37 X10^6/uL (3.5-5.4) 05/06/21 04:30 Hgb 14.0 g/dL (12.0-16.0) 05/06/21 04:30 Hct 41.7 % (36.0-47.0) 05/06/21 04:30 MCV 95.5 fL (80.0-100.0) 05/06/21 04:30 MCH 32.0 pg (27.0-34.0) 05/06/21 04:30 MCHC 33.5 g/dL (33.0-35.0) 05/06/21 04:30 RDW 15.1 % (11.6-16.5) 05/06/21 04:30 Plt Count 255 X10^3/uL (150.0-450.0) 05/06/21 04:30 MPV 9.6 fL (7.4-11.0) 05/06/21 04:30 Neut % (Auto) 75.0 % (42.0-75.0) 05/06/21 04:30 Lymph % (Auto) 16.6 % (21.0-51.0) L 05/06/21 04:30 [place] % (Auto) 7.4 % (0.0-13.0) 05/06/21 04:30 Eos % (Auto) 0.2 % (0.9-2.9) L 05/06/21 04:30 Baso % (Auto) 0.8 % (0.2-1.0) 05/06/21 04:30 Neut # (Auto) 8.5 x10^3/uL (2.2-4.8) H 05/06/21 04:30 Lymph # (Auto) 1.9 X10^3/uL (1.3-2.9) 05/06/21 04:30 [place] # (Auto) 0.8 x10^3/uL (0.3-0.8) 05/06/21 04:30 Eos # (Auto) 0.0 x10^3/uL (0.0-0.2) 05/06/21 04:30 Baso # (Auto) 0.1 X10^3/uL (0.0-0.1) 05/06/21 04:30 Absolute Nucleated RBC 0.1 /100WBC 05/06/21 04:30 Sodium 136 mmol/L (136-145) 05/06/21 04:30 Corrected Sodium 137 mmol/L (136-145) 05/06/21 04:30 Potassium 3.6 mmol/L (3.5-5.1) 05/06/21 04:30 Chloride 101 mmol/L (98-107) 05/06/21 04:30 Carbon Dioxide 26.9 mmol/L (21-32) 05/06/21 04:30 BUN 10 mg/dL (7-18) 05/06/21 04:30 Creatinine 1.19 mg/dL (0.55-1.02) H 05/06/21 04:30 Est GFR (MDRD) Af Amer 60 (>60) 05/06/21 04:30 Est GFR (MDRD) Non-Af 50 (>60) L 05/06/21 04:30 Glucose 141 mg/dL (65-99) H 05/06/21 04:30 POC Glucose (mg/dL) 170 mg/dL (65-99) H 05/06/21 11:36 Calcium 8.9 mg/dL (8.5-10.1) 05/06/21 04:30 Corrected Calcium TNP 05/06/21 04:30 Total Bilirubin 0.40 mg/dL (0.2-1.0) 05/06/21 04:30 AST 26 Units/L (15-37) 05/06/21 04:30 ALT 27 Units/L (12-78) 05/06/21 04:30 Alkaline Phosphatase 70 Units/L (46-116) 05/06/21 04:30 Creatine Kinase 170 Units/L (26-192) 05/05/21 13:10 CK-MB (CK-2) 1.8 ng/mL (0-4.0) 05/05/21 13:10 CK/CKMB % Calc 1.1 % (<4) 05/05/21 13:10 Troponin I < 0.02 ng/mL (0-1.5) 05/05/21 13:10 Total Protein 7.2 g/dL (6.4-8.2) 05/06/21 04:30 Albumin 3.6 g/dL (3.4-5.0) 05/06/21 04:30 Globulin 3.6 g/dL (2.5-4.5) 05/06/21 04:30 Albumin/Globulin Ratio 1.0 Ratio (1.1-2.1) L 05/06/21 04:30 Specimen Type Clean catch urine 05/05/21 13:15 Urine Color Yellow (YELLOW) 05/05/21 13:15 Urine Appearance Hazy (CLEAR) 05/05/21 13:15 Urine pH 6.0 (5.0 - 8.0) 05/05/21 13:15 Ur Specific [place] 1.015 (1.000-1.030) 05/05/21 13:15 Urine Protein 2+ (NEGATIVE) 05/05/21 13:15 Urine Glucose (UA) 4+ (NEGATIVE) 05/05/21 13:15 Urine Ketones 1+ (NEGATIVE) 05/05/21 13:15 Urine Occult Blood 1+ (NEGATIVE) 05/05/21 13:15 Urine Nitrite Negative (NEGATIVE) 05/05/21 13:15 Urine Bilirubin Negative (NEGATIVE) 05/05/21 13:15 Urine Urobilinogen Normal (NORMAL) 05/05/21 13:15 Ur Leukocyte Esterase 3+ (NEGATIVE) 05/05/21 13:15 Urine RBC 3-5 /HPF (0-3) A 05/05/21 13:15 Urine WBC 30-50 /HPF (0-5) A 05/05/21 13:15 Ur Squamous Epith Cells Moderate /HPF (NEGATIVE) 05/05/21 13:15 Urine Bacteria Trace /HPF (NEGATIVE) 05/05/21 13:15 Ur Culture Indicated? Yes/culture set up 05/05/21 13:15 SARS CoV-2 RNA Rapid WALT Negative (NEGATIVE) 05/05/21 15:05 Hospital Course Hospital Course: Patient admitted to ICU for hypertensive urgency and UTI. Patient's EKG and cardiac enzymes negative on admission. Patient's BP improved with IV hydralazine and labetalol. She was started on IV Rocephin.Home medications resumed. Patient's feeling better with no N/V/D. She was tolerating PO intake. She has been ambulating in the room. Denies chest pain or SOB. Patient stable to be discharged. She will f/u with PCP in one week. Patient's urine Cx showed Gram positive. She was discharged home on Augmentin and hydralazine PO. Discharge Medications Discharge Medications: Prescriptions: Discharge Disposition Discharge Disposition: Home
[2021-05-06] MEDS ORDERED: APRESOLINE TAB 25 MG PO SCH (14:00)
[2021-05-06 15:42] VITALS: BP 158/69
== END 2021-05-06 15:32 | disposition home or self-care (01) ==
LOC: ER 12:12 → ICU 12:12
PROVIDERS: ADMIT Internal Medicine; ATTEND Internal Medicine
DX: N39.0 Urinary tract infection, site not specified; R51.9 Headache, unspecified; R19.7 Diarrhea, unspecified; R94.31 Abnormal electrocardiogram [ECG] [EKG]; K21.9 Gastro-esophageal reflux disease without esophagitis; I16.0 Hypertensive urgency; F41.8 Other specified anxiety disorders; Z20.822 Contact with and (suspected) exposure to COVID-19; J44.9 Chronic obstructive pulmonary disease, unspecified; R06.02 Shortness of breath; E78.2 Mixed hyperlipidemia; B95.1 Streptococcus, group B, as the cause of diseases classified elsewhere; M15.9 Polyosteoarthritis, unspecified; E11.65 Type 2 diabetes mellitus with hyperglycemia

== ENCOUNTER 2023-07-26 16:08 | Inpatient (IN) ==
--- NOTE | 2023-07-26 16:29 | DR.SOBA ---
HPI Time Seen Time Seen by Provider: 07/26/23 16:27 Complaints Chief Complaint Doctors Comments: 63-year-old female presents for evaluation. Patient positive for COVID 2 weeks ago. Had a productive cough, fevers then. Cough has persisted. Is productive of white bubbly sputum. Patient feeling adilson rt of breath, worse with exertion. She denies true chest pain, however states her substernal region has felt "weird". No current fever, chills, URI symptoms. Denies swelling of her ankles. Has a family history of CHF, but not for the pt. Does have a history of COPD, has cut down her smoking to 1/2 pack of cigarettes per day. Reviewed Nurses Notes Reviewed: Yes Source History Provided: Patient Mode of Arrival Mode of Arrival: Ambulatory PMH PMH Past Medical History: Anxiety, Arthritis, COPD, Depression, Diabetes, Dyslipidemia and Hypertension Past Surgical History: Yes Surgical History: Cholecystectomy, Hysterectomy and Joint Replacement Family History Family Medical History: Diabetes Mellitus, Cancer, Coronary Artery Disease and Hypertension Social History Does patient currently use any type of tobacco product: Yes Packs per day or dips/chews per day: 1/2 Alcohol Use: None Do you use any recreational Drugs:: No ROS Review of Systems Constitutional: No Symptoms Reported Eyes: No Symptoms Reported ENTM: No Symptoms Reported Respiratoy: See HPI Cardiovascular: See HPI Gastrointestinal/Abdominal: No Symptoms Reported Genitourinary: No Symptoms Reported Neurological: No Symptoms Reported Musculoskeletal: No Symptoms Reported Integumentary: No Symptoms Reported Hematologic/Lymphatic: No Symptoms Reported Psychiatric: No Symptoms Reported All Other Systems: Reviewed and Negative PE Vital Signs Vitals: Vital Signs Temperature 98.0 F Pulse Rate 78 Pulse Rate 74 Pulse Rate 76 Pulse Rate 81 Pulse Rate 75 Pulse Rate 76 Pulse Rate 76 Pulse Rate 74 Pulse Rate 72 Pulse Rate 68 Pulse Rate 70 Pulse Rate 66 Pulse Rate 70 Pulse Rate 66 Pulse Rate 69 Pulse Rate 69 Pulse Rate 71 Respiratory Rate 23 Respiratory Rate 20 Respiratory Rate 22 Respiratory Rate 21 Respiratory Rate 30 Respiratory Rate 21 Respiratory Rate 21 Respiratory Rate 19 Respiratory Rate 24 Respiratory Rate 22 Respiratory Rate 20 Respiratory Rate 18 Respiratory Rate 22 Respiratory Rate 18 Respiratory Rate 22 Blood Pressure 167/101 Blood Pressure 171/80 Blood Pressure 188/87 Blood Pressure 196/96 Blood Pressure 193/81 Blood Pressure 203/98 Blood Pressure 205/96 Blood Pressure 196/96 Blood Pressure 187/90 Blood Pressure 146/83 O2 Sat by Pulse Oximetry 91 O2 Sat by Pulse Oximetry 93 O2 Sat by Pulse Oximetry 93 O2 Sat by Pulse Oximetry 92 O2 Sat by Pulse Oximetry 91 O2 Sat by Pulse Oximetry 92 O2 Sat by Pulse Oximetry 92 O2 Sat by Pulse Oximetry 92 O2 Sat by Pulse Oximetry 98 O2 Sat by Pulse Oximetry 93 O2 Sat by Pulse Oximetry 95 O2 Sat by Pulse Oximetry 93 O2 Sat by Pulse Oximetry 95 O2 Sat by Pulse Oximetry 94 O2 Sat by Pulse Oximetry 94 O2 Sat by Pulse Oximetry 94 O2 Sat by Pulse Oximetry 88 General General Appearance: Alert and In No Apparent Distress Eyes Eye exam: PERRL and EOMI ENT ENT Exam: Normal Oropharynx and Mucous Membranes Moist Neck Neck Exam: Normal Inspection; negative Tenderness Respiratory Respiratory Exam: Normal Lung Sounds Bilat and Other (Has decreased breath sounds at the bases); negative Accessory Muscle Use or Respiratory Distress Cardiovascular Cardiovascular Exam: Regular Rate, Normal Rhythm and Normal Heart Sounds Abdominal Exam Abdominal Exam: Normal Bowel Sounds and Soft; negative Tenderness Extremities Extremities Exam: Normal Inspection; negative Edema Neurologic Neurological Exam: Alert, Oriented X3 and CN II-XII Intact; negative Motor Sensory Deficit Skin Skin Exam: Warm and Dry COURSE Treatment Treatment: 63-year-old female, history of COPD, recent COVID infection, presents for evaluation. Having dyspnea, worse with exertion. Pulse ox on room air 88 to 89%. Workup initiated. Patient placed on 2 L nasal cannula, 94% pulse ox now. 1917 -chest x-ray with increased peribronchial markings, but more prominent on the right side, no obvious infiltrate present. CBC is normal. Chemistries show potassium little low at 3.1. Troponin was normal at 8. BNP slightly elevated, 244. Lactic acid acceptable at 0.9. Patient blood pressure significantly elevated, given IV hydralazine, is coming down. Patient was given a DuoNeb treatment as well as IV Solu-Medrol 125 mgs. pulse ox on 2 L running around 93%. ABG done on 2 L was normal pH, P CO2 46, PaO2 53, bicarb up at 32 with 89% sat on 2 L. Patient clinically with exacerbation of COPD, with hypoxia at room air. She does not have O2 at home. Recommend admission for further treatment. Will cover with IV Rocephin. 1934 -discussed admission with Dr. Chester, covering for Dr. Lamas, accepts the admission. [facility] Labs Reviewed 07/26/23 16:50 07/26/23 16:58 Laboratory: WBC 9.8 X10^3/uL (3.6-10.0) 07/26/23 16:50 RBC 4.87 X10^6/uL (3.5-5.4) 07/26/23 16:50 Hgb 14.5 g/dL (12.0-16.0) 07/26/23 16:50 Hct 44.9 % (36.0-47.0) 07/26/23 16:50 MCV 92.0 fL (80.0-100.0) 07/26/23 16:50 MCH 29.9 pg (27.0-34.0) 07/26/23 16:50 MCHC 32.4 g/dL (33.0-35.0) L 07/26/23 16:50 RDW 15.7 % (11.6-16.5) 07/26/23 16:50 Plt Count 236 X10^3/uL (150.0-450.0) 07/26/23 16:50 MPV 9.2 fL (7.4-11.0) 07/26/23 16:50 Neut % (Auto) 78.2 % (42.0-75.0) H 07/26/23 16:50 Lymph % (Auto) 12.5 % (21.0-51.0) L 07/26/23 16:50 [place] % (Auto) 8.0 % (0.0-13.0) 07/26/23 16:50 Eos % (Auto) 0.3 % (0.9-2.9) L 07/26/23 16:50 Baso % (Auto) 1.0 % (0.2-1.0) 07/26/23 16:50 Neut # (Auto) 7.7 x10^3/uL (2.2-4.8) H 07/26/23 16:50 Lymph # (Auto) 1.2 X10^3/uL (1.3-2.9) L 07/26/23 16:50 [place] # (Auto) 0.8 x10^3/uL (0.3-0.8) 07/26/23 16:50 Eos # (Auto) 0.0 x10^3/uL (0.0-0.2) 07/26/23 16:50 Baso # (Auto) 0.1 X10^3/uL (0.0-0.1) 07/26/23 16:50 Absolute Nucleated RBC 0.1 /100WBC 07/26/23 16:50 Sample Site Rr 07/26/23 18:52 ABG pH 7.450 (7.35-7.45) 07/26/23 18:52 ABG pCO2 46.0 mmHg (35.0-45.0) H 07/26/23 18:52 ABG pO2 53.0 mmHg (80.0-100.0) L 07/26/23 18:52 ABG HCO3 32.0 mmol/L (22-26) H* 07/26/23 18:52 ABG O2 Saturation 89.0 % (90-100) L 07/26/23 18:52 ABG Base Excess 7.0 mmol/L (-2.0-2.0) H 07/26/23 18:52 Rip Test Pos 07/26/23 18:52 A-a Gradient 89.0 mmHg 07/26/23 18:52 FiO2 28.0 07/26/23 18:52 Blood Gas Comments Jeff well sw 07/26/23 18:52 Sodium 140 mmol/L (136-145) 07/26/23 16:58 Corrected Sodium 141 mmol/L (136-145) 07/26/23 16:58 Potassium 3.1 mmol/L (3.5-5.1) L 07/26/23 16:58 Chloride 102 mmol/L (98-107) 07/26/23 16:58 Carbon Dioxide 27.2 mmol/L (21-32) 07/26/23 16:58 BUN 8 mg/dL (7-18) 07/26/23 16:58 Creatinine 0.95 mg/dL (0.55-1.02) 07/26/23 16:58 Est GFR (MDRD) Af Amer > 60 (>60) 07/26/23 16:58 Est GFR (MDRD) Non-Af > 60 (>60) 07/26/23 16:58 Glucose 131 mg/dL (65-99) H 07/26/23 16:58 Lactic Acid 0.9 mmol/L (0.4-2.0) 07/26/23 16:50 Calcium 8.9 mg/dL (8.5-10.1) 07/26/23 16:58 Corrected Calcium TNP 07/26/23 16:58 Total Bilirubin 0.40 mg/dL (0.2-1.0) 07/26/23 16:58 AST 14 Units/L (15-37) L 07/26/23 16:58 ALT 12 Units/L (12-78) 07/26/23 16:58 Alkaline Phosphatase 56 Units/L (46-116) 07/26/23 16:58 Troponin I High Sens 8.0 ng/L (4.0-60.0) 07/26/23 16:58 B-Natriuretic Peptide 244 pg/mL (0-79) H 07/26/23 16:58 Total Protein 7.4 g/dL (6.4-8.2) 07/26/23 16:58 Albumin 3.5 g/dL (3.4-5.0) 07/26/23 16:58 Globulin 3.9 g/dL (2.5-4.5) 07/26/23 16:58 Albumin/Globulin Ratio 0.9 Ratio (1.1-2.1) L 07/26/23 16:58 EKG Rate: 69 [place]: Normal Rhythm: NSR Block: None ST: Normal Opioid Opioid Risk Tool Family Hx of Substance Abuse: Alcohol Age (Franco box if 16-45): No History of Preadolescent Sexual Abuse: No Psychological Disease: PTSD Total: 0 Total Score Risk Category: Low Risk Copyright: Mack GOULD predicting aberrant behaviors Discharge Plan Diagnosis Discharge Problem: COPD exacerbation, Hypoxia Discharge Plan Patient Disposition: ADMITTED INPATIENT Condition: Stable Orders to Discharge Patient Discharge Orders: Transfer (Routine); Ordered 07/26/23 Ordered By: Lito Rodriguez
[2023-07-26 16:33] VITALS: BMI 32.8
--- NOTE | 2023-07-26 16:54 | EKG ---
Test Reason : dyspnea Blood Pressure : */* mmHG Vent. Rate : 69 BPM Atrial Rate : 69 BPM P-R Int : 166 ms QRS Dur : 74 ms QT Int : 486 ms P-R-T Axes : 60 -4 -6 degrees QTc Int : 520 ms Normal sinus rhythm Low voltage QRS Cannot rule out Anterior infarct , age undetermined Prolonged QT Abnormal ECG No previous ECGs available Confirmed by Abhishek Lewis ([id number]) on 07/30/2023 9:09:26 AM Referred By: Confirmed By: Abhishek Lewis
[2023-07-26 17:20] LABS: BASOPHILS # (AUTO) 0.1 X10^3/uL (0.0-0.1); EOSINOPHILS % (AUTO) 0.3 % (0.9-2.9); HEMATOCRIT 44.9 % (36.0-47.0); HEMOGLOBIN 14.5 g/dL (12.0-16.0); LYMPHOCYTES # (AUTO) 1.2 X10^3/uL (1.3-2.9); LYMPHOCYTES % (AUTO) 12.5 % (21.0-51.0); MEAN CORPUSCULAR HEMOGLOBIN 29.9 pg (27.0-34.0); MEAN CORPUSCULAR HGB CONC 32.4 g/dL (33.0-35.0); MEAN PLATELET VOLUME 9.2 fL (7.4-11.0); MONOCYTES # (AUTO) 0.8 x10^3/uL (0.3-0.8); NEUTROPHILS # (AUTO) 7.7 x10^3/uL (2.2-4.8); NEUTROPHILS % (AUTO) 78.2 % (42.0-75.0); PLATELET COUNT 236 X10^3/uL (150.0-450.0); RED BLOOD COUNT 4.87 X10^6/uL (3.5-5.4); RED CELL DISTRIBUTION WIDTH 15.7 % (11.6-16.5); WHITE BLOOD COUNT 9.8 X10^3/uL (3.6-10.0)
[2023-07-26 17:34] LABS: ALANINE AMINOTRANSFERASE 12 Units/L (12-78); ALBUMIN 3.5 g/dL (3.4-5.0); ALKALINE PHOSPHATASE 56 Units/L (46-116); BLOOD UREA NITROGEN 8 mg/dL (7-18); CHLORIDE 102 mmol/L (98-107); CREATININE 0.95 mg/dL (0.55-1.02); GLUCOSE 131 mg/dL (65-99); POTASSIUM 3.1 mmol/L (3.5-5.1); TOTAL PROTEIN 7.4 g/dL (6.4-8.2); eGFR NON BLACK RACES > 60 (>60)
[2023-07-26] MEDS ORDERED: SOLU-Medrol 125 MG VIAL ONE (17:44)
[2023-07-26] MEDS ORDERED: APRESOLINE INJ 20 MG VIAL ONE (17:44)
[2023-07-26 17:46] LABS: ASPARTATE AMINO TRANSFERASE 14 Units/L (15-37); CALCIUM 8.9 mg/dL (8.5-10.1); CARBON DIOXIDE 27.2 mmol/L (21-32); COR NA(FOR HYPERGLY) 141 mmol/L (136-145); SODIUM 140 mmol/L (136-145)
[2023-07-26] MEDS: APRESOLINE INJ 20 MG VIAL IVP ONE (17:49)
[2023-07-26] MEDS: SOLU-Medrol 125 MG VIAL IVP ONE (17:50)
[2023-07-26] MEDS: DUONEB 0.5 MG/3 MG (3 mL) NEB ONE ×2 (17:55→18:03)
[2023-07-26 19:07] LABS: ABG ALLEN TEST POS
[2023-07-26] MEDS ORDERED: ROCEPHIN VIAL 1 GRAM ONE (19:26)
[2023-07-26] MEDS: ROCEPHIN VIAL 1 GRAM IVP ONE (19:30)
[2023-07-26] MEDS ORDERED: K-DUR TAB 20 MEQ PO ONE (19:46)
[2023-07-26] MEDS: K-DUR TAB 20 MEQ PO SCH (19:50)
[2023-07-26] MEDS ORDERED: PULMICORT NEB TX 0.5 MG NEB ONE (20:56)
[2023-07-26] MEDS ORDERED: DUONEB 0.5 MG/3 MG (3 mL) NEB ONE (20:56)
[2023-07-26] MEDS: DUONEB 0.5 MG/3 MG (3 mL) NEB SCH ×2 (21:00→21:24)
[2023-07-26] MEDS: PULMICORT NEB TX 0.5 MG NEB SCH (21:00)
[2023-07-26] MEDS: XANAX PO SCH (22:00)
[2023-07-26] MEDS ORDERED: PATIENT'S HOME MEDICATION (Alprazolam 1 mg tablet) PO SCH (22:00)
[2023-07-26] MEDS ORDERED: ZESTRIL TAB 20 MG ONE (22:04)
[2023-07-26] MEDS: FLONASE NASAL SPRAY ENOSTRIL SCH (22:12)
[2023-07-26] MEDS: SOLU-Medrol 40 MG VIAL IVP SCH (22:12)
[2023-07-26] MEDS: DESYREL PO SCH (22:13)
[2023-07-26] MEDS: LOPRESSOR TAB 50 MG PO SCH (22:14)
[2023-07-26] MEDS: ZESTRIL TAB 20 MG PO SCH (22:14)
[2023-07-26] MEDS: ZANAFLEX PO PRN (22:15)
[2023-07-26] MEDS: NEURONTIN CAP 300 MG PO SCH (22:16)
[2023-07-26] MEDS: SNACK - Diabetic Appropriate PO SCH (22:17)
[2023-07-26] MEDS: NORCO 10/325 TAB PO PRN (22:19)
[2023-07-26] MEDS: CONSULT PHARMACY - POTASSIUM & MAGNESIUM XX SCH (22:20)
[2023-07-26] MEDS: MAG-OX TAB PO SCH (22:53)
[2023-07-26] MEDS: NovoLIN R (or HumuLIN R) SC PRN (22:54)
[2023-07-27] MEDS: K-DUR TAB 20 MEQ PO SCH (00:49)
[2023-07-27] MEDS ORDERED: DUONEB 0.5 MG/3 MG (3 mL) NEB SCH (01:00)
--- NOTE | 2023-07-27 05:06 | RAD ---
EXAM:CHEST, 1 VIEWHISTORY:Pt states her O2 "level is low, short of breath, feeling like I'm going to pass out";COMPARISON:03/18/2022FINDINGS:The trachea is midline. The cardiac silhouette is unremarkable . The lungs are clear without focal infiltrate or effusion. The bony thorax is unremarkable.IMPRESSION:No acute cardiopulmonary disease.THIS IS AN ELECTRONICALLY VERIFIED FINAL REPORT07/27/2023 5:03 AM - Electronically signed by Jer Davis MD
[2023-07-27 05:34] LABS: MEAN CORPUSCULAR HGB CONC 32.3 g/dL (33.0-35.0); MONOCYTES # (AUTO) 0.1 x10^3/uL (0.3-0.8); RED BLOOD COUNT 4.49 X10^6/uL (3.5-5.4); WHITE BLOOD COUNT 5.7 X10^3/uL (3.6-10.0)
[2023-07-27 05:41] LABS: BASOPHILS % (AUTO) 0.1 % (0.2-1.0); HEMATOCRIT 41.5 % (36.0-47.0); HEMOGLOBIN 13.4 g/dL (12.0-16.0); LYMPHOCYTES # (AUTO) 0.3 X10^3/uL (1.3-2.9); LYMPHOCYTES % (AUTO) 5.9 % (21.0-51.0); MEAN CORPUSCULAR HEMOGLOBIN 29.8 pg (27.0-34.0); MEAN CORPUSCULAR VOLUME 92.4 fL (80.0-100.0); MEAN PLATELET VOLUME 9.8 fL (7.4-11.0); MONOCYTES % (AUTO) 1.1 % (0.0-13.0); NEUTROPHILS # (AUTO) 5.3 x10^3/uL (2.2-4.8); NEUTROPHILS % (AUTO) 92.9 % (42.0-75.0); PLATELET COUNT 203 X10^3/uL (150.0-450.0); RED CELL DISTRIBUTION WIDTH 16.1 % (11.6-16.5)
[2023-07-27 05:43] LABS: ALBUMIN 2.8 g/dL (3.4-5.0); CALCIUM 8.3 mg/dL (8.5-10.1); CARBON DIOXIDE 29.1 mmol/L (21-32); COR CA(FOR HYPOALB) 9.3 mg/dL (8.5-10.1); CREATININE 1.21 mg/dL (0.55-1.02); POTASSIUM 4.1 mmol/L (3.5-5.1); TOTAL PROTEIN 6.4 g/dL (6.4-8.2)
[2023-07-27 05:56] LABS: BAND NEUTROPHILS % 1 % (0-10); PLATELET MORPHOLOGY COMMENT NORMAL (NORMAL)
[2023-07-27] MEDS ORDERED: PULMICORT NEB TX 0.5 MG NEB ONE (07:54)
[2023-07-27] MEDS ORDERED: ZESTRIL TAB 20 MG ONE ×2 (08:13→20:19)
[2023-07-27] MEDS: PROzac PO SCH (08:16)
[2023-07-27] MEDS: ALPRAZOLAM ODT PO SCH (08:16)
[2023-07-27] MEDS: PROTONIX TAB 40 MG PO SCH (08:16)
[2023-07-27] MEDS: CARDIZEM CD 120 MG 24-HR PO SCH (08:16)
[2023-07-27] MEDS: TRICOR TAB 160 MG PO SCH (08:16)
[2023-07-27] MEDS: AMARYL TAB 4 MG PO SCH (08:17)
[2023-07-27] MEDS: TRADJENTA PO SCH (08:26)
[2023-07-27] MEDS: PULMICORT NEB TX 0.5 MG NEB SCH (08:39)
[2023-07-27] MEDS ORDERED: DILTIAZEM HCL 120 MG PO SCH (09:00)
[2023-07-27] MEDS: MAG-OX TAB PO SCH (09:00)
[2023-07-27] MEDS ORDERED: FLUOXETINE 40 MG PO SCH (09:00)
[2023-07-27] MEDS ORDERED: MICRO K EXTEN CAP 10 MEQ PO SCH (09:00)
[2023-07-27] MEDS: LOVENOX INJ 40 MG SYR SC SCH (10:52)
--- NOTE | 2023-07-27 10:52 | DR.H&P ---
H&P History & Physical for Day of: H&P Date: 07/27/23 Chief Complaint Chief Complaint: Shortness of breath Cough, weakness Allergies Allergies Allergy/AdvReac Type Severity Reaction Status Date / Time No Known Drug Allergies Allergy Unknown Verified 07/26/23 16:34 [NKDA] History of Present Illness History of Present Illness: Pt is a 63 year old female, past medical history of COPD, Hypertension, Hyperlipidemia, DMT2, presenting with shortness of breath, cough, and weakness. Reports symptoms have been gradually getting worse over the past 2 weeks since she had COVID-19. She was seen in [facility] clinic and was noted to be hypoxic with pulse ox and instructed to go to ER. In the ER, she was worked up and started on supplemental oxygen. Labs/imaging: Wbc 5.7, Hgb 13.4, Plt 203, Na 141, K 3.1>4.1, Creatinine 1.21, Glucose 237, LA 0.9, Mag 1.5, BNP 244, Troponin negative, AIT pending, Blood cultures pending, CXR was obtained that revealed no acute cardiopulmonary findings. ABG: pH 7.45, pCO2 46, pO2 53, HCO3 32, O2sat 89% on FiO2 28. Pt was admitted for COPD exacerbation, Hypokalemia, and Hypomagnesium. Will order Echo due to elevated BNP and D-dimer due to hypoxia. She is requiring 2L supplemental oxygen. Pt is receiving IV Rocephin, IV Solumedrol 40mg q8h. Scheduled bronchodilators. Wean/titrate supplemental oxygen as tolerated. Replete electrolytes per protocol. Otherwise continue with current treatment plan. Continue to close monitor and follow up labs/imaging. Past Medical History Past Medical History: Anxiety, Arthritis, COPD, Depression, Diabetes, Dyslipidemia and Hypertension Past Surgical History Surgical History: Cholecystectomy and Other Family History Family Medical History: Diabetes Mellitus, Cancer and Hypertension Social History Does patient currently use any type of tobacco product: Yes Have you used tobacco products in the last 12 months: Yes Type of Tobacco Use: Cigarettes How many years tobacco product used: 10 Does any household member use tobacco: Yes Alcohol Use: Rarely Medications Home Medications: Home Medications Medication Instructions Recorded Confirmed Type insulin aspar prot-insulin aspart See Rx Instructions .Route .COMPLEX 07/26/23 07/26/23 History 100 unit/mL (70-30) subcutaneous pen (Novolog Mix 70-30FlexPen U-100) trazodone 150 mg tablet 300 mg PO QPM 07/26/23 07/26/23 History Labs 07/27/23 05:10 07/27/23 05:10 Labs: Laboratory WBC 5.7 X10^3/uL (3.6-10.0) 07/27/23 05:10 RBC 4.49 X10^6/uL (3.5-5.4) 07/27/23 05:10 Hgb 13.4 g/dL (12.0-16.0) 07/27/23 05:10 Hct 41.5 % (36.0-47.0) 07/27/23 05:10 MCV 92.4 fL (80.0-100.0) 07/27/23 05:10 MCH 29.8 pg (27.0-34.0) 07/27/23 05:10 MCHC 32.3 g/dL (33.0-35.0) L 07/27/23 05:10 RDW 16.1 % (11.6-16.5) 07/27/23 05:10 Plt Count 203 X10^3/uL (150.0-450.0) 07/27/23 05:10 Plt Count Comment Adequate (ADEQUATE) 07/27/23 05:10 MPV 9.8 fL (7.4-11.0) 07/27/23 05:10 Neut % (Auto) 92.9 % (42.0-75.0) H 07/27/23 05:10 Lymph % (Auto) 5.9 % (21.0-51.0) L 07/27/23 05:10 [place] % (Auto) 1.1 % (0.0-13.0) 07/27/23 05:10 Eos % (Auto) 0.0 % (0.9-2.9) L 07/27/23 05:10 Baso % (Auto) 0.1 % (0.2-1.0) L 07/27/23 05:10 Neut # (Auto) 5.3 x10^3/uL (2.2-4.8) H 07/27/23 05:10 Lymph # (Auto) 0.3 X10^3/uL (1.3-2.9) L 07/27/23 05:10 [place] # (Auto) 0.1 x10^3/uL (0.3-0.8) L 07/27/23 05:10 Eos # (Auto) 0.0 x10^3/uL (0.0-0.2) 07/27/23 05:10 Baso # (Auto) 0.0 X10^3/uL (0.0-0.1) 07/27/23 05:10 Absolute Nucleated RBC 0.1 /100WBC 07/27/23 05:10 Total Counted 100 07/27/23 05:10 Neutrophils % (Manual) 93 % (39-76) H 07/27/23 05:10 Band Neutrophils % 1 % (0-10) 07/27/23 05:10 Lymphocytes % (Manual) 5 % (13-43) L 07/27/23 05:10 Monocytes % (Manual) 1 % (4-9) L 07/27/23 05:10 Plt Morphology Comment Normal (NORMAL) 07/27/23 05:10 RBC Morphology Normal (NORMAL) 07/27/23 05:10 D-Dimer 0.55 ug/ml (0.0-0.57) 07/27/23 05:10 Sample Site Rr 07/26/23 18:52 ABG pH 7.450 (7.35-7.45) 07/26/23 18:52 ABG pCO2 46.0 mmHg (35.0-45.0) H 07/26/23 18:52 ABG pO2 53.0 mmHg (80.0-100.0) L 07/26/23 18:52 ABG HCO3 32.0 mmol/L (22-26) H* 07/26/23 18:52 ABG O2 Saturation 89.0 % (90-100) L 07/26/23 18:52 ABG Base Excess 7.0 mmol/L (-2.0-2.0) H 07/26/23 18:52 Rip Test Pos 07/26/23 18:52 A-a Gradient 89.0 mmHg 07/26/23 18:52 FiO2 28.0 07/26/23 18:52 Blood Gas Comments Jfef well sw 07/26/23 18:52 Sodium 141 mmol/L (136-145) 07/27/23 05:10 Corrected Sodium 144 mmol/L (136-145) 07/27/23 05:10 Potassium 4.1 mmol/L (3.5-5.1) 07/27/23 05:10 Chloride 105 mmol/L (98-107) 07/27/23 05:10 Carbon Dioxide 29.1 mmol/L (21-32) 07/27/23 05:10 BUN 11 mg/dL (7-18) 07/27/23 05:10 Creatinine 1.21 mg/dL (0.55-1.02) H 07/27/23 05:10 Est GFR (MDRD) Af Amer 58 (>60) L 07/27/23 05:10 Est GFR (MDRD) Non-Af 48 (>60) L 07/27/23 05:10 Glucose 237 mg/dL (65-99) H 07/27/23 05:10 POC Glucose (mg/dL) 255 mg/dL (65-99) H 07/27/23 05:37 Lactic Acid 0.9 mmol/L (0.4-2.0) 07/26/23 16:50 Calcium 8.3 mg/dL (8.5-10.1) L 07/27/23 05:10 Corrected Calcium 9.3 mg/dL (8.5-10.1) 07/27/23 05:10 Magnesium 1.5 mg/dL (2.0-2.9) L 07/27/23 05:10 Total Bilirubin 0.30 mg/dL (0.2-1.0) 07/27/23 05:10 AST 10 Units/L (15-37) L 07/27/23 05:10 ALT 13 Units/L (12-78) 07/27/23 05:10 Alkaline Phosphatase 46 Units/L (46-116) 07/27/23 05:10 Troponin I High Sens 8.0 ng/L (4.0-60.0) 07/26/23 16:58 B-Natriuretic Peptide 244 pg/mL (0-79) H 07/26/23 16:58 Total Protein 6.4 g/dL (6.4-8.2) 07/27/23 05:10 Albumin 2.8 g/dL (3.4-5.0) L 07/27/23 05:10 Globulin 3.6 g/dL (2.5-4.5) 07/27/23 05:10 Albumin/Globulin Ratio 0.8 Ratio (1.1-2.1) L 07/27/23 05:10 Review of Systems Constitutional: Weakness Eyes: No Symptoms Reported ENT: No Symptoms Reported Respiratory: Cough and Shortness of Breath Cardiovascular: No Symptoms Reported Gastrointestinal: No Symptoms Reported Genitourinary: No Symptoms Reported Musculoskeletal: No Symptoms Reported Skin: No Symptoms Reported Neurological: No Symptoms Reported Physical Exam Vital Signs: Vital Signs Temperature 97.4 F Temperature 98.5 F Pulse Rate [Brachial] 82 Pulse Rate [Brachial] 61 Pulse Rate 84 Respiratory Rate 19 Respiratory Rate 19 Respiratory Rate 18 Respiratory Rate 20 Blood Pressure [Left Arm] 173/84 Blood Pressure [Left Arm] 106/61 O2 Sat by Pulse Oximetry 94 O2 Sat by Pulse Oximetry 90 O2 Sat by Pulse Oximetry 94 Oriented: Normal Eyes: Normal Ear: Normal Nose: Normal Throat: Normal Respiratory: Diminished Throughout and Wheezes Throughout (end expiratory) Cardiovascular: Normal : Normal Auscultation: Bowel Sounds: Normal Palpation: Normal Tenderness: Normal Skin: Normal Musculoskeletal: Normal Psychiatric: Normal Mood Description: Calm and Appropriate Affect: Normal Speech Pattern: Clear and Appropriate Assessment/Plan (1) COPD exacerbation: Narrative Support Text: Status: Acute Plan: IV steroids, IV rocephin Scheduled bronchodilators, supplemental oxygen (2) Hypoxia: Status: Acute (3) Hypokalemia: Status: Acute (4) Hypomagnesemia: Status: Acute Review H&P Reviewed: Yes Patient was examined?: Yes
[2023-07-27 14:54] LABS: BILIRUBIN,URINE NEGATIVE (NEGATIVE); BLOOD/HEMOGLOBIN,URINE NEGATIVE (NEGATIVE); GLUCOSE, URINE NEGATIVE (NEGATIVE); KETONES,URINE NEGATIVE (NEGATIVE); LEUKOCYTE ESTERASE ,URINE 2+ (NEGATIVE); NITRITES,URINE NEGATIVE (NEGATIVE); PROTEIN,URINE 2+ (NEGATIVE); UROBILINOGEN,URINE NORMAL (NORMAL)
[2023-07-27 15:01] LABS: APPEARANCE,URINE SLIGHTLY HAZY (CLEAR); COLOR,URINE YELLOW (YELLOW)
[2023-07-27 15:02] LABS: BACTERIA,URINE 2+ /HPF (NEGATIVE); RBC,URINE 0-2 /HPF (0-3); SQUAMOUS EPITHELIAL CELL,UR NUMEROUS /HPF (NEGATIVE)
[2023-07-27] MEDS ORDERED: NS 100 ML IV 100 ML ONE (22:47)
[2023-07-27] MEDS: ROCEPHIN VIAL 1 GRAM 1 G in NS 100 ML IV 100 ML IV SCH (22:55)
[2023-07-28 05:53] LABS: BASOPHILS % (AUTO) 0.1 % (0.2-1.0); HEMATOCRIT 40.5 % (36.0-47.0); HEMOGLOBIN 12.9 g/dL (12.0-16.0); LYMPHOCYTES # (AUTO) 0.4 X10^3/uL (1.3-2.9); LYMPHOCYTES % (AUTO) 3.5 % (21.0-51.0); MEAN CORPUSCULAR HEMOGLOBIN 29.4 pg (27.0-34.0); MEAN CORPUSCULAR HGB CONC 31.8 g/dL (33.0-35.0); MEAN CORPUSCULAR VOLUME 92.3 fL (80.0-100.0); MEAN PLATELET VOLUME 9.7 fL (7.4-11.0); MONOCYTES # (AUTO) 0.2 x10^3/uL (0.3-0.8); MONOCYTES % (AUTO) 1.9 % (0.0-13.0); NEUTROPHILS # (AUTO) 12.2 x10^3/uL (2.2-4.8); NEUTROPHILS % (AUTO) 94.5 % (42.0-75.0); PLATELET COUNT 208 X10^3/uL (150.0-450.0); RED BLOOD COUNT 4.39 X10^6/uL (3.5-5.4); WHITE BLOOD COUNT 12.9 X10^3/uL (3.6-10.0)
[2023-07-28 06:07] LABS: ALBUMIN 2.8 g/dL (3.4-5.0); CALCIUM 8.3 mg/dL (8.5-10.1); CARBON DIOXIDE 29.8 mmol/L (21-32); COR CA(FOR HYPOALB) 9.3 mg/dL (8.5-10.1); CREATININE 1.18 mg/dL (0.55-1.02); POTASSIUM 4.6 mmol/L (3.5-5.1); TOTAL PROTEIN 6.4 g/dL (6.4-8.2)
[2023-07-28 06:13] LABS: PLATELET MORPHOLOGY COMMENT NORMAL (NORMAL)
--- NOTE | 2023-07-28 06:34 | RAD ---
EXAM: CHEST, 1 VIEW HISTORY: SOB; HTN, DM, COPD, PTSD SX: ASHELY, HYST, JOINT REPLACEMENT COMPARISON: July 26, 2023 TECHNIQUE: Portable chest radiograph FINDINGS: Heart size is stable. There is no mediastinal widening. There is mild accentuation of the central b ronchovascular lung markings with peribronchial cuffing and mild cephalization of flow. The lungs ap pear equally expanded mildly hyperinflated overall, with no densely organized airspace consolidation, though there are streaky subsegmental opacities within the medial lung and peripheral aspect of the lingula representing atelectasis or pneumonia in the appropriate setting. The pleural spaces remain clear. There is no radiographic evidence of free air or pneumothorax. No acute osseous abnormalitie s of the chest are identified. IMPRESSION: Accentuation of the central bronchovascular lung markings with peribronchial cuffing and streaky subs egmental bibasilar opacities. The findings may be associated with early central vascular congestion and/or bronchial inflammation Streaky subsegmental opacities may be associated with atelectasis or pneumonia in the appropriate set ting. Mild pulmonary hyperinflation may be associated with COPD. Clinical correlation and routine radiographic follow-up are recommended. THIS IS AN ELECTRONICALLY VERIFIED FINAL REPORT 07/28/2023 6:31 AM - Electronically signed by Ricky Tang MD
[2023-07-28] MEDS: ZESTRIL TAB 20 MG ONE ×2 (08:55→20:28)
--- NOTE | 2023-07-28 09:22 | PCM.PROG ---
Progress Note Progress Note for Day of Date of Exam: 07/28/23 Subjective Subjective: Pt is a 63 year old female, past medical history of COPD, Hypertension, Hyperlipidemia, DMT2, admitted for COPD exacerbation and electrolyte abnormalities. This morning she is resting in bed. No acute events overnight. She reports feeling better. Labs/imaging: Wbc 12.9, Hgb 12.9, Plt 208, Na 140, K 4.6, Creatinine 1.18, Glucose 211, AIT pending, Blood cultures NGTD, Echo: EF 54%, CXR was obtained that revealed: Accentuation of the central bronchovascular lung markings with peribronchial cuffing and streaky subsegmental bibasilar opacities. The findings may be associated with early bud tral vascular congestion and/or bronchial inflammation. Streaky subsegmental opacities may be associated with atelectasis or pneumonia in the appropriate setting. Mild pulmonary hyperinflation may be associated with COPD. Has some mild edema in lower extremities. Will give IV lasix 40mg x 1 dose. She is requiring 3L supplemental oxygen. Pt is receiving IV Rocephin, IV Solumedrol 40mg q8h. Scheduled bronchodilators. Wean/titrate supplemental oxygen as tolerated. Pt appears sleepy on exam, will decrease norco and xanax. Otherwise, continue with current treatment plan. Continue to close monitor and follow up labs/imaging. Past Medical Family Social History Allergies: Allergies No Known Drug Allergies [NKDA] Allergy (Unknown, Verified 07/26/23 16:34) Onset Date: 11/01/2012 Review of Systems ROS changes noted: see HPI Vital Signs and I&O's Vital Signs: Vital Signs Temperature 97.7 F Temperature 98.1 F Pulse Rate [Brachial] 65 Pulse Rate [Brachial] 69 Respiratory Rate 18 Respiratory Rate 20 Blood Pressure [Left Arm] 131/64 Blood Pressure [Left Arm] 133/70 O2 Sat by Pulse Oximetry 93 O2 Sat by Pulse Oximetry 97 O2 Sat by Pulse Oximetry 93 Intake and Output: Intake & Output 07/25/23 07/26/23 07/27/23 07/28/23 23:59 23:59 23:59 23:59 Intake Total 400 / 400 1482 / 1482 235 / 235 Output Total 300 / 300 1000 / 1000 Balance 400 / 400 1182 / 1182 -765 / -765 Physical Exam Oriented: Normal Eyes: Normal Ear: Normal Nose: Normal Throat: Normal Respiratory: Diminished Cardiovascular: Normal : Normal Auscultation: Bowel Sounds: Normal Tenderness: Normal Skin: Normal Musculoskeletal: Normal Psychiatric: Normal Mood Description: Calm and Appropriate Affect: Normal Speech Pattern: Clear and Appropriate Laboratory and Diagnostics 07/28/23 05:15 07/28/23 05:15 Labs: Laboratory WBC 12.9 X10^3/uL (3.6-10.0) H 07/28/23 05:15 RBC 4.39 X10^6/uL (3.5-5.4) 07/28/23 05:15 Hgb 12.9 g/dL (12.0-16.0) 07/28/23 05:15 Hct 40.5 % (36.0-47.0) 07/28/23 05:15 MCV 92.3 fL (80.0-100.0) 07/28/23 05:15 MCH 29.4 pg (27.0-34.0) 07/28/23 05:15 MCHC 31.8 g/dL (33.0-35.0) L 07/28/23 05:15 RDW 16.0 % (11.6-16.5) 07/28/23 05:15 Plt Count 208 X10^3/uL (150.0-450.0) 07/28/23 05:15 Plt Count Comment Adequate (ADEQUATE) 07/28/23 05:15 MPV 9.7 fL (7.4-11.0) 07/28/23 05:15 Neut % (Auto) 94.5 % (42.0-75.0) H 07/28/23 05:15 Lymph % (Auto) 3.5 % (21.0-51.0) L 07/28/23 05:15 [place] % (Auto) 1.9 % (0.0-13.0) 07/28/23 05:15 Eos % (Auto) 0.0 % (0.9-2.9) L 07/28/23 05:15 Baso % (Auto) 0.1 % (0.2-1.0) L 07/28/23 05:15 Neut # (Auto) 12.2 x10^3/uL (2.2-4.8) H 07/28/23 05:15 Lymph # (Auto) 0.4 X10^3/uL (1.3-2.9) L 07/28/23 05:15 [place] # (Auto) 0.2 x10^3/uL (0.3-0.8) L 07/28/23 05:15 Eos # (Auto) 0.0 x10^3/uL (0.0-0.2) 07/28/23 05:15 Baso # (Auto) 0.0 X10^3/uL (0.0-0.1) 07/28/23 05:15 Absolute Nucleated RBC 0.0 /100WBC 07/28/23 05:15 Total Counted 100 07/28/23 05:15 Neutrophils % (Manual) 95 % (39-76) H 07/28/23 05:15 Band Neutrophils % 1 % (0-10) 07/27/23 05:10 Lymphocytes % (Manual) 4 % (13-43) L 07/28/23 05:15 Monocytes % (Manual) 1 % (4-9) L 07/28/23 05:15 Plt Morphology Comment Normal (NORMAL) 07/28/23 05:15 RBC Morphology Normal (NORMAL) 07/28/23 05:15 D-Dimer 0.55 ug/ml (0.0-0.57) 07/27/23 05:10 Sample Site Rr 07/26/23 18:52 ABG pH 7.450 (7.35-7.45) 07/26/23 18:52 ABG pCO2 46.0 mmHg (35.0-45.0) H 07/26/23 18:52 ABG pO2 53.0 mmHg (80.0-100.0) L 07/26/23 18:52 ABG HCO3 32.0 mmol/L (22-26) H* 07/26/23 18:52 ABG O2 Saturation 89.0 % (90-100) L 07/26/23 18:52 ABG Base Excess 7.0 mmol/L (-2.0-2.0) H 07/26/23 18:52 Rip Test Pos 07/26/23 18:52 A-a Gradient 89.0 mmHg 07/26/23 18:52 FiO2 28.0 07/26/23 18:52 Blood Gas Comments Jeff well sw 07/26/23 18:52 Sodium 140 mmol/L (136-145) 07/28/23 05:15 Corrected Sodium 143 mmol/L (136-145) 07/28/23 05:15 Potassium 4.6 mmol/L (3.5-5.1) 07/28/23 05:15 Chloride 104 mmol/L (98-107) 07/28/23 05:15 Carbon Dioxide 29.8 mmol/L (21-32) 07/28/23 05:15 BUN 21 mg/dL (7-18) H 07/28/23 05:15 Creatinine 1.18 mg/dL (0.55-1.02) H 07/28/23 05:15 Est GFR (MDRD) Af Amer 60 (>60) 07/28/23 05:15 Est GFR (MDRD) Non-Af 49 (>60) L 07/28/23 05:15 Glucose 211 mg/dL (65-99) H 07/28/23 05:15 POC Glucose (mg/dL) 206 mg/dL (65-99) H 07/28/23 05:47 Lactic Acid 0.9 mmol/L (0.4-2.0) 07/26/23 16:50 Calcium 8.3 mg/dL (8.5-10.1) L 07/28/23 05:15 Corrected Calcium 9.3 mg/dL (8.5-10.1) 07/28/23 05:15 Magnesium 1.8 mg/dL (2.0-2.9) L 07/28/23 05:15 Total Bilirubin 0.20 mg/dL (0.2-1.0) 07/28/23 05:15 AST 10 Units/L (15-37) L 07/28/23 05:15 ALT 12 Units/L (12-78) 07/28/23 05:15 Alkaline Phosphatase 45 Units/L (46-116) L 07/28/23 05:15 Troponin I High Sens 8.0 ng/L (4.0-60.0) 07/26/23 16:58 B-Natriuretic Peptide 244 pg/mL (0-79) H 07/26/23 16:58 Total Protein 6.4 g/dL (6.4-8.2) 07/28/23 05:15 Albumin 2.8 g/dL (3.4-5.0) L 07/28/23 05:15 Globulin 3.6 g/dL (2.5-4.5) 07/28/23 05:15 Albumin/Globulin Ratio 0.8 Ratio (1.1-2.1) L 07/28/23 05:15 Specimen Type Clean catch urine 07/27/23 14:30 Urine Color Yellow (YELLOW) 07/27/23 14:30 Urine Appearance Slightly hazy (CLEAR) 07/27/23 14:30 Urine pH 6.0 (5.0 - 8.0) 07/27/23 14:30 Ur Specific [place] 1.015 (1.000-1.030) 07/27/23 14:30 Urine Protein 2+ (NEGATIVE) 07/27/23 14:30 Urine Glucose (UA) Negative (NEGATIVE) 07/27/23 14:30 Urine Ketones Negative (NEGATIVE) 07/27/23 14:30 Urine Blood Negative (NEGATIVE) 07/27/23 14:30 Urine Nitrite Negative (NEGATIVE) 07/27/23 14:30 Urine Bilirubin Negative (NEGATIVE) 07/27/23 14:30 Urine Urobilinogen Normal (NORMAL) 07/27/23 14:30 Ur Leukocyte Esterase 2+ (NEGATIVE) 07/27/23 14:30 Urine RBC 0-2 /HPF (0-3) 07/27/23 14:30 Urine WBC 5-10 /HPF (0-5) A 07/27/23 14:30 Ur Squamous Epith Cells Numerous /HPF (NEGATIVE) 07/27/23 14:30 Urine Bacteria 2+ /HPF (NEGATIVE) 07/27/23 14:30 Ur Culture Indicated? Yes/culture set up 07/27/23 14:30 Plan (1) COPD exacerbation: Status: Acute Plan: IV steroids, IV rocephin Scheduled bronchodilators, supplemental oxygen (2) Hypoxia: Status: Acute (3) Hypokalemia: Status: Acute (4) Hypomagnesemia: Status: Acute
[2023-07-28] MEDS: LASIX IVP ONE (10:29)
[2023-07-28] MEDS: ALPRAZOLAM ODT PO PRN (23:18)
[2023-07-28] MEDS: NORCO 10/325 TAB PO PRN (23:19)
[2023-07-29 05:40] LABS: BASOPHILS % (AUTO) 0.1 % (0.2-1.0); HEMATOCRIT 40.7 % (36.0-47.0); LYMPHOCYTES # (AUTO) 0.2 X10^3/uL (1.3-2.9); LYMPHOCYTES % (AUTO) 1.6 % (21.0-51.0); MEAN CORPUSCULAR HEMOGLOBIN 29.5 pg (27.0-34.0); MEAN CORPUSCULAR VOLUME 92.1 fL (80.0-100.0); MONOCYTES # (AUTO) 0.3 x10^3/uL (0.3-0.8); MONOCYTES % (AUTO) 2.9 % (0.0-13.0); NEUTROPHILS # (AUTO) 10.8 x10^3/uL (2.2-4.8); NEUTROPHILS % (AUTO) 95.4 % (42.0-75.0); PLATELET COUNT 206 X10^3/uL (150.0-450.0); RED BLOOD COUNT 4.42 X10^6/uL (3.5-5.4); RED CELL DISTRIBUTION WIDTH 15.6 % (11.6-16.5); WHITE BLOOD COUNT 11.3 X10^3/uL (3.6-10.0)
[2023-07-29 05:51] LABS: ALBUMIN 2.6 g/dL (3.4-5.0); CARBON DIOXIDE 33.9 mmol/L (21-32); COR CA(FOR HYPOALB) 9.1 mg/dL (8.5-10.1); CREATININE 1.2 mg/dL (0.55-1.02); TOTAL PROTEIN 6.1 g/dL (6.4-8.2)
[2023-07-29 06:05] LABS: PLATELET MORPHOLOGY COMMENT NORMAL (NORMAL)
[2023-07-29] MEDS ORDERED: CONSULT PHARMACY - POTASSIUM & MAGNESIUM XX SCH (07:00)
[2023-07-29] MEDS: ZESTRIL TAB 20 MG ONE ×2 (08:41→20:41)
[2023-07-29] MEDS: MAG-OX TAB PO SCH (10:27)
[2023-07-29] MEDS: COLACE CAP 100 MG PO PRN (11:14)
[2023-07-29] MEDS: LEVAQUIN PREMIX IV 750 MG 750 MG/150 ML BAG IV SCH (11:14)
[2023-07-30 05:37] LABS: BASOPHILS % (AUTO) 0.2 % (0.2-1.0); EOSINOPHILS % (AUTO) 0.1 % (0.9-2.9); HEMATOCRIT 43.2 % (36.0-47.0); LYMPHOCYTES # (AUTO) 1.1 X10^3/uL (1.3-2.9); LYMPHOCYTES % (AUTO) 10.1 % (21.0-51.0); MEAN CORPUSCULAR HEMOGLOBIN 29.5 pg (27.0-34.0); MEAN CORPUSCULAR HGB CONC 32.4 g/dL (33.0-35.0); MEAN PLATELET VOLUME 9.8 fL (7.4-11.0); MONOCYTES # (AUTO) 1.1 x10^3/uL (0.3-0.8); MONOCYTES % (AUTO) 9.5 % (0.0-13.0); NEUTROPHILS # (AUTO) 9.1 x10^3/uL (2.2-4.8); NEUTROPHILS % (AUTO) 80.1 % (42.0-75.0); PLATELET COUNT 183 X10^3/uL (150.0-450.0); RED BLOOD COUNT 4.74 X10^6/uL (3.5-5.4); RED CELL DISTRIBUTION WIDTH 15.5 % (11.6-16.5); WHITE BLOOD COUNT 11.4 X10^3/uL (3.6-10.0)
[2023-07-30 05:50] LABS: ALANINE AMINOTRANSFERASE 9 Units/L (12-78); ALBUMIN 2.7 g/dL (3.4-5.0); ALKALINE PHOSPHATASE 40 Units/L (46-116); ASPARTATE AMINO TRANSFERASE 12 Units/L (15-37); BLOOD UREA NITROGEN 28 mg/dL (7-18); CALCIUM 8.3 mg/dL (8.5-10.1); CARBON DIOXIDE 34.8 mmol/L (21-32); CHLORIDE 103 mmol/L (98-107); COR CA(FOR HYPOALB) 9.3 mg/dL (8.5-10.1); CREATININE 1.21 mg/dL (0.55-1.02); GLUCOSE 70 mg/dL (65-99); MAGNESIUM 1.9 mg/dL (2.0-2.9); POTASSIUM 4.6 mmol/L (3.5-5.1); SODIUM 143 mmol/L (136-145); eGFR NON BLACK RACES 48 (>60)
--- NOTE | 2023-07-30 06:50 | RAD ---
EXAM: AP chest HISTORY: COPD hypoxia COMPARISON: 07/28/2023 FINDINGS: Heart size is similar and normal. Mild chronic interstitial coarsening as before without evidence f or developing airspace consolidation/pneumonia, zheng CHF or pleural effusion. IMPRESSION: No change. THIS IS AN ELECTRONICALLY VERIFIED FINAL REPORT 07/30/2023 6:46 AM - Electronically signed by Lloyd Do MD
[2023-07-30] MEDS ORDERED: CONSULT PHARMACY - POTASSIUM & MAGNESIUM XX SCH (07:00)
[2023-07-30] MEDS: ZESTRIL TAB 20 MG ONE ×2 (08:38→20:47)
[2023-07-30] MEDS: MAG-OX TAB PO SCH (10:54)
[2023-07-30] MEDS: LR 1,000 ML IV 1,000 ML IV SCH (12:33)
[2023-07-30 23:53] VITALS: RESP 20
[2023-07-31 04:18] VITALS: TEMP 97.9
[2023-07-31 05:06] LABS: BASOPHILS % (AUTO) 0.2 % (0.2-1.0); EOSINOPHILS # (AUTO) 0.1 x10^3/uL (0.0-0.2); EOSINOPHILS % (AUTO) 1.3 % (0.9-2.9); HEMATOCRIT 41.2 % (36.0-47.0); LYMPHOCYTES # (AUTO) 1.2 X10^3/uL (1.3-2.9); LYMPHOCYTES % (AUTO) 16.2 % (21.0-51.0); MEAN CORPUSCULAR HEMOGLOBIN 29.1 pg (27.0-34.0); MEAN CORPUSCULAR HGB CONC 31.7 g/dL (33.0-35.0); MEAN CORPUSCULAR VOLUME 91.8 fL (80.0-100.0); MEAN PLATELET VOLUME 9.4 fL (7.4-11.0); MONOCYTES # (AUTO) 0.8 x10^3/uL (0.3-0.8); MONOCYTES % (AUTO) 11.1 % (0.0-13.0); NEUTROPHILS # (AUTO) 5.2 x10^3/uL (2.2-4.8); NEUTROPHILS % (AUTO) 71.2 % (42.0-75.0); PLATELET COUNT 173 X10^3/uL (150.0-450.0); RED BLOOD COUNT 4.49 X10^6/uL (3.5-5.4); RED CELL DISTRIBUTION WIDTH 15.2 % (11.6-16.5); WHITE BLOOD COUNT 7.4 X10^3/uL (3.6-10.0)
[2023-07-31 05:25] LABS: ALANINE AMINOTRANSFERASE 10 Units/L (12-78); ALBUMIN 2.4 g/dL (3.4-5.0); ALKALINE PHOSPHATASE 37 Units/L (46-116); ASPARTATE AMINO TRANSFERASE 10 Units/L (15-37); BLOOD UREA NITROGEN 22 mg/dL (7-18); CALCIUM 8.3 mg/dL (8.5-10.1); CARBON DIOXIDE 39.7 mmol/L (21-32); CHLORIDE 104 mmol/L (98-107); COR CA(FOR HYPOALB) 9.6 mg/dL (8.5-10.1); CREATININE 0.99 mg/dL (0.55-1.02); GLUCOSE 80 mg/dL (65-99); MAGNESIUM 1.8 mg/dL (2.0-2.9); POTASSIUM 4.9 mmol/L (3.5-5.1); SODIUM 142 mmol/L (136-145); TOTAL PROTEIN 5.4 g/dL (6.4-8.2); eGFR NON BLACK RACES > 60 (>60)
[2023-07-31] MEDS ORDERED: CONSULT PHARMACY - POTASSIUM & MAGNESIUM XX SCH (06:00)
[2023-07-31 07:25] VITALS: BP 152/78; PULSE 76; O2SAT 94
[2023-07-31] MEDS ORDERED: ZESTRIL TAB 20 MG ONE (08:07)
[2023-07-31] MEDS: MAG-OX TAB PO SCH (09:47)
--- NOTE | 2023-08-01 16:05 | W.DIS.FURT ---
Summary of Discharge Discharge Summary of Date Date of Exam: 07/31/23 Admission Date Date of Admission: 07/26/23 Admission Diagnosis Patient Problems (Updated 07/27/23 @ 10:50 by Van Lamas) COPD exacerbation (Acute) J44.1 Hypoxia (Acute) R09.02 Hospital Course: Pt is a 63 year old female, past medical history of COPD, Hypertension, Hyperlipidemia, DMT2, presenting with shortness of breath, cough, and weakness. Reports symptoms have been gradually getting worse over the past 2 weeks since she had COVID-19. She was seen in [facility] clinic and was noted to be hypoxic with pulse ox and instructed to go to ER. In the ER, she was worked up and started on supplemental oxygen. Labs/imaging: Wbc 5.7, Hgb 13.4, Plt 203, Na 141, K 3.1>4.1, Creatinine 1.21, Glucose 237, LA 0.9, Mag 1.5, BNP 244, Troponin negative, AIT pending, Blood cultures pending, CXR was obtained that revealed no acute cardiopulmonary findings. ABG: pH 7.45, pCO2 46, pO2 53, HCO3 32, O2sat 89% on FiO2 28. Pt was admitted for COPD exacerbation, Hypokalemia, and Hypomagnesium. Will order Echo due to elevated BNP and D-dimer due to hypoxia. She is requiring 2L supplemental oxygen. Pt is receiving IV Rocephin, IV Solumedrol 40mg q8h. Scheduled bronchodilators. Wean/titrate supplemental oxygen as tolerated. Replete electrolytes per protocol. Otherwise continue with current treatment plan. Continue to close monitor and follow up labs/imaging. Vital Signs: Vital Signs (72 hours) 07/28/23 12:00 07/28/23 15:53 07/28/23 19:00 Temperature 97.1 F L 98.1 F Pulse Rate Pulse Rate [Brachial] 73 73 Respiratory Rate 18 18 Blood Pressure [Left Arm] 141/62 144/66 Blood Pressure [Right Arm] O2 Sat by Pulse Oximetry 93 L 91 L Oxygen Delivery Method Nasal Cannula Nasal Cannula Nasal Cannula Oxygen Flow Rate 2 2 2 FIO2% 07/28/23 19:37 07/28/23 23:19 07/28/23 20:20 Temperature 97.8 F Pulse Rate Pulse Rate [Brachial] 81 Respiratory Rate 18 18 Blood Pressure [Left Arm] 130/59 Blood Pressure [Right Arm] O2 Sat by Pulse Oximetry 94 L Oxygen Delivery Method Nasal Cannula Nasal Cannula Oxygen Flow Rate 2 3 FIO2% 28 32 07/28/23 20:20 07/29/23 00:00 07/29/23 00:19 Temperature 97.8 F Pulse Rate 75 Pulse Rate [Brachial] 83 Respiratory Rate 14 18 Blood Pressure [Left Arm] 132/63 Blood Pressure [Right Arm] O2 Sat by Pulse Oximetry 94 L 92 L Oxygen Delivery Method Nasal Cannula Oxygen Flow Rate 2 FIO2% 28 07/29/23 04:00 07/29/23 08:28 07/29/23 08:29 Temperature 98.3 F Pulse Rate 64 Pulse Rate [Brachial] 75 Respiratory Rate 16 Blood Pressure [Left Arm] 132/67 Blood Pressure [Right Arm] O2 Sat by Pulse Oximetry 93 L 97 Oxygen Delivery Method Nasal Cannula Nasal Cannula Oxygen Flow Rate 2 3 FIO2% 32 07/29/23 07:00 07/29/23 15:54 07/29/23 08:00 Temperature 100.1 F H 98.1 F Pulse Rate Pulse Rate [Brachial] 76 65 Respiratory Rate 22 20 Blood Pressure [Left Arm] Blood Pressure [Right Arm] 137/65 133/75 O2 Sat by Pulse Oximetry 94 L 92 L Oxygen Delivery Method Nasal Cannula Nasal Cannula Nasal Cannula Oxygen Flow Rate 2 2 2 FIO2% 07/29/23 12:00 07/29/23 14:20 07/29/23 15:20 Temperature 98.6 F Pulse Rate Pulse Rate [Brachial] 75 Respiratory Rate 22 18 18 Blood Pressure [Left Arm] Blood Pressure [Right Arm] 145/78 O2 Sat by Pulse Oximetry 93 L Oxygen Delivery Method Nasal Cannula Oxygen Flow Rate 2 FIO2% 07/29/23 19:00 07/29/23 20:00 07/29/23 05:30 Temperature 98.4 F Pulse Rate Pulse Rate [Brachial] 73 Respiratory Rate 20 Blood Pressure [Left Arm] Blood Pressure [Right Arm] 144/77 O2 Sat by Pulse Oximetry 93 L Oxygen Delivery Method Nasal Cannula Nasal Cannula Nasal Cannula Oxygen Flow Rate 2 2 3 FIO2% 32 07/29/23 23:42 07/30/23 04:00 07/30/23 05:48 Temperature 98.1 F 98.7 F Pulse Rate 68 Pulse Rate [Brachial] 71 67 Respiratory Rate 20 20 Blood Pressure [Left Arm] Blood Pressure [Right Arm] 121/79 164/89 O2 Sat by Pulse Oximetry 99 92 L 97 Oxygen Delivery Method Nasal Cannula Nasal Cannula Oxygen Flow Rate 2 2 FIO2% 07/29/23 21:00 07/29/23 21:10 07/30/23 07:47 Temperature 97.6 F Pulse Rate Pulse Rate [Brachial] 69 Respiratory Rate 18 Blood Pressure [Left Arm] Blood Pressure [Right Arm] 135/78 O2 Sat by Pulse Oximetry 94 L Oxygen Delivery Method Nasal Cannula Nasal Cannula Nasal Cannula Oxygen Flow Rate 3 3 2 FIO2% 32 32 07/30/23 07:00 07/30/23 08:45 07/30/23 08:46 Temperature Pulse Rate 71 Pulse Rate [Brachial] Respiratory Rate Blood Pressure [Left Arm] Blood Pressure [Right Arm] O2 Sat by Pulse Oximetry 95 Oxygen Delivery Method Nasal Cannula Nasal Cannula Oxygen Flow Rate 2 3 FIO2% 32 07/30/23 12:00 07/30/23 16:00 07/30/23 14:35 Temperature 98.6 F 98.3 F Pulse Rate Pulse Rate [Brachial] 74 68 Respiratory Rate 20 20 18 Blood Pressure [Left Arm] Blood Pressure [Right Arm] 145/81 149/79 O2 Sat by Pulse Oximetry 96 94 L Oxygen Delivery Method Nasal Cannula Nasal Cannula Oxygen Flow Rate 2 2 FIO2% 07/30/23 15:35 07/30/23 20:45 07/30/23 19:00 Temperature Pulse Rate Pulse Rate [Brachial] Respiratory Rate 18 18 Blood Pressure [Left Arm] Blood Pressure [Right Arm] O2 Sat by Pulse Oximetry Oxygen Delivery Method Nasal Cannula Oxygen Flow Rate 2 FIO2% 07/30/23 20:00 07/30/23 21:17 07/30/23 21:17 Temperature 98.5 F Pulse Rate 70 Pulse Rate [Brachial] 76 Respiratory Rate 20 Blood Pressure [Left Arm] Blood Pressure [Right Arm] 166/82 O2 Sat by Pulse Oximetry 96 96 Oxygen Delivery Method Nasal Cannula Nasal Cannula Oxygen Flow Rate 2 3 FIO2% 32 07/30/23 21:45 07/30/23 23:52 07/31/23 04:00 Temperature 98.1 F 97.9 F Pulse Rate Pulse Rate [Brachial] 89 65 Respiratory Rate 18 20 20 Blood Pressure [Left Arm] Blood Pressure [Right Arm] 131/72 136/76 O2 Sat by Pulse Oximetry 95 95 Oxygen Delivery Method Nasal Cannula Nasal Cannula Oxygen Flow Rate 2 2 FIO2% 07/31/23 07:24 07/31/23 07:00 Temperature 97.9 F Pulse Rate Pulse Rate [Brachial] 76 Respiratory Rate 20 Blood Pressure [Left Arm] Blood Pressure [Right Arm] 152/78 O2 Sat by Pulse Oximetry 94 L Oxygen Delivery Method Nasal Cannula Nasal Cannula Oxygen Flow Rate 2 2 FIO2% Labs: Laboratory Last Values WBC 7.4 X10^3/uL (3.6-10.0) 07/31/23 04:35 RBC 4.49 X10^6/uL (3.5-5.4) 07/31/23 04:35 Hgb 13.0 g/dL (12.0-16.0) 07/31/23 04:35 Hct 41.2 % (36.0-47.0) 07/31/23 04:35 MCV 91.8 fL (80.0-100.0) 07/31/23 04:35 MCH 29.1 pg (27.0-34.0) 07/31/23 04:35 MCHC 31.7 g/dL (33.0-35.0) L 07/31/23 04:35 RDW 15.2 % (11.6-16.5) 07/31/23 04:35 Plt Count 173 X10^3/uL (150.0-450.0) 07/31/23 04:35 Plt Count Comment Adequate (ADEQUATE) 07/29/23 04:44 MPV 9.4 fL (7.4-11.0) 07/31/23 04:35 Neut % (Auto) 71.2 % (42.0-75.0) 07/31/23 04:35 Lymph % (Auto) 16.2 % (21.0-51.0) L 07/31/23 04:35 [place] % (Auto) 11.1 % (0.0-13.0) 07/31/23 04:35 Eos % (Auto) 1.3 % (0.9-2.9) 07/31/23 04:35 Baso % (Auto) 0.2 % (0.2-1.0) 07/31/23 04:35 Neut # (Auto) 5.2 x10^3/uL (2.2-4.8) H 07/31/23 04:35 Lymph # (Auto) 1.2 X10^3/uL (1.3-2.9) L 07/31/23 04:35 [place] # (Auto) 0.8 x10^3/uL (0.3-0.8) 07/31/23 04:35 Eos # (Auto) 0.1 x10^3/uL (0.0-0.2) 07/31/23 04:35 Baso # (Auto) 0.0 X10^3/uL (0.0-0.1) 07/31/23 04:35 Absolute Nucleated RBC 0.0 /100WBC 07/31/23 04:35 Total Counted 100 07/29/23 04:44 Neutrophils % (Manual) 93 % (39-76) H 07/29/23 04:44 Band Neutrophils % 1 % (0-10) 07/27/23 05:10 Lymphocytes % (Manual) 5 % (13-43) L 07/29/23 04:44 Monocytes % (Manual) 2 % (4-9) L 07/29/23 04:44 Plt Morphology Comment Normal (NORMAL) 07/29/23 04:44 RBC Morphology Normal (NORMAL) 07/29/23 04:44 D-Dimer 0.55 ug/ml (0.0-0.57) 07/27/23 05:10 Sample Site Rr 07/26/23 18:52 ABG pH 7.450 (7.35-7.45) 07/26/23 18:52 ABG pCO2 46.0 mmHg (35.0-45.0) H 07/26/23 18:52 ABG pO2 53.0 mmHg (80.0-100.0) L 07/26/23 18:52 ABG HCO3 32.0 mmol/L (22-26) H* 07/26/23 18:52 ABG O2 Saturation 89.0 % (90-100) L 07/26/23 18:52 ABG Base Excess 7.0 mmol/L (-2.0-2.0) H 07/26/23 18:52 Rip Test Pos 07/26/23 18:52 A-a Gradient 89.0 mmHg 07/26/23 18:52 FiO2 28.0 07/26/23 18:52 Blood Gas Comments Jeff well sw 07/26/23 18:52 Sodium 142 mmol/L (136-145) 07/31/23 04:35 Corrected Sodium TNP 07/31/23 04:35 Potassium 4.9 mmol/L (3.5-5.1) 07/31/23 04:35 Chloride 104 mmol/L (98-107) 07/31/23 04:35 Carbon Dioxide 39.7 mmol/L (21-32) H 07/31/23 04:35 BUN 22 mg/dL (7-18) H 07/31/23 04:35 Creatinine 0.99 mg/dL (0.55-1.02) 07/31/23 04:35 Est GFR (MDRD) Af Amer > 60 (>60) 07/31/23 04:35 Est GFR (MDRD) Non-Af > 60 (>60) 07/31/23 04:35 Glucose 80 mg/dL (65-99) 07/31/23 04:35 POC Glucose (mg/dL) 86 mg/dL (65-99) 07/31/23 05:39 Lactic Acid 0.9 mmol/L (0.4-2.0) 07/26/23 16:50 Calcium 8.3 mg/dL (8.5-10.1) L 07/31/23 04:35 Corrected Calcium 9.6 mg/dL (8.5-10.1) 07/31/23 04:35 Magnesium 1.8 mg/dL (2.0-2.9) L 07/31/23 04:35 Total Bilirubin 0.20 mg/dL (0.2-1.0) 07/31/23 04:35 AST 10 Units/L (15-37) L 07/31/23 04:35 ALT 10 Units/L (12-78) L 07/31/23 04:35 Alkaline Phosphatase 37 Units/L (46-116) L 07/31/23 04:35 Troponin I High Sens 8.0 ng/L (4.0-60.0) 07/26/23 16:58 B-Natriuretic Peptide 244 pg/mL (0-79) H 07/26/23 16:58 Total Protein 5.4 g/dL (6.4-8.2) L 07/31/23 04:35 Albumin 2.4 g/dL (3.4-5.0) L 07/31/23 04:35 Globulin 3.0 g/dL (2.5-4.5) 07/31/23 04:35 Albumin/Globulin Ratio 0.8 Ratio (1.1-2.1) L 07/31/23 04:35 Specimen Type Clean catch urine 07/27/23 14:30 Urine Color Yellow (YELLOW) 07/27/23 14:30 Urine Appearance Slightly hazy (CLEAR) 07/27/23 14:30 Urine pH 6.0 (5.0 - 8.0) 07/27/23 14:30 Ur Specific [place] 1.015 (1.000-1.030) 07/27/23 14:30 Urine Protein 2+ (NEGATIVE) 07/27/23 14:30 Urine Glucose (UA) Negative (NEGATIVE) 07/27/23 14:30 Urine Ketones Negative (NEGATIVE) 07/27/23 14:30 Urine Blood Negative (NEGATIVE) 07/27/23 14:30 Urine Nitrite Negative (NEGATIVE) 07/27/23 14:30 Urine Bilirubin Negative (NEGATIVE) 07/27/23 14:30 Urine Urobilinogen Normal (NORMAL) 07/27/23 14:30 Ur Leukocyte Esterase 2+ (NEGATIVE) 07/27/23 14:30 Urine RBC 0-2 /HPF (0-3) 07/27/23 14:30 Urine WBC 5-10 /HPF (0-5) A 07/27/23 14:30 Ur Squamous Epith Cells Numerous /HPF (NEGATIVE) 07/27/23 14:30 Urine Bacteria 2+ /HPF (NEGATIVE) 07/27/23 14:30 Ur Culture Indicated? Yes/culture set up 07/27/23 14:30 Reason For Visit: EXACERBATION COPD, HYPOXIA Discharge Diagnosis All Active Problems (Updated 07/27/23 @ 10:50 by Van Lamas) Hypomagnesemia (Acute) Hypokalemia (Acute) COPD exacerbation (Acute) Hypoxia (Acute) Hypoxia (Acute) Rhinosinusitis (Acute) Avascular necrosis of femoral head (Acute) Facet arthropathy, lumbar (Acute) COPD (chronic obstructive pulmonary disease) (Acute) Plan of Treatment: Continue with present treatment and follow up plan. Pt is to keep follow up appointment as instructed and take medications as ordered. Discharge Medications Discharge Medications: No Known Drug Allergies [NKDA] Allergy (Unknown, Verified 07/26/23 16:34) CONTINUE taking the following medications insulin aspar prot-insulin aspart 100 unit/mL (70-30) subcutaneous pen (Novolog Mix 70-30FlexPen U-100) See Rx Instructions .Route .COMPLEX 07/26/23 [History] trazodone 150 mg tablet 300 mg PO QPM 07/26/23 [History] New Prescriptions levofloxacin 500 mg tablet 500 mg PO QDAY 5 days #5 tabs 07/31/23 [Rx] Discharge Disposition Assessment: No acute distress noted. Discharge Plan Discharge Plan Hospital Course: Pt is a 63 year old female, past medical history of COPD, Hypertension, Hyperlipidemia, DMT2, presenting with shortness of breath, cough, and weakness. Reports symptoms have been gradually getting worse over the past 2 weeks since she had COVID-19. She was seen in [facility] clinic and was noted to be hypoxic with pulse ox and instructed to go to ER. In the ER, she was worked up and started on supplemental oxygen. Labs/imaging: Wbc 5.7, Hgb 13.4, Plt 203, Na 141, K 3.1>4.1, Creatinine 1.21, Glucose 237, LA 0.9, Mag 1.5, BNP 244, Troponin negative, AIT pending, Blood cultures pending, CXR was obtained that revealed no acute cardiopulmonary findings. ABG: pH 7.45, pCO2 46, pO2 53, HCO3 32, O2sat 89% on FiO2 28. Pt was admitted for COPD exacerbation, Hypokalemia, and Hypomagnesium. Will order Echo due to elevated BNP and D-dimer due to hypoxia. She is requiring 2L supplemental oxygen. Pt is receiving IV Rocephin, IV Solumedrol 40mg q8h. Scheduled bronchodilators. Wean/titrate supplemental oxygen as tolerated. Replete electrolytes per protocol. Otherwise continue with current treatment plan. Continue to close monitor and follow up labs/imaging. Patient Disposition: 01 HOME, SELF-CARE Condition: Stable Health Concerns: Post Hospitalization: new medications and changes needed to prevent readmission or further decline. Pt educated and given instructions on all concerns. Care Plan Goals: Problem: Respiratory Complications Goal: Improved Uncomplicated Respiratory Status Instructions: Follow provided instructions. Follow up with primary physician as directed. Contact primary care physician or report to the closest Emergency Room if condition worsens. Plan of Treatment: Continue with present treatment and follow up plan. Pt is to keep follow up appointment as instructed and take medications as ordered. Assessment: No acute distress noted. Prescription drug monitoring program results: PDMP reviewed and no concerns identified Prescriptions: New levofloxacin 500 mg tablet 500 mg PO QDAY 5 Days Qty: 5 0RF Continued (DME) FreeStyle Lite Strips Strip See Rx Instructions .Route Qty: 100 1RF Rx Instructions: As directed furosemide 40 mg tablet 40 mg PO QDAY PRN (Reason: for swelling) Qty: 30 1RF fluticasone propionate 50 mcg/actuation spray,suspension 1 spray intranasal BID 30 Days Qty: 16 0RF Rx Instructions: administer into each nostril (DME) FreeStyle Tom 14 Day Sensor Kit See Rx Instructions .Route Qty: 1 10RF Rx Instructions: As directed (DME) Dexcom G7 Sensor Device See Rx Instructions .Route Qty: 1 7RF Rx Instructions: As directed (DME) Dexcom G7 Tab Cutting Machine Operator Misc See Rx Instructions .Route Qty: 1 8RF Rx Instructions: As directed (DME) Dexcom G7 Misc See Rx Instructions .Route Qty: 1 8RF Rx Instructions: As directed gabapentin 300 mg capsule 600 mg PO TID 30 Days Qty: 180 3RF alprazolam 1 mg tablet 1 mg PO BID MDD 2 PRN (Reason: anxiety) 30 Days Qty: 60 0RF hydrocodone-acetaminophen 10-325 mg tablet 1 tab PO TID MDD 3 PRN (Reason: Pain) 30 Days Qty: 90 0RF diltiazem HCl 120 mg capsule,extended release 24 hr 120 mg PO QDAY 90 Days Qty: 90 1RF fenofibrate 160 mg tablet 160 mg PO QDAY 90 Days Qty: 90 1RF fluoxetine [Prozac] 40 mg capsule 40 mg PO QDAY 90 Days Qty: 90 1RF glimepiride 4 mg tablet 4 mg PO QDAY 90 Days Qty: 90 1RF Tradjenta 5 mg tablet 5 mg PO QDAY 90 Days Qty: 90 1RF lisinopril 20 mg tablet 20 mg PO BID 90 Days Qty: 180 1RF metoprolol tartrate 50 mg tablet 50 mg PO BID 90 Days Qty: 180 1RF pantoprazole 40 mg tablet,delayed release (DR/EC) 40 mg PO DAILY 90 Days Qty: 90 1RF tizanidine [Zanaflex] 4 mg tablet 4 mg PO QHS PRN (Reason: muscle spasticity) 30 Days Qty: 30 2RF trazodone 150 mg tablet 300 mg PO QPM insulin asp prt-insulin aspart [Novolog Mix 70-30FlexPen U-100] 100 unit/mL (70-30) insulin pen See Rx Instructions .ROUTE .COMPLEX Rx Instructions: TID PER SLIDING SCALE Follow ups/Referrals Follow ups/Referrals: Van Lamas [Primary Care Provider] - 08/07/23 11:40 am Instructions Instructions: Chronic Obstructive Pulmonary Disease Exacerbation, [id number], Health Risks of Smoking, How to Use a Nebulizer, Adult, Home Oxygen Use, Adult, Living With COPD, COPD and Physical Activity Stand Alone Forms: Post Hospital Follow Up Care
== END 2023-07-31 10:44 | disposition home or self-care (01) | DRG 192 ==
LOC: ER 16:08 → MED/SURG 19:50
PROVIDERS: ADMIT Obstetrics & Gynecology Obstetrics; ATTEND Family Medicine